=== PATIENT | male | born 1945 | race Caucasian/White ===

== ENCOUNTER 2017-09-11 21:24 | Emergency (ER) | payer OTHER ==
[~2017-09-11] VITALS: Ht 170.2 cm; Wt 69.0 kg
[~2017-09-11 21:24] MED LIST: ADV500 IH; ALBU8.5H8 IH; ESCI10TA PO; FLUT16H NASAL; MONT10TA21 PO; NAPR-58 PO; PANT40TA25 PO; PRED10 PO; ZOLP10TA7 PO
[2017-09-11 21:59] LABS: HEMATOCRIT 43.6 % (41-53); HEMOGLOBIN 14.7 g/dL (13.5-17.5); MEAN CORPUSCULAR HGB CONC 33.9 G/dL (31.0-37.0); MEAN CORPUSCULAR VOLUME 86 fL (80-100); PLATELET COUNT (AUTO) 247 K/uL (150-450); RED BLOOD CELL COUNT(AUTO) 5.09 MIL/uL (4.50-5.90); RED CELL DISTRIBUTION WIDTH 15.8 % (11.5-14.5)
[2017-09-11 22:21] LABS: ANION GAP 10 mmol/L (8-16); CALCIUM, TOTAL 8.8 mg/dL (8.8-10.5); CARBON DIOXIDE 26 mmol/L (22-29); CHLORIDE 101 mmol/L (98-107); CREATININE 0.95 mg/dL (0.60-1.30); GLOMERULAR FILTR. RATE CALC > 60 mL/min (>60); GLUCOSE,RANDOM 86 mg/dL (70-110); POTASSIUM 3.8 mmol/L (3.5-5.1); SODIUM SERUM 137 mmol/L (136-145); UREA NITROGEN, BLOOD 14 mg/dL (7-18)
[2017-09-11 22:24] LABS: ALANINE AMINOTRANSFERASE 34 U/L (12-78); ALBUMIN 3.6 g/dL (3.4-5.0); ALKALINE PHOSPHATASE 84 U/L (46-116); ASPARTATE AMINOTRANSFERASE 36 U/L (15-37)
[2017-09-11 22:25] LABS: INFLUENZA TYPE A POSITIVE FOR TYPE A (NEGATIVE); INFLUENZA TYPE B NEGATIVE FOR TYPE B (NEGATIVE)
[2017-09-11 22:41] LABS: BAND NEUTROPHILS % (MANUAL) 30 % (1-5); LYMPHOCYTES % (MANUAL) 2 % (22-44); MONOCYTES % (MANUAL) 3 % (2-9); SEGMENTED NEUTROPHILS % 65 % (40-70)
[2017-09-11] MEDS ORDERED: KETOROLAC TROMETHAMINE 30 MG/ML VIAL IVP ONE (22:45)
[2017-09-11] MEDS ORDERED: OSELTAMIVIR PHOSPHATE 75 MG CAPSULE PO ONE (22:45)
[2017-09-11] MEDS ORDERED: SODIUM CHLORIDE 0.9% 1,000 ML IV ONE (22:45)
[2017-09-11] MEDS ORDERED: ALBUTEROL SULFATE 2.5 MG/0.5 ML NEB SOLUTION NEB ONE (23:27)
[2017-09-12] MEDS ORDERED: 0.9% SODIUM CHLORIDE 5 ML NEB SOLUTION NEB ONE (00:08)
[2017-09-12 00:20] VITALS: BP 124/74
== END 2017-09-12 00:46 | disposition home or self-care (01) ==
LOC: EMS 21:26
DX: J11.1 Influenza due to unidentified influenza virus with other respiratory manifestations (principal); J02.9 Acute pharyngitis, unspecified; M79.1 Myalgia; J45.909 Unspecified asthma, uncomplicated; J44.9 Chronic obstructive pulmonary disease, unspecified; E11.9 Type 2 diabetes mellitus without complications
CPT/HCPCS: 36415; 71046; 80053; 83605; 85025; 87804; 93005; 94640; 96361; 96374; 99285; J1885; J7030

== ENCOUNTER 2018-10-31 14:21 | Emergency (ER) | payer OTHER ==
[~2018-10-31] VITALS: Ht 162.6 cm; Wt 72.7 kg
[~2018-10-31 14:21] MED LIST changes: -ESCI10TA PO; -NAPR-58 PO; -PANT40TA25 PO; -PRED10 PO; -ZOLP10TA7 PO
[2018-10-31 15:28] LABS: BASOPHILS % (AUTO) 1.1 % (0.0-2.0); EOSINOPHILS % (AUTO) 3.3 % (1.0-6.0); HEMATOCRIT 44.9 % (41-53); LYMPHOCYTES # (AUTO) 1.5 K/uL (1.0-4.8); LYMPHOCYTES % (AUTO) 20.3 % (22.0-44.0); MEAN CORPUSCULAR HEMOGLOBIN 27.6 pg (26.0-34.0); MEAN CORPUSCULAR HGB CONC 33.4 G/dL (31.0-37.0); MEAN CORPUSCULAR VOLUME 83 fL (80-100); MONOCYTES # (AUTO) 0.8 K/uL (0.1-1.0); NEUTROPHILS # (AUTO) 4.9 K/uL (1.8-7.7); NEUTROPHILS % (AUTO) 65.3 % (40.0-70.0); PLATELET COUNT (AUTO) 326 K/uL (150-450); RED BLOOD CELL COUNT(AUTO) 5.43 MIL/uL (4.50-5.90); RED CELL DISTRIBUTION WIDTH 15.1 % (11.5-14.5)
[2018-10-31 15:37] LABS: ANION GAP 8 mmol/L (8-16); CALCIUM, TOTAL 8.5 mg/dL (8.8-10.5); CARBON DIOXIDE 28 mmol/L (22-29); CHLORIDE 106 mmol/L (98-107); CREATININE 0.76 mg/dL (0.60-1.30); GLUCOSE,RANDOM 107 mg/dL (70-110); POTASSIUM 3.7 mmol/L (3.5-5.1); SODIUM SERUM 142 mmol/L (136-145); UREA NITROGEN, BLOOD 14 mg/dL (7-18)
[2018-10-31 15:38] LABS: GLOMERULAR FILTR. RATE CALC > 60 mL/min (>60)
[2018-10-31 15:44] LABS: ALANINE AMINOTRANSFERASE 45 U/L (12-78); ALBUMIN 2.5 g/dL (3.4-5.0); ALKALINE PHOSPHATASE 89 U/L (46-116); ASPARTATE AMINOTRANSFERASE 28 U/L (15-37); BILIRUBIN,TOTAL 0.5 mg/dL (0.1-1.0); TOTAL PROTEIN, SERUM 7.1 g/dL (6.4-8.2)
[2018-10-31] MEDS ORDERED: ALBUTEROL SULFATE 5 MG/ML 20 ML NEB SOLN [BULK] NEB ONE (16:30)
[2018-10-31] MEDS ORDERED: IPRATROPIUM BROMIDE 0.5 MG/2.5 ML NEB SOLUTION NEB ONE (16:30)
[2018-10-31] MEDS ORDERED: CefTRIAXone 1 GM/DEXTROSE 50 ML IV ONE (18:00)
[2018-10-31] MEDS ORDERED: MethylPREDNISolone SOD SUCC 125 MG/2 ML VIAL IVP ONE (18:00)
[2018-10-31] MEDS ORDERED: AZITHROMYCIN 500 MG/NS 250 ML IV ONE (18:00)
[2018-10-31] MEDS ORDERED: SODIUM CHLORIDE 0.9% 1,000 ML IV ONE (18:00)
[2018-10-31] MEDS ORDERED: ONDANSETRON HCL 4 MG/2 ML VIAL IVP PRN (19:00)
[2018-10-31] MEDS ORDERED: ACETAMINOPHEN 325 MG TABLET PO PRN (19:00)
[2018-10-31] MEDS ORDERED: 0.9% SODIUM CHLORIDE 10 ML SYRINGE IVP PRN (19:00)
[2018-10-31] MEDS ORDERED: ALBUTEROL SULFATE 2.5 MG/0.5 ML NEB SOLUTION NEB SCH (20:00)
[2018-10-31] MEDS ORDERED: IPRATROPIUM BROMIDE 0.5 MG/2.5 ML NEB SOLUTION NEB SCH (20:00)
[2018-10-31 22:20] VITALS: BP 106/76
== END 2018-10-31 23:11 | disposition short-term general hospital (02) ==
LOC: EMS 14:23
DX: J45.901 Unspecified asthma with (acute) exacerbation (principal); R09.02 Hypoxemia; J18.9 Pneumonia, unspecified organism; J44.9 Chronic obstructive pulmonary disease, unspecified
CPT/HCPCS: 36415; 70450; 71045; 80053; 83880; 84484; 85025; 87040; 93005; 94640; 96365; 96368; 96375; 99285; J0456; J0696; J2930; J7030

== ENCOUNTER 2019-04-26 06:01 | Day surgery (SDC) | payer OTHER ==
[~2019-04-26] VITALS: Ht 172.7 cm; Wt 65.9 kg
[~2019-04-26 06:01] MED LIST changes: +SODIUM CHLORIDE 0.9% 1,000 ML IV ONE
[2019-04-26] MEDS ORDERED: LIDOCAINE 4% 50 ML SOLUTION TP ONE (06:02)
[2019-04-26] MEDS ORDERED: BENZOCAINE 20% 50 MCG/SPRAY 57 GM TP ONE (06:02)
[2019-04-26] MEDS ORDERED: LIDOCAINE 2% 5 ML JELLY TP ONE ×2 (06:02)
[2019-04-26] MEDS ORDERED: ALBUTEROL SULFATE 2.5 MG/0.5 ML NEB SOLUTION NEB ONE (06:02)
[2019-04-26] MEDS ORDERED: SODIUM CHLORIDE 0.9% 1,000 ML IV ONE (06:30)
[2019-04-26] MEDS ORDERED: MEGE40 PO (06:54)
[2019-04-26] MEDS ORDERED: DULO30CA2 PO (06:54)
[2019-04-26] MEDS ORDERED: OMEP20 PO (06:54)
[2019-04-26] MEDS ORDERED: FentaNYL CITRATE-PF 100 MCG/2 ML VIAL ONE (07:40)
[2019-04-26] MEDS ORDERED: MIDAZOLAM HCL 2 MG/2 ML VIAL ONE (07:40)
[2019-04-26] MEDS ORDERED: MethylPREDNISolone SOD SUCC 125 MG/2 ML VIAL IVP ONE (08:30)
[2019-04-26] MEDS ORDERED: MethylPREDNISolone SOD SUCC 125 MG/2 ML VIAL ONE (08:48)
[2019-04-26] MEDS ORDERED: OXYGEN THERAPY IH SCH (20:00)
== END 2019-04-26 10:00 | disposition home or self-care (01) ==
LOC: SURGERY 06:01
PROVIDERS: ATTEND Internal Medicine Critical Care Medicine
DX: J38.4 Edema of larynx (principal); B37.0 Candidal stomatitis; J44.9 Chronic obstructive pulmonary disease, unspecified; J98.8 Other specified respiratory disorders; Z79.899 Other long term (current) drug therapy; Z98.890 Other specified postprocedural states
CPT/HCPCS: 31623; 31624; 71045; 87015; 87070; 87077; 87101; 87186; 87205; 87206; 87220; 88108; 88312; J2250; J2930; J3010; J7030

== ENCOUNTER 2019-06-08 21:26 | Inpatient (IN) | payer OTHER ==
[~2019-06-08] VITALS: Ht 162.6 cm; Wt 65.8 kg
[~2019-06-08 21:26] MED LIST changes: +DULO30CA2 PO; +MEGE40 PO; +OMEP20 PO; -SODIUM CHLORIDE 0.9% 1,000 ML IV ONE
[2019-06-08] MEDS ORDERED: PRED10TA3 PO (22:04)
[2019-06-08] MEDS ORDERED: GABA-531 PO (22:04)
[2019-06-08] MEDS ORDERED: ISON300T17 PO (22:04)
[2019-06-08] MEDS ORDERED: PYRA500 PO (22:04)
[2019-06-08] MEDS ORDERED: DIPH12.55 PO (22:04)
[2019-06-08] MEDS ORDERED: RIFA300C4 PO (22:04)
[2019-06-08] MEDS ORDERED: VIT1TABL76 PO (22:04)
[2019-06-08 23:16] LABS: EOSINOPHILS % (AUTO) 7.8 % (1.0-6.0); HEMATOCRIT 43.3 % (41-53); HEMOGLOBIN 14.3 g/dL (13.5-17.5); LYMPHOCYTES # (AUTO) 1.4 K/uL (1.0-4.8); LYMPHOCYTES % (AUTO) 13.6 % (22.0-44.0); MEAN CORPUSCULAR HGB CONC 33.1 G/dL (31.0-37.0); MEAN CORPUSCULAR VOLUME 88 fL (80-100); MONOCYTES # (AUTO) 0.9 K/uL (0.1-1.0); MONOCYTES % (AUTO) 9.1 % (2.0-9.0); NEUTROPHILS % (AUTO) 68.5 % (40.0-70.0); PLATELET COUNT (AUTO) 243 K/uL (150-450); RED BLOOD CELL COUNT(AUTO) 4.94 MIL/uL (4.50-5.90); RED CELL DISTRIBUTION WIDTH 15.5 % (11.5-14.5)
[2019-06-08 23:25] LABS: ANION GAP 8 mmol/L (8-16); CALCIUM, TOTAL 8.1 mg/dL (8.8-10.5); CARBON DIOXIDE 27 mmol/L (22-29); CHLORIDE 108 mmol/L (98-107); CREATININE 0.86 mg/dL (0.60-1.30); GLUCOSE,RANDOM 84 mg/dL (70-110); POTASSIUM 4.5 mmol/L (3.5-5.1); SODIUM SERUM 143 mmol/L (136-145); UREA NITROGEN, BLOOD 19 mg/dL (7-18)
[2019-06-08 23:26] LABS: GLOMERULAR FILTR. RATE CALC > 60 mL/min (>60)
[2019-06-08 23:33] LABS: LACTIC ACID 0.8 mmol/L (0.4-2.0)
[2019-06-08 23:40] LABS: ALANINE AMINOTRANSFERASE 22 U/L (12-78); ALBUMIN 2.7 g/dL (3.4-5.0); ALKALINE PHOSPHATASE 91 U/L (46-116); ASPARTATE AMINOTRANSFERASE 17 U/L (15-37); BILIRUBIN,TOTAL 1.1 mg/dL (0.1-1.0); TOTAL PROTEIN, SERUM 7.3 g/dL (6.4-8.2)
[2019-06-08] MEDS ORDERED: VANCOMYCIN HCL 1.25 GM in DEXTROSE 5%-WATER 250 ML IV ONE (23:45)
[2019-06-08] MEDS ORDERED: CEFEPIME HCL 1 GM in DEXTROSE 5%-WATER 50 ML IV ONE (23:45)
[2019-06-08] MEDS ORDERED: VANCOMYCIN HCL 1.5 GM in DEXTROSE 5%-WATER 250 ML IV ONE (23:45)
[2019-06-09] MEDS ORDERED: 0.9% SODIUM CHLORIDE 10 ML SYRINGE IVP PRN (00:30)
[2019-06-09] MEDS ORDERED: ONDANSETRON HCL 4 MG/2 ML VIAL IVP PRN ×2 (00:30→18:00)
[2019-06-09] MEDS ORDERED: ACETAMINOPHEN 325 MG TABLET PO PRN (00:30)
[2019-06-09 01:00] VITALS: BP 110/57
[2019-06-09 02:30] VITALS: BP 110/57
[2019-06-09 07:43] VITALS: BP 107/67
[2019-06-09 11:47] VITALS: BP 104/67
[2019-06-09 15:27] VITALS: BP 110/70
[2019-06-09] MEDS ORDERED: SODIUM CHLORIDE 0.9% 500 ML IV ONE (17:05)
[2019-06-09] MEDS: RIFAMPIN 300 MG CAPSULE PO SCH (17:35)
[2019-06-09] MEDS: ISONIAZID 300 MG TABLET PO SCH (17:35)
[2019-06-09] MEDS: PYRAZINAMIDE 500 MG TABLET PO SCH (17:35)
[2019-06-09] MEDS: CefTRIAXone 1 GM/DEXTROSE 50 ML IV SCH (17:35)
[2019-06-09] MEDS ORDERED: BISACODYL 10 MG RECTAL RECTAL SUPPOSITORY PR PRN (18:00)
[2019-06-09] MEDS: AZITHROMYCIN 250 MG in SODIUM CHLORIDE 0.9% 150 ML IV SCH (18:16)
[2019-06-09] MEDS ORDERED: ALBUTEROL SULFATE 2.5 MG/0.5 ML NEB SOLUTION NEB PRN (18:30)
[2019-06-09] MEDS: IPRATROPIUM BROMIDE 0.5 MG/2.5 ML NEB SOLUTION NEB SCH ×2 (19:20→23:06)
[2019-06-09] MEDS: ALBUTEROL SULFATE 2.5 MG/0.5 ML NEB SOLUTION NEB SCH ×2 (19:20→23:06)
[2019-06-09 19:51] VITALS: BP 98/60
[2019-06-10 00:07] VITALS: BP 109/66
[2019-06-10] MEDS: IPRATROPIUM BROMIDE 0.5 MG/2.5 ML NEB SOLUTION NEB SCH ×6 (02:31→23:21)
[2019-06-10] MEDS: ALBUTEROL SULFATE 2.5 MG/0.5 ML NEB SOLUTION NEB SCH ×6 (02:31→23:21)
[2019-06-10 04:25] VITALS: BP 105/58
[2019-06-10 05:38] LABS: BASOPHILS % (AUTO) 1.2 % (0.0-2.0); EOSINOPHILS % (AUTO) 7.5 % (1.0-6.0); HEMOGLOBIN 14.7 g/dL (13.5-17.5); LYMPHOCYTES # (AUTO) 1.5 K/uL (1.0-4.8); LYMPHOCYTES % (AUTO) 14.7 % (22.0-44.0); MEAN CORPUSCULAR HEMOGLOBIN 29.6 pg (26.0-34.0); MEAN CORPUSCULAR HGB CONC 34.1 G/dL (31.0-37.0); MEAN CORPUSCULAR VOLUME 87 fL (80-100); MONOCYTES # (AUTO) 0.8 K/uL (0.1-1.0); MONOCYTES % (AUTO) 8.2 % (2.0-9.0); NEUTROPHILS # (AUTO) 6.8 K/uL (1.8-7.7); NEUTROPHILS % (AUTO) 68.4 % (40.0-70.0); PLATELET COUNT (AUTO) 232 K/uL (150-450); RED BLOOD CELL COUNT(AUTO) 4.96 MIL/uL (4.50-5.90); RED CELL DISTRIBUTION WIDTH 14.9 % (11.5-14.5)
[2019-06-10 06:00] LABS: ALANINE AMINOTRANSFERASE 17 U/L (12-78); ALBUMIN 2.7 g/dL (3.4-5.0); ALKALINE PHOSPHATASE 86 U/L (46-116); ANION GAP 10 mmol/L (8-16); ASPARTATE AMINOTRANSFERASE 17 U/L (15-37); BILIRUBIN,TOTAL 1.4 mg/dL (0.1-1.0); CALCIUM, TOTAL 8.5 mg/dL (8.8-10.5); CARBON DIOXIDE 25 mmol/L (22-29); CHLORIDE 104 mmol/L (98-107); CREATININE 0.65 mg/dL (0.60-1.30); GLOMERULAR FILTR. RATE CALC > 60 mL/min (>60); GLUCOSE,RANDOM 85 mg/dL (70-110); POTASSIUM 3.9 mmol/L (3.5-5.1); SODIUM SERUM 139 mmol/L (136-145); TOTAL PROTEIN, SERUM 7.3 g/dL (6.4-8.2); UREA NITROGEN, BLOOD 11 mg/dL (7-18)
[2019-06-10 07:05] VITALS: BP 105/56
[2019-06-10] MEDS: PYRAZINAMIDE 500 MG TABLET PO SCH (09:05)
[2019-06-10] MEDS: ISONIAZID 300 MG TABLET PO SCH (09:05)
[2019-06-10] MEDS: RIFAMPIN 300 MG CAPSULE PO SCH (09:05)
[2019-06-10 11:47] VITALS: BP 132/72
[2019-06-10 16:11] VITALS: BP 99/60
[2019-06-10] MEDS: CefTRIAXone 1 GM/DEXTROSE 50 ML IV SCH (16:43)
[2019-06-10] MEDS: AZITHROMYCIN 250 MG in SODIUM CHLORIDE 0.9% 150 ML IV SCH (17:43)
[2019-06-10 20:10] VITALS: BP 100/65
[2019-06-11] VITALS (7 sets, daily range): BP systolic 95–117; BP diastolic 56–78
[2019-06-11] MEDS: ALBUTEROL SULFATE 2.5 MG/0.5 ML NEB SOLUTION NEB SCH ×6 (03:56→22:33)
[2019-06-11] MEDS: IPRATROPIUM BROMIDE 0.5 MG/2.5 ML NEB SOLUTION NEB SCH ×6 (03:56→22:33)
[2019-06-11 06:30] LABS: ALANINE AMINOTRANSFERASE 15 U/L (12-78); ALBUMIN 2.5 g/dL (3.4-5.0); ALKALINE PHOSPHATASE 85 U/L (46-116); ANION GAP 13 mmol/L (8-16); ASPARTATE AMINOTRANSFERASE 15 U/L (15-37); BILIRUBIN,TOTAL 0.6 mg/dL (0.1-1.0); CALCIUM, TOTAL 8.2 mg/dL (8.8-10.5); CARBON DIOXIDE 22 mmol/L (22-29); CHLORIDE 105 mmol/L (98-107); CREATININE 0.58 mg/dL (0.60-1.30); GLUCOSE,RANDOM 80 mg/dL (70-110); POTASSIUM 3.5 mmol/L (3.5-5.1); SODIUM SERUM 140 mmol/L (136-145); TOTAL PROTEIN, SERUM 7.3 g/dL (6.4-8.2); UREA NITROGEN, BLOOD 10 mg/dL (7-18)
[2019-06-11 06:46] LABS: GLOMERULAR FILTR. RATE CALC > 60 mL/min (>60)
[2019-06-11 07:16] LABS: HIV 1-2 SCREEN 4TH GEN W/RFLX Non Reactive (Non Reactive)
[2019-06-11] MEDS: ISONIAZID 300 MG TABLET PO SCH (08:25)
[2019-06-11] MEDS: RIFAMPIN 300 MG CAPSULE PO SCH (08:25)
[2019-06-11] MEDS: PYRIDOXINE HCL 50 MG TABLET PO SCH (08:25)
[2019-06-11] MEDS: PYRAZINAMIDE 500 MG TABLET PO SCH (08:25)
[2019-06-11] MEDS ORDERED: DIPH25 PO (10:54)
[2019-06-11] MEDS: AZITHROMYCIN 500 MG/NS 250 ML IV SCH (12:18)
[2019-06-11] MEDS: FAMOTIDINE 20 MG TABLET PO SCH ×2 (12:18→20:40)
[2019-06-11] MEDS: ACETAMINOPHEN 325 MG TABLET PO PRN ×2 (14:07→22:54)
[2019-06-11] MEDS: CefTRIAXone 1 GM/DEXTROSE 50 ML IV SCH (16:15)
[2019-06-12] MEDS: ALBUTEROL SULFATE 2.5 MG/0.5 ML NEB SOLUTION NEB SCH ×6 (02:38→23:23)
[2019-06-12] MEDS: IPRATROPIUM BROMIDE 0.5 MG/2.5 ML NEB SOLUTION NEB SCH ×6 (02:38→23:23)
[2019-06-12 05:33] VITALS: BP 105/67
[2019-06-12 07:19] LABS: BASOPHILS % (AUTO) 1.3 % (0.0-2.0); EOSINOPHILS % (AUTO) 9.2 % (1.0-6.0); HEMATOCRIT 39.8 % (41-53); HEMOGLOBIN 13.5 g/dL (13.5-17.5); LYMPHOCYTES % (AUTO) 13.2 % (22.0-44.0); MEAN CORPUSCULAR HEMOGLOBIN 29.1 pg (26.0-34.0); MEAN CORPUSCULAR HGB CONC 33.8 G/dL (31.0-37.0); MEAN CORPUSCULAR VOLUME 86 fL (80-100); MONOCYTES # (AUTO) 0.6 K/uL (0.1-1.0); MONOCYTES % (AUTO) 8.2 % (2.0-9.0); NEUTROPHILS # (AUTO) 5.3 K/uL (1.8-7.7); NEUTROPHILS % (AUTO) 68.1 % (40.0-70.0); PLATELET COUNT (AUTO) 210 K/uL (150-450); RED BLOOD CELL COUNT(AUTO) 4.62 MIL/uL (4.50-5.90); RED CELL DISTRIBUTION WIDTH 14.9 % (11.5-14.5)
[2019-06-12 07:40] LABS: ALANINE AMINOTRANSFERASE 13 U/L (12-78); ALBUMIN 2.3 g/dL (3.4-5.0); ALKALINE PHOSPHATASE 76 U/L (46-116); ANION GAP 11 mmol/L (8-16); ASPARTATE AMINOTRANSFERASE 17 U/L (15-37); BILIRUBIN,TOTAL 0.4 mg/dL (0.1-1.0); CARBON DIOXIDE 23 mmol/L (22-29); CHLORIDE 104 mmol/L (98-107); CREATININE 0.57 mg/dL (0.60-1.30); GLUCOSE,RANDOM 83 mg/dL (70-110); POTASSIUM 3.7 mmol/L (3.5-5.1); SODIUM SERUM 138 mmol/L (136-145); TOTAL PROTEIN, SERUM 6.7 g/dL (6.4-8.2); UREA NITROGEN, BLOOD 11 mg/dL (7-18)
[2019-06-12 07:45] LABS: GLOMERULAR FILTR. RATE CALC > 60 mL/min (>60)
[2019-06-12 08:17] VITALS: BP 100/60
[2019-06-12] MEDS: FAMOTIDINE 20 MG TABLET PO SCH ×2 (10:06→20:55)
[2019-06-12] MEDS: ISONIAZID 300 MG TABLET PO SCH (10:07)
[2019-06-12] MEDS: PYRAZINAMIDE 500 MG TABLET PO SCH (10:07)
[2019-06-12] MEDS: RIFAMPIN 300 MG CAPSULE PO SCH (10:07)
[2019-06-12] MEDS: PYRIDOXINE HCL 50 MG TABLET PO SCH (10:08)
[2019-06-12] MEDS: AZITHROMYCIN 500 MG/NS 250 ML IV SCH (11:55)
[2019-06-12] MEDS: OxyCODONE HCL/ACETAMINOPHEN 5-325 MG TABLET PO PRN (11:57)
[2019-06-12 12:22] VITALS: BP 98/60
[2019-06-12 15:24] VITALS: BP 101/67
[2019-06-12] MEDS: CefTRIAXone 1 GM/DEXTROSE 50 ML IV SCH (16:19)
[2019-06-12 17:37] LABS: QUANTIFERON+, Nil Value 0.02 IU/mL; QUANTIFERON+,Mitogen Value 3.31 IU/mL; QUANTIFERON+,TB1 Antigen Value 0.21 IU/mL; QUANTIFERON, TB GOLD PLUS Negative (Negative)
[2019-06-12 20:51] VITALS: BP 99/65
[2019-06-12] MEDS: ACETAMINOPHEN 325 MG TABLET PO PRN (20:56)
[2019-06-13 00:30] VITALS: BP 95/64
[2019-06-13] MEDS: IPRATROPIUM BROMIDE 0.5 MG/2.5 ML NEB SOLUTION NEB SCH ×6 (03:43→23:00)
[2019-06-13] MEDS: ALBUTEROL SULFATE 2.5 MG/0.5 ML NEB SOLUTION NEB SCH ×6 (03:43→23:00)
[2019-06-13 05:45] VITALS: BP 109/59
[2019-06-13 08:00] VITALS: BP 102/64
[2019-06-13] MEDS: PYRIDOXINE HCL 50 MG TABLET PO SCH (08:43)
[2019-06-13] MEDS: RIFAMPIN 300 MG CAPSULE PO SCH (08:43)
[2019-06-13] MEDS: ISONIAZID 300 MG TABLET PO SCH (08:43)
[2019-06-13] MEDS: FAMOTIDINE 20 MG TABLET PO SCH ×2 (08:44→21:32)
[2019-06-13] MEDS: PYRAZINAMIDE 500 MG TABLET PO SCH (08:44)
[2019-06-13] MEDS: OxyCODONE HCL/ACETAMINOPHEN 5-325 MG TABLET PO PRN ×2 (08:48→21:38)
[2019-06-13 09:33] LABS: HEMATOCRIT 42.4 % (41-53); HEMOGLOBIN 14.2 g/dL (13.5-17.5); MEAN CORPUSCULAR HEMOGLOBIN 28.9 pg (26.0-34.0); MEAN CORPUSCULAR HGB CONC 33.4 G/dL (31.0-37.0); MEAN CORPUSCULAR VOLUME 87 fL (80-100); PLATELET COUNT (AUTO) 228 K/uL (150-450); RED CELL DISTRIBUTION WIDTH 14.7 % (11.5-14.5)
[2019-06-13 09:43] LABS: ANION GAP 13 mmol/L (8-16); CALCIUM, TOTAL 8.3 mg/dL (8.8-10.5); CARBON DIOXIDE 21 mmol/L (22-29); CHLORIDE 103 mmol/L (98-107); CREATININE 0.54 mg/dL (0.60-1.30); GLOMERULAR FILTR. RATE CALC > 60 mL/min (>60); GLUCOSE,RANDOM 120 mg/dL (70-110); POTASSIUM 3.7 mmol/L (3.5-5.1); SODIUM SERUM 137 mmol/L (136-145); UREA NITROGEN, BLOOD 11 mg/dL (7-18)
[2019-06-13 10:08] LABS: BAND NEUTROPHILS % (MANUAL) 2 % (0-5); EOSINOPHILS % (MANUAL) 9 % (1-6); LYMPHOCYTES % (MANUAL) 14 % (22-44); MONOCYTES % (MANUAL) 7 % (2-9); SEGMENTED NEUTROPHILS % 68 % (40-70)
[2019-06-13 11:30] VITALS: BP 91/50
[2019-06-13 13:20] VITALS: BP 101/57
[2019-06-13] MEDS: CefTRIAXone 1 GM/DEXTROSE 50 ML IV SCH (17:14)
[2019-06-13 19:30] VITALS: BP 109/60
[2019-06-14] MEDS: ALBUTEROL SULFATE 2.5 MG/0.5 ML NEB SOLUTION NEB SCH ×6 (02:43→22:51)
[2019-06-14] MEDS: IPRATROPIUM BROMIDE 0.5 MG/2.5 ML NEB SOLUTION NEB SCH ×6 (02:43→22:51)
[2019-06-14 04:00] VITALS: BP 118/72
[2019-06-14 05:41] LABS: BASOPHILS % (AUTO) 0.6 % (0.0-2.0); EOSINOPHILS % (AUTO) 7.2 % (1.0-6.0); HEMATOCRIT 42.7 % (41-53); HEMOGLOBIN 14.2 g/dL (13.5-17.5); LYMPHOCYTES % (AUTO) 11.7 % (22.0-44.0); MEAN CORPUSCULAR HEMOGLOBIN 28.6 pg (26.0-34.0); MEAN CORPUSCULAR HGB CONC 33.3 G/dL (31.0-37.0); MEAN CORPUSCULAR VOLUME 86 fL (80-100); MONOCYTES # (AUTO) 0.5 K/uL (0.1-1.0); MONOCYTES % (AUTO) 5.9 % (2.0-9.0); NEUTROPHILS # (AUTO) 6.5 K/uL (1.8-7.7); NEUTROPHILS % (AUTO) 74.6 % (40.0-70.0); PLATELET COUNT (AUTO) 252 K/uL (150-450); RED BLOOD CELL COUNT(AUTO) 4.97 MIL/uL (4.50-5.90); RED CELL DISTRIBUTION WIDTH 14.8 % (11.5-14.5)
[2019-06-14 05:59] LABS: ALANINE AMINOTRANSFERASE 19 U/L (12-78); ALBUMIN 2.4 g/dL (3.4-5.0); ALKALINE PHOSPHATASE 83 U/L (46-116); ANION GAP 10 mmol/L (8-16); ASPARTATE AMINOTRANSFERASE 26 U/L (15-37); BILIRUBIN,TOTAL 0.3 mg/dL (0.1-1.0); CALCIUM, TOTAL 8.2 mg/dL (8.8-10.5); CARBON DIOXIDE 24 mmol/L (22-29); CHLORIDE 102 mmol/L (98-107); GLUCOSE,RANDOM 82 mg/dL (70-110); POTASSIUM 3.8 mmol/L (3.5-5.1); SODIUM SERUM 136 mmol/L (136-145); TOTAL PROTEIN, SERUM 7.1 g/dL (6.4-8.2); UREA NITROGEN, BLOOD 10 mg/dL (7-18)
[2019-06-14 06:02] LABS: GLOMERULAR FILTR. RATE CALC > 60 mL/min (>60)
[2019-06-14 07:47] VITALS: BP 119/63
[2019-06-14] MEDS: RIFAMPIN 300 MG CAPSULE PO SCH (08:08)
[2019-06-14] MEDS: PYRIDOXINE HCL 50 MG TABLET PO SCH (08:09)
[2019-06-14] MEDS: PYRAZINAMIDE 500 MG TABLET PO SCH (08:09)
[2019-06-14] MEDS: ISONIAZID 300 MG TABLET PO SCH (08:09)
[2019-06-14] MEDS: FAMOTIDINE 20 MG TABLET PO SCH ×2 (08:09→20:23)
[2019-06-14] MEDS ORDERED: GADOBUTROL 1 MMOL/ML 10 ML VIAL IVP ONE (08:30)
[2019-06-14 11:22] VITALS: BP 117/71
[2019-06-14 11:25] LABS: LEGIONELLA PNEUMO AG URINE Negative (Negative); ORGANISM ID Not indicated.; S PNEUMO SOURCE Urine; STREP PNEUMONIAE AG URINE Negative (Negative); STREP.PNEUMO BODY FLUID CULT. Not Indicated
[2019-06-14] MEDS: OxyCODONE HCL/ACETAMINOPHEN 5-325 MG TABLET PO PRN ×2 (11:25→20:23)
[2019-06-14 15:37] VITALS: BP 91/59
[2019-06-14] MEDS: CefTRIAXone 1 GM/DEXTROSE 50 ML IV SCH (16:59)
[2019-06-14 20:25] VITALS: BP 131/90
[2019-06-14 23:35] VITALS: BP 143/87
[2019-06-15] MEDS: IPRATROPIUM BROMIDE 0.5 MG/2.5 ML NEB SOLUTION NEB SCH ×6 (03:31→23:33)
[2019-06-15] MEDS: ALBUTEROL SULFATE 2.5 MG/0.5 ML NEB SOLUTION NEB SCH ×6 (03:31→23:33)
[2019-06-15 04:00] VITALS: BP 127/87
[2019-06-15 05:23] LABS: BASOPHILS % (AUTO) 0.5 % (0.0-2.0); EOSINOPHILS % (AUTO) 4.9 % (1.0-6.0); LYMPHOCYTES # (AUTO) 1.3 K/uL (1.0-4.8); LYMPHOCYTES % (AUTO) 11.9 % (22.0-44.0); MEAN CORPUSCULAR HGB CONC 34.8 G/dL (31.0-37.0); MEAN CORPUSCULAR VOLUME 86 fL (80-100); MONOCYTES # (AUTO) 0.7 K/uL (0.1-1.0); MONOCYTES % (AUTO) 6.9 % (2.0-9.0); NEUTROPHILS # (AUTO) 8.2 K/uL (1.8-7.7); NEUTROPHILS % (AUTO) 75.8 % (40.0-70.0); PLATELET COUNT (AUTO) 278 K/uL (150-450); RED BLOOD CELL COUNT(AUTO) 4.99 MIL/uL (4.50-5.90); RED CELL DISTRIBUTION WIDTH 14.6 % (11.5-14.5)
[2019-06-15 05:33] LABS: ANION GAP 10 mmol/L (8-16); CALCIUM, TOTAL 8.5 mg/dL (8.8-10.5); CARBON DIOXIDE 24 mmol/L (22-29); CHLORIDE 97 mmol/L (98-107); GLUCOSE,RANDOM 90 mg/dL (70-110); POTASSIUM 3.8 mmol/L (3.5-5.1); SODIUM SERUM 131 mmol/L (136-145); UREA NITROGEN, BLOOD 11 mg/dL (7-18)
[2019-06-15 05:34] LABS: GLOMERULAR FILTR. RATE CALC > 60 mL/min (>60)
[2019-06-15 07:00] VITALS: BP 94/69
[2019-06-15] MEDS: RIFAMPIN 300 MG CAPSULE PO SCH (09:07)
[2019-06-15] MEDS: FAMOTIDINE 20 MG TABLET PO SCH ×2 (09:07→20:02)
[2019-06-15] MEDS: ISONIAZID 300 MG TABLET PO SCH (09:07)
[2019-06-15] MEDS: PYRIDOXINE HCL 50 MG TABLET PO SCH (09:07)
[2019-06-15] MEDS: PYRAZINAMIDE 500 MG TABLET PO SCH (09:08)
[2019-06-15] MEDS: OxyCODONE HCL/ACETAMINOPHEN 5-325 MG TABLET PO PRN ×2 (10:51→20:02)
[2019-06-15 11:00] VITALS: BP 102/61
[2019-06-15 15:00] VITALS: BP 97/64
[2019-06-15] MEDS: CefTRIAXone 1 GM/DEXTROSE 50 ML IV SCH (17:25)
[2019-06-15 20:30] VITALS: BP 108/71
[2019-06-16] VITALS (7 sets, daily range): BP systolic 89–136; BP diastolic 59–75
[2019-06-16] MEDS: IPRATROPIUM BROMIDE 0.5 MG/2.5 ML NEB SOLUTION NEB SCH ×4 (03:31→15:11)
[2019-06-16] MEDS: ALBUTEROL SULFATE 2.5 MG/0.5 ML NEB SOLUTION NEB SCH ×4 (03:31→15:11)
[2019-06-16 05:44] LABS: BASOPHILS % (AUTO) 0.7 % (0.0-2.0); EOSINOPHILS % (AUTO) 5.9 % (1.0-6.0); HEMATOCRIT 41.2 % (41-53); LYMPHOCYTES # (AUTO) 1.3 K/uL (1.0-4.8); LYMPHOCYTES % (AUTO) 13.8 % (22.0-44.0); MEAN CORPUSCULAR HEMOGLOBIN 29.1 pg (26.0-34.0); MEAN CORPUSCULAR VOLUME 86 fL (80-100); MONOCYTES # (AUTO) 0.7 K/uL (0.1-1.0); MONOCYTES % (AUTO) 8.1 % (2.0-9.0); NEUTROPHILS # (AUTO) 6.6 K/uL (1.8-7.7); NEUTROPHILS % (AUTO) 71.5 % (40.0-70.0); PLATELET COUNT (AUTO) 300 K/uL (150-450); RED BLOOD CELL COUNT(AUTO) 4.81 MIL/uL (4.50-5.90); RED CELL DISTRIBUTION WIDTH 14.4 % (11.5-14.5)
[2019-06-16 05:53] LABS: ANION GAP 9 mmol/L (8-16); CALCIUM, TOTAL 8.3 mg/dL (8.8-10.5); CARBON DIOXIDE 25 mmol/L (22-29); CHLORIDE 97 mmol/L (98-107); CREATININE 0.55 mg/dL (0.60-1.30); GLUCOSE,RANDOM 86 mg/dL (70-110); POTASSIUM 3.7 mmol/L (3.5-5.1); SODIUM SERUM 131 mmol/L (136-145); UREA NITROGEN, BLOOD 10 mg/dL (7-18)
[2019-06-16 05:57] LABS: GLOMERULAR FILTR. RATE CALC > 60 mL/min (>60)
[2019-06-16] MEDS: PYRIDOXINE HCL 50 MG TABLET PO SCH (08:07)
[2019-06-16] MEDS: FAMOTIDINE 20 MG TABLET PO SCH ×2 (08:07→20:12)
[2019-06-16] MEDS: RIFAMPIN 300 MG CAPSULE PO SCH (08:07)
[2019-06-16] MEDS: ISONIAZID 300 MG TABLET PO SCH (08:07)
[2019-06-16] MEDS: PYRAZINAMIDE 500 MG TABLET PO SCH (08:07)
[2019-06-16] MEDS: CefTAZidime PENTAHYDRATE 2 GM in DEXTROSE 5%-WATER 50 ML IV SCH ×2 (13:56→20:12)
[2019-06-16] MEDS ORDERED: SODIUM CHLORIDE 0.9% 500 ML IV ONE (20:15)
[2019-06-17] MEDS: ALBUTEROL SULFATE 2.5 MG/0.5 ML NEB SOLUTION NEB SCH ×6 (04:34→23:41)
[2019-06-17] MEDS: IPRATROPIUM BROMIDE 0.5 MG/2.5 ML NEB SOLUTION NEB SCH ×6 (04:34→23:41)
[2019-06-17 05:30] VITALS: BP 115/68
[2019-06-17] MEDS: CefTAZidime PENTAHYDRATE 2 GM in DEXTROSE 5%-WATER 50 ML IV SCH ×3 (05:43→21:25)
[2019-06-17 07:10] VITALS: BP 103/58
[2019-06-17] MEDS: PYRIDOXINE HCL 50 MG TABLET PO SCH (08:21)
[2019-06-17] MEDS: FAMOTIDINE 20 MG TABLET PO SCH ×2 (08:21→21:16)
[2019-06-17] MEDS: RIFAMPIN 300 MG CAPSULE PO SCH (08:21)
[2019-06-17] MEDS: PYRAZINAMIDE 500 MG TABLET PO SCH (08:21)
[2019-06-17] MEDS: ISONIAZID 300 MG TABLET PO SCH (08:22)
[2019-06-17 11:56] VITALS: BP 114/64
[2019-06-17] MEDS ORDERED: CEFT2VIA IV (13:58)
[2019-06-17 15:12] VITALS: BP 119/60
[2019-06-17 20:31] VITALS: BP 108/63
[2019-06-17] MEDS ORDERED: SODIUM CHLORIDE 0.9% 250 ML IV ONE (23:24)
[2019-06-18 00:11] VITALS: BP 108/57
[2019-06-18] MEDS: IPRATROPIUM BROMIDE 0.5 MG/2.5 ML NEB SOLUTION NEB SCH ×5 (04:25→19:59)
[2019-06-18] MEDS: ALBUTEROL SULFATE 2.5 MG/0.5 ML NEB SOLUTION NEB SCH ×5 (04:25→19:59)
[2019-06-18] MEDS: CefTAZidime PENTAHYDRATE 2 GM in DEXTROSE 5%-WATER 50 ML IV SCH ×3 (04:31→18:44)
[2019-06-18 05:38] VITALS: BP 95/59
[2019-06-18 08:19] VITALS: BP 94/55
[2019-06-18] MEDS: ISONIAZID 300 MG TABLET PO SCH (08:51)
[2019-06-18] MEDS: FAMOTIDINE 20 MG TABLET PO SCH (08:51)
[2019-06-18] MEDS: PYRIDOXINE HCL 50 MG TABLET PO SCH (08:51)
[2019-06-18] MEDS: PYRAZINAMIDE 500 MG TABLET PO SCH (08:51)
[2019-06-18] MEDS: RIFAMPIN 300 MG CAPSULE PO SCH (08:51)
[2019-06-18 12:06] VITALS: BP 88/60
[2019-06-18 12:24] VITALS: BP 96/60
== END 2019-06-18 20:37 | disposition home health service (06) | DRG 193 ==
LOC: EMS 21:26 → 5N 06-09 02:00 → 4E 06-09 14:30
PROVIDERS: ADMIT Internal Medicine; ATTEND Internal Medicine
DX: J18.9 Pneumonia, unspecified organism (principal); E43 Unspecified severe protein-calorie malnutrition; I82.501 Chronic embolism and thrombosis of unspecified deep veins of right lower extremity; A15.0 Tuberculosis of lung; G35 Multiple sclerosis; Z95.828 Presence of other vascular implants and grafts; Z79.899 Other long term (current) drug therapy; Z86.11 Personal history of tuberculosis; Z68.24 Body mass index [BMI] 24.0-24.9, adult; Z83.3 Family history of diabetes mellitus; Z82.49 Family history of ischemic heart disease and other diseases of the circulatory system
CPT/HCPCS: 72158; 73721; 83605; 84145; 85007; 86480; 87015; 87040; 87070; 87081; 87205; 87206; 87389; 87449; 87556; 87899; 93005; 93970; 94640; A9585; G0378; J0456; J0692; J0696; J0713; J3370; J7040; J7050; J7060

== ENCOUNTER 2019-07-02 10:15 | Emergency (ER) | payer OTHER ==
[~2019-07-02] VITALS: Ht 160 cm; Wt 63.5 kg
[~2019-07-02 10:15] MED LIST changes: +CEFT2VIA IV; +DIPH25 PO; -FLUT16H NASAL; +GABA-531 PO; +ISON300T17 PO; -MEGE40 PO; +PYRA500 PO; +RIFA300C4 PO; +VIT1TABL76 PO
[2019-07-02 11:45] VITALS: BP 121/73
== END 2019-07-02 11:55 | disposition home or self-care (01) ==
LOC: EMS 10:17
DX: A15.0 Tuberculosis of lung (principal); H10.9 Unspecified conjunctivitis; J45.909 Unspecified asthma, uncomplicated

== ENCOUNTER 2019-10-10 10:34 | Inpatient (IN) | payer OTHER ==
[~2019-10-10] VITALS: Ht 160 cm; Wt 66.8 kg
[2019-10-10] MEDS ORDERED: SODIUM CHLORIDE 0.9% 1,000 ML IV ONE ×4 (11:00→16:15)
[2019-10-10] MEDS ORDERED: VANCOMYCIN HCL 1 GM/D5% WATER 200 ML IV ONE (11:00)
[2019-10-10] MEDS ORDERED: PIPERACILLIN/TAZO 3.375 GM/D5W 50 ML IV ONE (11:00)
[2019-10-10] MEDS ORDERED: ACETAMINOPHEN 1000 MG/ISO-OSM 100 ML IV ONE (11:00)
[2019-10-10] MEDS ORDERED: 0.9% SODIUM CHLORIDE 10 ML SYRINGE IVP PRN ×2 (11:00→14:15)
[2019-10-10 11:14] LABS: BASOPHILS % (AUTO) 0.3 % (0.0-2.0); EOSINOPHILS % (AUTO) 0 % (1.0-6.0); HEMATOCRIT 45.4 % (41-53); LYMPHOCYTES # (AUTO) 0.3 K/uL (1.0-4.8); MEAN CORPUSCULAR HEMOGLOBIN 28.7 pg (26.0-34.0); MEAN CORPUSCULAR HGB CONC 33.1 G/dL (31.0-37.0); MEAN CORPUSCULAR VOLUME 87 fL (80-100); MONOCYTES # (AUTO) 0.2 K/uL (0.1-1.0); MONOCYTES % (AUTO) 1.8 % (2.0-9.0); NEUTROPHILS # (AUTO) 12.6 K/uL (1.8-7.7); NEUTROPHILS % (AUTO) 95.9 % (40.0-70.0); PLATELET COUNT (AUTO) 251 K/uL (150-450); RED BLOOD CELL COUNT(AUTO) 5.24 MIL/uL (4.50-5.90); RED CELL DISTRIBUTION WIDTH 15.8 % (11.5-14.5)
[2019-10-10] MEDS ORDERED: ONDANSETRON HCL 4 MG/2 ML VIAL IVP ONE (11:15)
[2019-10-10 11:24] LABS: ANION GAP 10 mmol/L (8-16); CALCIUM, TOTAL 8.9 mg/dL (8.8-10.5); CARBON DIOXIDE 26 mmol/L (22-29); CHLORIDE 101 mmol/L (98-107); CREATININE 0.64 mg/dL (0.60-1.30); GLUCOSE,RANDOM 139 mg/dL (70-110); POTASSIUM 3.4 mmol/L (3.5-5.1); SODIUM SERUM 137 mmol/L (136-145); UREA NITROGEN, BLOOD 12 mg/dL (7-18)
[2019-10-10 11:25] LABS: GLOMERULAR FILTR. RATE CALC > 60 mL/min (>60)
[2019-10-10 11:30] LABS: ALANINE AMINOTRANSFERASE 87 U/L (12-78); ALBUMIN 3.1 g/dL (3.4-5.0); ALKALINE PHOSPHATASE 96 U/L (46-116); ASPARTATE AMINOTRANSFERASE 51 U/L (15-37); BILIRUBIN,TOTAL 0.5 mg/dL (0.1-1.0); TOTAL PROTEIN, SERUM 7.8 g/dL (6.4-8.2)
[2019-10-10 11:31] LABS: INR 1.2 (0.9-1.1); PROTHROMBIN TIME 11.8 SEC (9.4-11.6)
[2019-10-10 11:32] LABS: LACTIC ACID 1.6 mmol/L (0.4-2.0)
[2019-10-10 11:42] LABS: B-TYPE NATRIURETIC PEPTIDE 83 pg/mL (0-100)
[2019-10-10] MEDS ORDERED: IOVERSOL 350 MG/ML 100 ML VIAL ONE (11:50)
[2019-10-10] MEDS ORDERED: SODIUM CHLORIDE 0.9% 100 ML ONE (11:50)
[2019-10-10 12:07] LABS: INFLUENZA TYPE A NEGATIVE FOR TYPE A (NEGATIVE); INFLUENZA TYPE B NEGATIVE FOR TYPE B (NEGATIVE)
[2019-10-10 12:59] LABS: APPEARANCE,URINE CLEAR (CLEAR); BILIRUBIN,URINE NEGATIVE (NEGATIVE); GLUCOSE, URINE (UA) NEGATIVE (NEGATIVE); KETONES,URINE 15 mg/dL (NEGATIVE); LEUKOCYTE ESTERASE ,URINE NEGATIVE (NEGATIVE); NITRATE,URINE NEGATIVE (NEGATIVE); OCCULT BLOOD,URINE MODERATE (NEGATIVE); PH,URINE 5.5 (5.0-8.0); PROTEIN,URINE NEGATIVE (NEGATIVE); UROBILINOGEN,URINE 0.2 mg/dL (<=1.0)
[2019-10-10 13:20] LABS: BACTERIA,URINE None Seen /HPF (None Seen); RBC,URINE 0-2 /HPF (0-2); SQUAMOUS EPITHELIAL CELL,UR Few /LPF (None Seen); WBC,URINE None Seen /HPF (0-5)
[2019-10-10] MEDS ORDERED: ACETAMINOPHEN 325 MG TABLET PO PRN (14:15)
[2019-10-10] MEDS ORDERED: ONDANSETRON HCL 4 MG/2 ML VIAL IVP PRN ×2 (14:15→16:15)
[2019-10-10] MEDS ORDERED: PHENYLEPHRINE 200 MG/D5%-WATER 250 ML IV PRN ×2 (15:50→16:45)
[2019-10-10 16:00] VITALS: BP 102/73
[2019-10-10] MEDS ORDERED: HYDROCODONE/ACETAMINOPHEN 5-325 MG TABLET PO PRN (16:15)
[2019-10-10] MEDS ORDERED: IPRATROPIUM BROMIDE 0.5 MG/2.5 ML NEB SOLUTION NEB PRN ×2 (16:15)
[2019-10-10] MEDS ORDERED: MAGNESIUM HYDROXIDE SUSPENSION 30 ML UDCUP PO PRN (16:15)
[2019-10-10] MEDS ORDERED: ALBUTEROL SULFATE 2.5 MG/0.5 ML NEB SOLUTION NEB PRN ×2 (16:15)
[2019-10-10] MEDS ORDERED: MORPHINE SULFATE 2 MG/ML SYRINGE IVP PRN (16:15)
[2019-10-10] MEDS ORDERED: BISACODYL 10 MG RECTAL RECTAL SUPPOSITORY PR PRN (16:15)
[2019-10-10] MEDS ORDERED: ZOLPIDEM TARTRATE 5 MG TABLET PO PRN (16:15)
[2019-10-10] MEDS ORDERED: LEVOFLOXACIN 750 MG/D5% WATER 150 ML IV SCH (16:15)
[2019-10-10] MEDS: MethylPREDNISolone SOD SUCC 125 MG/2 ML VIAL IVP SCH (18:52)
[2019-10-10] MEDS: DOCUSATE SODIUM 100 MG CAPSULE PO SCH (20:51)
[2019-10-10] MEDS: GuaiFENesin SR 600 MG ER TABLET PO SCH (20:51)
[2019-10-10] MEDS: BENZONATATE 100 MG CAPSULE PO SCH (20:51)
[2019-10-10] MEDS ORDERED: PNEUMOCOCCAL VACCINE POLYVALENT 0.5 ML VIAL [PPSV23] IM ONE (21:45)
[2019-10-11] MEDS: HEPARIN SODIUM,PORCINE 5,000 UNITS/ML VIAL SQ SCH ×3 (01:44→16:51)
[2019-10-11] MEDS: MethylPREDNISolone SOD SUCC 125 MG/2 ML VIAL IVP SCH ×3 (01:44→21:21)
[2019-10-11] MEDS: ACETAMINOPHEN 325 MG TABLET PO PRN (01:54)
[2019-10-11 04:52] LABS: BASOPHILS % (AUTO) 0.3 % (0.0-2.0); EOSINOPHILS % (AUTO) 0 % (1.0-6.0); LYMPHOCYTES # (AUTO) 0.3 K/uL (1.0-4.8); MEAN CORPUSCULAR HEMOGLOBIN 28.8 pg (26.0-34.0); MEAN CORPUSCULAR HGB CONC 33.3 G/dL (31.0-37.0); MEAN CORPUSCULAR VOLUME 87 fL (80-100); MONOCYTES # (AUTO) 0.2 K/uL (0.1-1.0); MONOCYTES % (AUTO) 1.7 % (2.0-9.0); NEUTROPHILS # (AUTO) 9.2 K/uL (1.8-7.7); PLATELET COUNT (AUTO) 242 K/uL (150-450); RED BLOOD CELL COUNT(AUTO) 4.84 MIL/uL (4.50-5.90); RED CELL DISTRIBUTION WIDTH 15.7 % (11.5-14.5)
[2019-10-11 05:36] LABS: ALANINE AMINOTRANSFERASE 79 U/L (12-78); ALBUMIN 2.5 g/dL (3.4-5.0); ALKALINE PHOSPHATASE 77 U/L (46-116); ANION GAP 11 mmol/L (8-16); ASPARTATE AMINOTRANSFERASE 66 U/L (15-37); BILIRUBIN,TOTAL 0.4 mg/dL (0.1-1.0); CALCIUM, TOTAL 8.2 mg/dL (8.8-10.5); CARBON DIOXIDE 23 mmol/L (22-29); CHLORIDE 106 mmol/L (98-107); CREATININE 0.67 mg/dL (0.60-1.30); GLUCOSE,RANDOM 104 mg/dL (70-110); POTASSIUM 3.1 mmol/L (3.5-5.1); SODIUM SERUM 140 mmol/L (136-145); TOTAL PROTEIN, SERUM 6.8 g/dL (6.4-8.2); UREA NITROGEN, BLOOD 7 mg/dL (7-18)
[2019-10-11 05:47] LABS: GLOMERULAR FILTR. RATE CALC > 60 mL/min (>60)
[2019-10-11] MEDS: ISONIAZID 300 MG TABLET PO SCH (09:11)
[2019-10-11] MEDS: PANTOPRAZOLE SODIUM 40 MG DR TABLET PO SCH (09:11)
[2019-10-11] MEDS: MONTELUKAST SODIUM 10 MG TABLET PO SCH (09:11)
[2019-10-11] MEDS: BENZONATATE 100 MG CAPSULE PO SCH ×3 (09:11→21:20)
[2019-10-11] MEDS: GuaiFENesin SR 600 MG ER TABLET PO SCH ×2 (09:11→21:20)
[2019-10-11] MEDS: DOCUSATE SODIUM 100 MG CAPSULE PO SCH ×2 (09:12→21:20)
[2019-10-11] MEDS: RIFAMPIN 300 MG CAPSULE PO SCH (09:12)
[2019-10-11] MEDS: PYRAZINAMIDE 500 MG TABLET PO SCH (09:12)
[2019-10-11] MEDS ORDERED: POTASSIUM CHLORIDE 20 MEQ ER TABLET PO PRN (10:45)
[2019-10-11] MEDS: POTASSIUM CHL 10 MEQ/WATER 50 ML IV PRN ×3 (11:44→18:51)
[2019-10-11] MEDS ORDERED: SODIUM CHLORIDE 0.9% 250 ML IV ONE (16:48)
[2019-10-11] MEDS: AZITHROMYCIN 250 MG TABLET PO SCH (16:51)
[2019-10-11] MEDS: PIPERACILLIN/TAZO 3.375 GM/D5W 50 ML IV SCH ×2 (16:51→21:20)
[2019-10-11] MEDS: IPRATROPIUM BROMIDE 0.5 MG/2.5 ML NEB SOLUTION NEB SCH (20:43)
[2019-10-11] MEDS: ALBUTEROL SULFATE 2.5 MG/0.5 ML NEB SOLUTION NEB SCH (20:43)
[2019-10-11 23:29] VITALS: BP 91/48
[2019-10-12] MEDS: HEPARIN SODIUM,PORCINE 5,000 UNITS/ML VIAL SQ SCH ×3 (00:17→16:57)
[2019-10-12] MEDS: ACETAMINOPHEN 325 MG TABLET PO PRN (00:18)
[2019-10-12] MEDS: IPRATROPIUM BROMIDE 0.5 MG/2.5 ML NEB SOLUTION NEB SCH ×4 (02:54→20:56)
[2019-10-12] MEDS: ALBUTEROL SULFATE 2.5 MG/0.5 ML NEB SOLUTION NEB SCH ×4 (02:54→20:56)
[2019-10-12] MEDS: PIPERACILLIN/TAZO 3.375 GM/D5W 50 ML IV SCH ×4 (04:32→22:08)
[2019-10-12 05:10] VITALS: BP 86/42
[2019-10-12 06:51] LABS: HEMATOCRIT 37.3 % (41-53); HEMOGLOBIN 12.5 g/dL (13.5-17.5); MEAN CORPUSCULAR HGB CONC 33.5 G/dL (31.0-37.0); MEAN CORPUSCULAR VOLUME 87 fL (80-100); PLATELET COUNT (AUTO) 189 K/uL (150-450); RED BLOOD CELL COUNT(AUTO) 4.31 MIL/uL (4.50-5.90); RED CELL DISTRIBUTION WIDTH 15.9 % (11.5-14.5)
[2019-10-12 07:06] LABS: ANION GAP 8 mmol/L (8-16); CALCIUM, TOTAL 7.5 mg/dL (8.8-10.5); CARBON DIOXIDE 24 mmol/L (22-29); CHLORIDE 107 mmol/L (98-107); CREATININE 0.61 mg/dL (0.60-1.30); GLUCOSE,RANDOM 94 mg/dL (70-110); POTASSIUM 3.3 mmol/L (3.5-5.1); SODIUM SERUM 139 mmol/L (136-145); UREA NITROGEN, BLOOD 10 mg/dL (7-18)
[2019-10-12 07:10] LABS: GLOMERULAR FILTR. RATE CALC > 60 mL/min (>60)
[2019-10-12 07:29] LABS: BAND NEUTROPHILS % (MANUAL) 19 % (0-5); LYMPHOCYTES % (MANUAL) 4 % (22-44); MONOCYTES % (MANUAL) 4 % (2-9); SEGMENTED NEUTROPHILS % 73 % (40-70)
[2019-10-12 07:53] VITALS: BP 90/54
[2019-10-12] MEDS: MethylPREDNISolone SOD SUCC 125 MG/2 ML VIAL IVP SCH ×2 (08:35→21:38)
[2019-10-12] MEDS: ISONIAZID 300 MG TABLET PO SCH (08:36)
[2019-10-12] MEDS: PANTOPRAZOLE SODIUM 40 MG DR TABLET PO SCH (08:36)
[2019-10-12] MEDS: DOCUSATE SODIUM 100 MG CAPSULE PO SCH ×2 (08:36→21:00)
[2019-10-12] MEDS: GuaiFENesin SR 600 MG ER TABLET PO SCH ×2 (08:36→21:00)
[2019-10-12] MEDS: BENZONATATE 100 MG CAPSULE PO SCH ×3 (08:36→21:00)
[2019-10-12] MEDS: PYRAZINAMIDE 500 MG TABLET PO SCH (08:36)
[2019-10-12] MEDS: MONTELUKAST SODIUM 10 MG TABLET PO SCH (08:37)
[2019-10-12] MEDS: PYRIDOXINE HCL 50 MG TABLET PO SCH (08:37)
[2019-10-12] MEDS: RIFAMPIN 300 MG CAPSULE PO SCH (08:37)
[2019-10-12] MEDS: AZITHROMYCIN 250 MG TABLET PO SCH (08:37)
[2019-10-12 11:13] VITALS: BP 95/61
[2019-10-12 15:11] VITALS: BP 96/56
[2019-10-12 20:12] VITALS: BP 91/58
[2019-10-13] VITALS (7 sets, daily range): BP systolic 86–105; BP diastolic 43–59
[2019-10-13] MEDS: ALBUTEROL SULFATE 2.5 MG/0.5 ML NEB SOLUTION NEB SCH ×4 (02:18→19:29)
[2019-10-13] MEDS: IPRATROPIUM BROMIDE 0.5 MG/2.5 ML NEB SOLUTION NEB SCH ×4 (02:18→19:29)
[2019-10-13] MEDS: PIPERACILLIN/TAZO 3.375 GM/D5W 50 ML IV SCH ×4 (04:28→21:10)
[2019-10-13 06:30] LABS: BASOPHILS % (AUTO) 0.1 % (0.0-2.0); EOSINOPHILS % (AUTO) 0 % (1.0-6.0); HEMATOCRIT 37.1 % (41-53); HEMOGLOBIN 12.2 g/dL (13.5-17.5); LYMPHOCYTES # (AUTO) 0.4 K/uL (1.0-4.8); MEAN CORPUSCULAR HEMOGLOBIN 28.4 pg (26.0-34.0); MEAN CORPUSCULAR VOLUME 86 fL (80-100); MONOCYTES # (AUTO) 0.4 K/uL (0.1-1.0); MONOCYTES % (AUTO) 4.7 % (2.0-9.0); NEUTROPHILS # (AUTO) 6.9 K/uL (1.8-7.7); PLATELET COUNT (AUTO) 180 K/uL (150-450); RED BLOOD CELL COUNT(AUTO) 4.31 MIL/uL (4.50-5.90); RED CELL DISTRIBUTION WIDTH 15.4 % (11.5-14.5)
[2019-10-13 06:42] LABS: ANION GAP 8 mmol/L (8-16); CALCIUM, TOTAL 7.5 mg/dL (8.8-10.5); CARBON DIOXIDE 25 mmol/L (22-29); CHLORIDE 104 mmol/L (98-107); CREATININE 0.63 mg/dL (0.60-1.30); GLUCOSE,RANDOM 156 mg/dL (70-110); NEUTROPHILS % (AUTO) 90.2 % (40.0-70.0); POTASSIUM 3.7 mmol/L (3.5-5.1); SODIUM SERUM 137 mmol/L (136-145); UREA NITROGEN, BLOOD 9 mg/dL (7-18)
[2019-10-13 06:53] LABS: GLOMERULAR FILTR. RATE CALC > 60 mL/min (>60)
[2019-10-13] MEDS: HEPARIN SODIUM,PORCINE 5,000 UNITS/ML VIAL SQ SCH ×3 (08:49→16:12)
[2019-10-13] MEDS: ISONIAZID 300 MG TABLET PO SCH (08:51)
[2019-10-13] MEDS: RIFAMPIN 300 MG CAPSULE PO SCH (08:51)
[2019-10-13] MEDS: PYRAZINAMIDE 500 MG TABLET PO SCH (08:52)
[2019-10-13] MEDS: PANTOPRAZOLE SODIUM 40 MG DR TABLET PO SCH (08:53)
[2019-10-13] MEDS: MONTELUKAST SODIUM 10 MG TABLET PO SCH (08:53)
[2019-10-13] MEDS: GuaiFENesin SR 600 MG ER TABLET PO SCH ×2 (08:53→20:16)
[2019-10-13] MEDS: DOCUSATE SODIUM 100 MG CAPSULE PO SCH ×2 (08:54→20:10)
[2019-10-13] MEDS: BENZONATATE 100 MG CAPSULE PO SCH ×3 (08:54→20:11)
[2019-10-13] MEDS: AZITHROMYCIN 250 MG TABLET PO SCH (08:54)
[2019-10-13] MEDS: PYRIDOXINE HCL 50 MG TABLET PO SCH (08:55)
[2019-10-13] MEDS: MethylPREDNISolone SOD SUCC 125 MG/2 ML VIAL IVP SCH (08:59)
[2019-10-13] MEDS ORDERED: SODIUM CHLORIDE 0.9% 1,000 ML IV ONE (10:45)
[2019-10-13] MEDS ORDERED: MethylPREDNISolone SOD SUCC 40 MG/ML VIAL IVP SCH (21:00)
[2019-10-13] MEDS ORDERED: SODIUM CHLORIDE 0.9% 250 ML IV ONE (21:04)
[2019-10-14 00:35] VITALS: BP 92/52
[2019-10-14] MEDS: ALBUTEROL SULFATE 2.5 MG/0.5 ML NEB SOLUTION NEB SCH ×2 (01:25→08:58)
[2019-10-14] MEDS: IPRATROPIUM BROMIDE 0.5 MG/2.5 ML NEB SOLUTION NEB SCH ×2 (01:25→08:58)
[2019-10-14 03:56] VITALS: BP 100/54
[2019-10-14] MEDS: PIPERACILLIN/TAZO 3.375 GM/D5W 50 ML IV SCH ×2 (04:22→09:38)
[2019-10-14 07:45] VITALS: BP 96/52
[2019-10-14] MEDS ORDERED: PredniSONE 10 MG TABLET PO SCH (09:00)
[2019-10-14] MEDS: GuaiFENesin SR 600 MG ER TABLET PO SCH (09:00)
[2019-10-14] MEDS: PYRIDOXINE HCL 50 MG TABLET PO SCH (09:28)
[2019-10-14] MEDS: PYRAZINAMIDE 500 MG TABLET PO SCH (09:28)
[2019-10-14] MEDS: ISONIAZID 300 MG TABLET PO SCH (09:29)
[2019-10-14] MEDS: RIFAMPIN 300 MG CAPSULE PO SCH (09:29)
[2019-10-14] MEDS: PANTOPRAZOLE SODIUM 40 MG DR TABLET PO SCH (09:30)
[2019-10-14] MEDS: DOCUSATE SODIUM 100 MG CAPSULE PO SCH (09:32)
[2019-10-14] MEDS: BENZONATATE 100 MG CAPSULE PO SCH (09:32)
[2019-10-14] MEDS: MONTELUKAST SODIUM 10 MG TABLET PO SCH (09:37)
[2019-10-14] MEDS: AZITHROMYCIN 250 MG TABLET PO SCH (09:39)
[2019-10-14] MEDS: HEPARIN SODIUM,PORCINE 5,000 UNITS/ML VIAL SQ SCH ×2 (09:40)
[2019-10-14] MEDS ORDERED: LEVO-72 PO (10:57)
[2019-10-14] MEDS ORDERED: PRED5 PO (10:58)
[2019-10-14 11:47] VITALS: BP 91/55
[2019-10-14 13:06] LABS: ORGANISM ID Not indicated.; S PNEUMO SOURCE Urine; STREP PNEUMONIAE AG URINE Negative (Negative); STREP.PNEUMO BODY FLUID CULT. Not indicated.
[2019-10-15 10:41] LABS: LEGIONELLA PNEUMO AG URINE Negative (Negative)
== END 2019-10-14 14:25 | disposition home or self-care (01) | DRG 871 ==
LOC: EMS 10:38 → ICU 15:30 → 5N 10-11 23:20
PROVIDERS: ADMIT Internal Medicine; ATTEND Internal Medicine
DX: A41.9 Sepsis, unspecified organism (principal); G93.41 Metabolic encephalopathy; J96.01 Acute respiratory failure with hypoxia; J18.9 Pneumonia, unspecified organism; E43 Unspecified severe protein-calorie malnutrition; R65.21 Severe sepsis with septic shock; J47.0 Bronchiectasis with acute lower respiratory infection; J47.1 Bronchiectasis with (acute) exacerbation; G71.00 Muscular dystrophy, unspecified; H91.90 Unspecified hearing loss, unspecified ear; J34.2 Deviated nasal septum; R62.7 Adult failure to thrive; E87.6 Hypokalemia; Z86.11 Personal history of tuberculosis; Z86.718 Personal history of other venous thrombosis and embolism; Z95.828 Presence of other vascular implants and grafts; Z98.49 Cataract extraction status, unspecified eye; Z68.26 Body mass index [BMI] 26.0-26.9, adult
CPT/HCPCS: 70450; 71250; 74177; 83605; 84132; 84145; 87040; 87070; 87081; 87205; 87449; 87804; 87899; 92610; 93005; 93306; 93970; 94640; 97116; 97162; G0378; J0131; J1644; J1956; J2405; J2543; J2920; J2930; J3370; J3480; J7030; J7050

== ENCOUNTER 2020-02-16 06:31 | Day surgery (SDC) | payer OTHER ==
[~2020-02-16] VITALS: Ht 165.1 cm; Wt 63.6 kg
[~2020-02-16 06:31] MED LIST changes: -CEFT2VIA IV; -DIPH25 PO; -DULO30CA2 PO; +FLUT16H NASAL; +GABA-1181 PO; -GABA-531 PO; -ISON300T17 PO; -OMEP20 PO; -PYRA500 PO; -RIFA300C4 PO; +SODIUM CHLORIDE 0.9% 1,000 ML IV ONE; +SODIUM CHLORIDE 0.9% 1,000 ML ONE; -VIT1TABL76 PO
[2020-02-16] MEDS ORDERED: MIDAZOLAM HCL 2 MG/2 ML VIAL ONE (08:15)
[2020-02-16] MEDS ORDERED: FentaNYL CITRATE-PF 100 MCG/2 ML VIAL ONE (08:15)
[2020-02-16] MEDS ORDERED: MethylPREDNISolone SOD SUCC 125 MG/2 ML VIAL IVP ONE (09:15)
[2020-02-16] MEDS ORDERED: MethylPREDNISolone SOD SUCC 125 MG/2 ML VIAL ONE (09:35)
[2020-02-16] MEDS ORDERED: ALBUTEROL SULFATE 2.5 MG/0.5 ML NEB SOLUTION NEB ONE (17:33)
[2020-02-16] MEDS ORDERED: LIDOCAINE 2% 30 ML JELLY ONE (17:33)
[2020-02-16] MEDS ORDERED: LIDOCAINE 4% 50 ML SOLUTION ONE (17:33)
[2020-02-16] MEDS ORDERED: BENZOCAINE 20% 50 MCG/SPRAY 57 GM ONE (17:33)
[2020-02-16] MEDS ORDERED: OXYGEN THERAPY IH SCH (20:00)
== END 2020-02-16 11:05 | disposition home or self-care (01) ==
LOC: SURGERY 06:31
PROVIDERS: ATTEND Internal Medicine Critical Care Medicine
DX: B37.0 Candidal stomatitis (principal); J38.4 Edema of larynx; Z11.59 Encounter for screening for other viral diseases
CPT/HCPCS: 31623; 31624; 71045; 87015; 87070; 87101; 87205; 87206; 87220; 87635; 88108; 88312; J2250; J2930; J3010; J7030

== ENCOUNTER → 2020-07-28 | Day surgery (SDC) | payer OTHER ==
[2020-07-27 08:26] LABS: COVID AG,FIA SOURCE NASOPHARYNGEAL
[~2020-07-28] VITALS: Ht 165.1 cm; Wt 59.1 kg
[~2020-07-28] MED LIST changes: +ALBUTEROL SULFATE 2.5 MG/0.5 ML NEB SOLUTION NEB ONE; +BENZOCAINE 20% 50 MCG/SPRAY 57 GM TP ONE; +FentaNYL CITRATE-PF 100 MCG/2 ML VIAL ONE; +LIDOCAINE 2% 30 ML JELLY TP ONE; +LIDOCAINE 4% 50 ML SOLUTION TP ONE; +MIDAZOLAM HCL 2 MG/2 ML VIAL ONE; +MONT-35 PO; -MONT10TA21 PO; +MethylPREDNISolone SOD SUCC 125 MG/2 ML VIAL IVP ONE; +MethylPREDNISolone SOD SUCC 125 MG/2 ML VIAL ONE; +OXYGEN THERAPY IH SCH; -SODIUM CHLORIDE 0.9% 1,000 ML ONE
== END | disposition home or self-care (01) ==
LOC: SURGERY 06:28
PROVIDERS: ATTEND Internal Medicine Critical Care Medicine
DX: J38.4 Edema of larynx (principal); B37.0 Candidal stomatitis; Z20.828 Contact with and (suspected) exposure to other viral communicable diseases
CPT/HCPCS: 31623; 31624; 71045; 87015; 87101; 87206; 87220; 87426; 88184; 88185; 93005; C9803; J2250; J2930; J3010; 87070; 88108; 88312; J7613; Z7610

== ENCOUNTER 2020-10-10 14:17 | Emergency (ER) | payer OTHER ==
[~2020-10-10] VITALS: Ht 172.7 cm; Wt 65.9 kg
[~2020-10-10 14:17] MED LIST changes: -ALBUTEROL SULFATE 2.5 MG/0.5 ML NEB SOLUTION NEB ONE; -BENZOCAINE 20% 50 MCG/SPRAY 57 GM TP ONE; -FentaNYL CITRATE-PF 100 MCG/2 ML VIAL ONE; -LIDOCAINE 2% 30 ML JELLY TP ONE; -LIDOCAINE 4% 50 ML SOLUTION TP ONE; -MIDAZOLAM HCL 2 MG/2 ML VIAL ONE; -MethylPREDNISolone SOD SUCC 125 MG/2 ML VIAL IVP ONE; -MethylPREDNISolone SOD SUCC 125 MG/2 ML VIAL ONE; -OXYGEN THERAPY IH SCH; -SODIUM CHLORIDE 0.9% 1,000 ML IV ONE
[2020-10-10 16:20] VITALS: BP 89/59
[2020-10-10 16:53] LABS: COVID AG,FIA SOURCE NASOPHARYNGEAL
[2020-10-10] MEDS ORDERED: 0.9% SODIUM CHLORIDE 10 ML SYRINGE IVP PRN (17:00)
== END 2020-10-10 17:50 | disposition left against medical advice (07) ==
LOC: EMS 14:25
DX: K94.23 Gastrostomy malfunction (principal); J45.909 Unspecified asthma, uncomplicated; Z20.822 Contact with and (suspected) exposure to COVID-19
CPT/HCPCS: 87426; 99283

== ENCOUNTER 2021-02-28 06:46 | Day surgery (SDC) | payer OTHER ==
[2021-02-26 13:22] LABS: COVID AG,FIA SOURCE NASOPHARYNGEAL
[~2021-02-28] VITALS: Ht 167.6 cm; Wt 65.9 kg
[~2021-02-28 06:46] MED LIST changes: -ADV500 IH; +DOXY100C2 PO; -FLUT16H NASAL; +OMEP20CA12 PO; +PRED20 PO; +SODIUM CHLORIDE 0.9% 1,000 ML IV ONE
[2021-02-28] MEDS ORDERED: SODIUM CHLORIDE 0.9% 1,000 ML ONE (07:07)
[2021-02-28] MEDS ORDERED: MIDAZOLAM HCL 2 MG/2 ML VIAL ONE (07:39)
[2021-02-28] MEDS ORDERED: FentaNYL CITRATE PF 100 MCG/2 ML VIAL ONE (07:39)
[2021-02-28] MEDS ORDERED: MethylPREDNISolone SOD SUCC 125 MG/2 ML VIAL IVP ONE (09:00)
[2021-02-28] MEDS ORDERED: LIDOCAINE 4% 50 ML SOLUTION ONE (17:45)
[2021-02-28] MEDS ORDERED: LIDOCAINE 2% 30 ML JELLY ONE (17:45)
[2021-02-28] MEDS ORDERED: ALBUTEROL SULFATE 2.5 MG/0.5 ML NEB SOLUTION NEB ONE (17:45)
[2021-02-28] MEDS ORDERED: BENZOCAINE 20% 50 MCG/SPRAY 57 GM ONE (17:45)
[2021-02-28] MEDS ORDERED: OXYGEN THERAPY IH SCH (20:00)
== END 2021-02-28 10:50 | disposition home or self-care (01) ==
LOC: SURGERY 06:46
PROVIDERS: ATTEND Internal Medicine Critical Care Medicine
DX: J38.4 Edema of larynx (principal); B37.0 Candidal stomatitis; J39.8 Other specified diseases of upper respiratory tract; Z98.890 Other specified postprocedural states
CPT/HCPCS: 31623; 31624; 71045; 87015; 87070; 87077; 87101; 87186; 87206; 87220; 87426; 88108; 88184; 88185; 88312; C9803; J2250; J3010; J7030; J7613; Z7610

== ENCOUNTER 2021-03-25 23:18 | Inpatient (IN) | payer OTHER ==
[~2021-03-25] VITALS: Ht 172.7 cm; Wt 133.0 kg
[~2021-03-25 23:18] MED LIST changes: -DOXY100C2 PO; +DOXY100C5 PO; -SODIUM CHLORIDE 0.9% 1,000 ML IV ONE
[2021-03-25] MEDS ORDERED: FURO40 PO (23:50)
[2021-03-26] LABS: COVID AG,FIA SOURCE NASOPHARYNGEAL
[2021-03-26] MEDS ORDERED: 0.9% SODIUM CHLORIDE 10 ML SYRINGE IVP PRN
[2021-03-26] MEDS ORDERED: PIPERACILLIN/TAZO 3.375 GM/D5W 50 ML IV SCH
[2021-03-26] MEDS ORDERED: SODIUM CHLORIDE 0.9% 1,950 ML IV ONE
[2021-03-26 00:10] LABS: APPEARANCE,URINE CLEAR (CLEAR); BILIRUBIN,URINE NEGATIVE (NEGATIVE); GLUCOSE, URINE (UA) >=1000 mg/dL (NEGATIVE); KETONES,URINE 15 mg/dL (NEGATIVE); LEUKOCYTE ESTERASE ,URINE NEGATIVE (NEGATIVE); NITRATE,URINE NEGATIVE (NEGATIVE); OCCULT BLOOD,URINE NEGATIVE (NEGATIVE); PROTEIN,URINE NEGATIVE (NEGATIVE); UROBILINOGEN,URINE 0.2 mg/dL (<=1.0)
[2021-03-26] MEDS ORDERED: ACETAMINOPHEN 650 MG/ISO-OSM 65 ML IV ONE (00:15)
[2021-03-26 00:18] LABS: BASOPHILS % (AUTO) 0.1 % (0.0-2.0); EOSINOPHILS % (AUTO) 0 % (1.0-6.0); HEMOGLOBIN 17.7 g/dL (13.5-17.5); LYMPHOCYTES # (AUTO) 0.2 K/uL (1.0-4.8); LYMPHOCYTES % (AUTO) 2.3 % (22.0-44.0); MEAN CORPUSCULAR HGB CONC 30.9 G/dL (31.0-37.0); MEAN CORPUSCULAR VOLUME 94 fL (80-100); MONOCYTES # (AUTO) 0.1 K/uL (0.1-1.0); MONOCYTES % (AUTO) 1.7 % (2.0-9.0); NEUTROPHILS # (AUTO) 7.7 K/uL (1.8-7.7); PLATELET COUNT (AUTO) 204 K/uL (150-450); RED CELL DISTRIBUTION WIDTH 18.9 % (11.5-14.5)
[2021-03-26 00:20] LABS: INR 1.2 (0.9-1.1); PROTHROMBIN TIME 12.3 SEC (9.4-11.6)
[2021-03-26 00:21] LABS: HEMATOCRIT 57.4 % (41-53); NEUTROPHILS % (AUTO) 95.9 % (40.0-70.0)
[2021-03-26 00:22] LABS: AMPHET/METH SCREEN,URINE NEGATIVE (NEGATIVE); ANION GAP 13 mmol/L (8-16); BARBITURATE SCREEN, URINE NEGATIVE (NEGATIVE); BENZODIAZEPINES SCREEN,URINE NEGATIVE (NEGATIVE); CALCIUM, TOTAL 9.7 mg/dL (8.8-10.5); CANNABINOID SCREEN,URINE NEGATIVE (NEGATIVE); CARBON DIOXIDE 29 mmol/L (22-29); CHLORIDE 109 mmol/L (98-107); COCAINE SCREEN,URINE NEGATIVE (NEGATIVE); CREATININE 1.69 mg/dL (0.60-1.30); GLOMERULAR FILTR. RATE CALC 40 mL/min (>60); METHADONE SCREEN, URINE NEGATIVE (NEGATIVE); OPIATE SCREEN,URINE NEGATIVE (NEGATIVE); POTASSIUM 4.9 mmol/L (3.5-5.1); SODIUM SERUM 151 mmol/L (136-145); UREA NITROGEN, BLOOD 63 mg/dL (7-18)
[2021-03-26 00:23] LABS: PHENCYCLIDINE SCREEN,URINE NEGATIVE (NEGATIVE)
[2021-03-26 00:28] LABS: SALICYLATE 0.8 mg/dL (2.8-20.0); TROPONIN I < 0.02 ng/mL (0.00-0.05)
[2021-03-26 00:29] LABS: AMMONIA < 10 umol/L (11-32)
[2021-03-26 00:34] LABS: BACTERIA,URINE None Seen /HPF (None Seen); RBC,URINE 0-2 /HPF (0-2); WBC,URINE None Seen /HPF (0-5)
[2021-03-26 00:44] LABS: ALANINE AMINOTRANSFERASE 37 U/L (12-78); ALKALINE PHOSPHATASE 145 U/L (46-116); ASPARTATE AMINOTRANSFERASE 13 U/L (15-37); B-TYPE NATRIURETIC PEPTIDE 106 pg/mL (0-100); BILIRUBIN,TOTAL 1.6 mg/dL (0.1-1.0); CREATINE KINASE, TOTAL ONLY 250 U/L (39-308); LACTATE DEHYDROGENASE 117 U/L (85-227); LIPASE 56 U/L (73-393)
[2021-03-26 00:46] LABS: ACETAMINOPHEN < 2 mcg/mL (10-30)
[2021-03-26 00:59] LABS: LACTIC ACID 3.7 mmol/L (0.4-2.0)
[2021-03-26] MEDS ORDERED: INSULIN REGULAR, HUMAN 100 UNITS/ML IVP ONE (01:00)
[2021-03-26] MEDS ORDERED: VANCOMYCIN HCL 1.25 GM in DEXTROSE 5%-WATER 250 ML IV ONE (01:00)
[2021-03-26 01:09] LABS: ABG A-A DIFF O2 500.1 mmHg (10-20.0); ABG BASE EXCESS -0.3 mmol/L (-2.0-3.0); ABG CARBOXYHEMOGLOBIN 0.1 % (0.0-1.5); ABG HCO3 23.8 mmol/L (22.0-26.0); ABG METHEMOGLOBIN 0.4 % (0.0-1.5); ABG OXYGEN SATURATION 98.7 % (95.0-98.0); ABG OXYHEMOGLOBIN 98.2 % (94.0-100.0); ABG PCO2 48 mmHg (35-45); ABG PH 7.339 (7.35-7.450); ABG TOTAL HEMOGLOBIN 16.5 G/dL (12.0-18.0); PO2, ARTERIAL BG 162.4 mmHg (75.0-83.0); SITE, BLOOD GAS RT RADIAL; SOURCE, BLOOD GAS ARTERIAL
[2021-03-26 01:10] LABS: O2 DEVICE,BLOOD GAS NON REBREATHER (ROOM AIR)
[2021-03-26] MEDS ORDERED: LORazepam 2 MG/ML VIAL IVP ONE (01:45)
[2021-03-26 02:18] LABS: GLUCOMETER DEV NAME(LOC) ERT.5; GLUCOSE,POINT OF CARE 449 MG/DL (70-110)
[2021-03-26 02:41] LABS: ALBUMIN 2.3 g/dL (3.4-5.0); CALCIUM, TOTAL 8.1 mg/dL (8.8-10.5); CREATININE 1.47 mg/dL (0.60-1.30); POTASSIUM 3.3 mmol/L (3.5-5.1); TOTAL PROTEIN, SERUM 6.4 g/dL (6.4-8.2)
[2021-03-26] MEDS ORDERED: SODIUM CHLORIDE 0.9% 1,000 ML IV ONE (02:45)
[2021-03-26 03:18] LABS: LACTIC ACID 6.7 mmol/L (0.4-2.0)
[2021-03-26 03:27] VITALS: BP 91/61
[2021-03-26] MEDS ORDERED: SODIUM CHLORIDE 0.9% 250 ML IV ONE ×2 (05:59→12:34)
[2021-03-26] MEDS ORDERED: PIPERACILLIN SODIUM/TAZOBACTAM 2.25 GM in DEXTROSE 5%-WATER 50 ML IV ONE (06:00)
[2021-03-26 07:59] VITALS: BP 106/69
[2021-03-26 08:27] VITALS: BP 97/57
[2021-03-26] MEDS ORDERED: ETOMIDATE 2 MG/ML 10 ML VIAL ONE (09:40)
[2021-03-26] MEDS ORDERED: MIDAZOLAM HCL 5 MG/ML VIAL ONE (09:40)
[2021-03-26] MEDS ORDERED: SUCCINYLCHOLINE CHLORIDE 20 MG/ML 10 ML VIAL ONE (09:41)
[2021-03-26] MEDS ORDERED: PHENYLEPHRINE HCL IN 0.9% NACL 400 MCG/10 ML SYRINGE IVP ONE (09:45)
[2021-03-26] MEDS: RINGERS SOLUTION,LACTATED 1,000 ML IV SCH ×2 (10:20→17:54)
[2021-03-26] MEDS: PROPOFOL 1000 MG/ISO-OSM 100 ML IV PRN ×2 (10:21→14:18)
[2021-03-26] MEDS: VASOPRESSIN 40 UNITS in DEXTROSE 5%-WATER 98 ML IV PRN ×2 (10:40→22:35)
[2021-03-26] MEDS: PHENYLEPHRINE 200 MG/D5%-WATER 250 ML IV PRN ×2 (10:41→22:34)
[2021-03-26] MEDS ORDERED: BUDE10.2 IH (10:52)
[2021-03-26] MEDS ORDERED: FLUT16H NASAL (10:52)
[2021-03-26] MEDS ORDERED: TRAZ-252 PO (10:52)
[2021-03-26] MEDS ORDERED: IPRA3AMP24 NEB (10:52)
[2021-03-26 11:14] LABS: ABG BASE EXCESS -2.1 mmol/L (-2.0-3.0); ABG CARBOXYHEMOGLOBIN 0.4 % (0.0-1.5); ABG HCO3 21.9 mmol/L (22.0-26.0); ABG OXYGEN CONTENT 21.3 mL/dL (15.0-23.0); ABG OXYGEN SATURATION 89.6 % (95.0-98.0); ABG OXYHEMOGLOBIN 89.2 % (94.0-100.0); ABG PCO2 55 mmHg (35-45); ABG PH 7.271 (7.35-7.450); O2 DEVICE,BLOOD GAS VENTILATOR (ROOM AIR); PO2, ARTERIAL BG 63.2 mmHg (75.0-83.0); SITE, BLOOD GAS LFT BRACHIAL; SOURCE, BLOOD GAS ARTERIAL; TEMPERATURE, FAHRENHEIT, BG 100.9 FAHREN (96.0-98.6); VT, ABG 430 ml
[2021-03-26 11:15] LABS: PEEP,BG 8 cm H2O; SPONTANEOUS VT, BG 428 ml
[2021-03-26] MEDS: FentaNYL CIT 1000MCG/0.9% NACL 100 ML IV PRN (11:48)
[2021-03-26 12:00] VITALS: BP 79/58
[2021-03-26] MEDS: NOREPINEPHRINE BITARTRATE 16 MG in DEXTROSE 5%-WATER 234 ML IV PRN (12:14)
[2021-03-26] MEDS ORDERED: SODIUM CHLORIDE 0.9% 500 ML IV ONE (12:40)
[2021-03-26] MEDS ORDERED: HEPARIN SODIUM,PORCINE 1,000 UNITS/ML VIAL ONE (14:18)
[2021-03-26] MEDS: HYDROCORTISONE SOD SUCC 100 MG/2 ML VIAL IVP SCH ×2 (14:40→17:55)
[2021-03-26] MEDS: ALBUMIN HUMAN 25%-25GM/100ML 100 ML IV SCH ×2 (15:14→22:35)
[2021-03-26] MEDS: ACETAMINOPHEN 650 MG/20.3 ML SOLUTION UDCUP PEG PRN (15:15)
[2021-03-26] MEDS ORDERED: ZOLPIDEM TARTRATE 5 MG TABLET PO PRN (15:45)
[2021-03-26] MEDS ORDERED: ACETAMINOPHEN 325 MG TABLET PO PRN (15:45)
[2021-03-26] MEDS ORDERED: HYDROCODONE/ACETAMINOPHEN 5-325 MG TABLET PO PRN (15:45)
[2021-03-26] MEDS ORDERED: MAGNESIUM HYDROXIDE SUSPENSION 30 ML UDCUP PO PRN (15:45)
[2021-03-26] MEDS ORDERED: BISACODYL 10 MG RECTAL RECTAL SUPPOSITORY PR PRN (15:45)
[2021-03-26] MEDS ORDERED: ONDANSETRON HCL 4 MG/2 ML VIAL IVP PRN (15:45)
[2021-03-26 16:00] VITALS: BP 123/47
[2021-03-26 16:15] LABS: ABG A-A DIFF O2 570.7 mmHg (10-20.0); ABG BASE EXCESS -3.7 mmol/L (-2.0-3.0); ABG CARBOXYHEMOGLOBIN 0.4 % (0.0-1.5); ABG HCO3 20.6 mmol/L (22.0-26.0); ABG METHEMOGLOBIN 0.1 % (0.0-1.5); ABG OXYGEN CONTENT 21.8 mL/dL (15.0-23.0); ABG OXYHEMOGLOBIN 94.5 % (94.0-100.0); ABG PCO2 58 mmHg (35-45); ABG TOTAL HEMOGLOBIN 16.4 G/dL (12.0-18.0); PO2, ARTERIAL BG 81.5 mmHg (75.0-83.0); SOURCE, BLOOD GAS ARTERIAL; TEMPERATURE, FAHRENHEIT, BG 100.2 FAHREN (96.0-98.6)
[2021-03-26 16:16] LABS: SITE, BLOOD GAS ARTERIAL LINE
[2021-03-26 16:17] LABS: O2 DEVICE,BLOOD GAS VENTILATOR (ROOM AIR); PEEP,BG 8 cm H2O; SPONTANEOUS VT, BG 525 ml; VT, ABG 430 ml
[2021-03-26] MEDS: HEPARIN SODIUM,PORCINE 5,000 UNITS/ML VIAL SQ SCH (16:46)
[2021-03-26] MEDS: PIPERACILLIN/TAZO 3.375 GM/D5W 50 ML IV SCH ×2 (16:46→21:36)
[2021-03-26] MEDS ORDERED: MAGNESIUM HYDROXIDE SUSPENSION 30 ML UDCUP GT PRN (19:15)
[2021-03-26 20:00] VITALS: BP 119/51
[2021-03-26 20:39] LABS: GLUCOMETER DEV NAME(LOC) 5S.2B; GLUCOSE,POINT OF CARE 386 MG/DL (70-110)
[2021-03-26] MEDS ORDERED: DOCUSATE SODIUM 100 MG CAPSULE PO SCH (21:00)
[2021-03-27] VITALS: BP 125/54
[2021-03-27] MEDS: HYDROCORTISONE SOD SUCC 100 MG/2 ML VIAL IVP SCH ×4 (00:27→19:32)
[2021-03-27] MEDS: HEPARIN SODIUM,PORCINE 5,000 UNITS/ML VIAL SQ SCH ×3 (00:27→17:01)
[2021-03-27] MEDS: NOREPINEPHRINE BITARTRATE 16 MG in DEXTROSE 5%-WATER 234 ML IV PRN ×2 (00:28→17:06)
[2021-03-27] MEDS: FentaNYL CIT 1000MCG/0.9% NACL 100 ML IV PRN ×2 (00:28→21:51)
[2021-03-27] MEDS: RINGERS SOLUTION,LACTATED 1,000 ML IV SCH ×3 (02:36→19:32)
[2021-03-27 04:00] VITALS: BP 118/59
[2021-03-27] MEDS: PIPERACILLIN/TAZO 3.375 GM/D5W 50 ML IV SCH ×4 (04:06→21:50)
[2021-03-27 05:40] LABS: CALCIUM, TOTAL 7.5 mg/dL (8.8-10.5); CREATININE 1.42 mg/dL (0.60-1.30); POTASSIUM 3.4 mmol/L (3.5-5.1)
[2021-03-27 05:42] LABS: HEMATOCRIT 41.2 % (41-53); MEAN CORPUSCULAR HEMOGLOBIN 28.6 pg (26.0-34.0); MEAN CORPUSCULAR HGB CONC 31.4 G/dL (31.0-37.0); MEAN CORPUSCULAR VOLUME 91 fL (80-100); RED BLOOD CELL COUNT(AUTO) 4.52 MIL/uL (4.50-5.90); RED CELL DISTRIBUTION WIDTH 17.7 % (11.5-14.5)
[2021-03-27] MEDS: PROPOFOL 1000 MG/ISO-OSM 100 ML IV PRN ×2 (05:53→17:00)
[2021-03-27] MEDS: ALBUMIN HUMAN 25%-25GM/100ML 100 ML IV SCH ×3 (06:25→22:22)
[2021-03-27 06:35] LABS: GLUCOSE,POINT OF CARE 375 MG/DL (70-110)
[2021-03-27 07:28] LABS: HEMOGLOBIN 12.9 g/dL (13.5-17.5)
[2021-03-27 07:35] LABS: PLATELET COUNT (AUTO) 98 K/uL (150-450)
[2021-03-27 07:37] LABS: PLATELET MORPHOLOGY COMMENT LARGE PLTS PRESENT
[2021-03-27 08:00] VITALS: BP 112/55
[2021-03-27 08:18] LABS: SEGMENTED NEUTROPHILS % 39 % (40-70)
[2021-03-27 08:19] LABS: BAND NEUTROPHILS % (MANUAL) 26 % (0-5); LYMPHOCYTES % (MANUAL) 20 % (22-44); METAMYELOCYTES % 3 % (0-0); MONOCYTES % (MANUAL) 10 % (2-9); MYELOCYTES % 2 % (0-0)
[2021-03-27 08:22] LABS: ABG BASE EXCESS -2.4 mmol/L (-2.0-3.0); ABG CARBOXYHEMOGLOBIN 0.3 % (0.0-1.5); ABG HCO3 22.5 mmol/L (22.0-26.0); ABG METHEMOGLOBIN 0.3 % (0.0-1.5); ABG OXYGEN CONTENT 15.2 mL/dL (15.0-23.0); ABG OXYHEMOGLOBIN 97.4 % (94.0-100.0); ABG PCO2 45 mmHg (35-45); ABG PH 7.332 (7.35-7.450); O2 DEVICE,BLOOD GAS VENTILATOR (ROOM AIR); PEEP,BG 8 cm H2O; PO2, ARTERIAL BG 104.8 mmHg (75.0-83.0); SITE, BLOOD GAS ARTERIAL LINE; SOURCE, BLOOD GAS ARTERIAL; TEMPERATURE, FAHRENHEIT, BG 99.8 FAHREN (96.0-98.6); VT, ABG 430 ml
[2021-03-27] MEDS: PANTOPRAZOLE SODIUM 40 MG/VIAL IVP SCH (08:39)
[2021-03-27 11:57] LABS: ALBUMIN 2.4 g/dL (3.4-5.0); TOTAL PROTEIN, SERUM 5.4 g/dL (6.4-8.2)
[2021-03-27 12:00] VITALS: BP 112/55
[2021-03-27] MEDS: ACETAMINOPHEN 650 MG/20.3 ML SOLUTION UDCUP PEG PRN ×2 (13:27→19:31)
[2021-03-27 16:00] VITALS: BP 112/55
[2021-03-27] MEDS: VASOPRESSIN 40 UNITS in DEXTROSE 5%-WATER 98 ML IV PRN (17:04)
[2021-03-27 20:01] VITALS: BP 120/41
[2021-03-27 20:17] LABS: GLUCOSE,POINT OF CARE 189 MG/DL (70-110)
[2021-03-28] VITALS: BP 115/58
[2021-03-28] MEDS: HYDROCORTISONE SOD SUCC 100 MG/2 ML VIAL IVP SCH ×4 (00:14→18:54)
[2021-03-28] MEDS: HEPARIN SODIUM,PORCINE 5,000 UNITS/ML VIAL SQ SCH ×3 (00:14→16:16)
[2021-03-28] MEDS: PIPERACILLIN/TAZO 3.375 GM/D5W 50 ML IV SCH ×4 (03:49→22:02)
[2021-03-28 04:00] VITALS: BP 114/60
[2021-03-28] MEDS: RINGERS SOLUTION,LACTATED 1,000 ML IV SCH ×3 (04:01→22:03)
[2021-03-28] MEDS: PROPOFOL 1000 MG/ISO-OSM 100 ML IV PRN (04:02)
[2021-03-28 05:11] LABS: HEMATOCRIT 35.6 % (41-53); HEMOGLOBIN 11.5 g/dL (13.5-17.5); MEAN CORPUSCULAR HEMOGLOBIN 28.5 pg (26.0-34.0); MEAN CORPUSCULAR HGB CONC 32.3 G/dL (31.0-37.0); MEAN CORPUSCULAR VOLUME 88 fL (80-100); PLATELET COUNT (AUTO) 66 K/uL (150-450); RED BLOOD CELL COUNT(AUTO) 4.03 MIL/uL (4.50-5.90); RED CELL DISTRIBUTION WIDTH 17.2 % (11.5-14.5)
[2021-03-28 05:24] LABS: ALANINE AMINOTRANSFERASE 25 U/L (12-78); ALBUMIN 2.9 g/dL (3.4-5.0); ALKALINE PHOSPHATASE 83 U/L (46-116); ANION GAP 11 mmol/L (8-16); ASPARTATE AMINOTRANSFERASE 21 U/L (15-37); BILIRUBIN,TOTAL 1.6 mg/dL (0.1-1.0); CALCIUM, TOTAL 7.7 mg/dL (8.8-10.5); CARBON DIOXIDE 26 mmol/L (22-29); CHLORIDE 112 mmol/L (98-107); CREATININE 1.16 mg/dL (0.60-1.30); GLUCOSE,RANDOM 236 mg/dL (70-110); POTASSIUM 3.4 mmol/L (3.5-5.1); SODIUM SERUM 149 mmol/L (136-145); TOTAL PROTEIN, SERUM 5.5 g/dL (6.4-8.2); UREA NITROGEN, BLOOD 46 mg/dL (7-18)
[2021-03-28 05:28] LABS: GLOMERULAR FILTR. RATE CALC > 60 mL/min (>60)
[2021-03-28 05:57] LABS: BAND NEUTROPHILS % (MANUAL) 15 % (0-5); LYMPHOCYTES % (MANUAL) 4 % (22-44); METAMYELOCYTES % 10 % (0-0); MONOCYTES % (MANUAL) 5 % (2-9)
[2021-03-28 06:08] LABS: SEGMENTED NEUTROPHILS % 66 % (40-70)
[2021-03-28] MEDS: ALBUMIN HUMAN 25%-25GM/100ML 100 ML IV SCH ×3 (06:56→22:04)
[2021-03-28 08:00] VITALS: BP 126/68
[2021-03-28] MEDS: PANTOPRAZOLE SODIUM 40 MG/VIAL IVP SCH (08:36)
[2021-03-28] MEDS: VASOPRESSIN 40 UNITS in DEXTROSE 5%-WATER 98 ML IV PRN (11:47)
[2021-03-28 12:00] VITALS: BP 102/59
[2021-03-28] MEDS ORDERED: SODIUM CHLORIDE 0.9% 250 ML IV ONE ×2 (14:19→21:49)
[2021-03-28 16:00] VITALS: BP 117/64
[2021-03-28 20:00] VITALS: BP 99/55
[2021-03-28] MEDS: NOREPINEPHRINE BITARTRATE 16 MG in DEXTROSE 5%-WATER 234 ML IV PRN (22:06)
[2021-03-29] VITALS: BP 131/71
[2021-03-29] MEDS ORDERED: SODIUM CHLORIDE 0.9% 500 ML IV ONE
[2021-03-29] MEDS: PROPOFOL 1000 MG/ISO-OSM 100 ML IV PRN ×2 (00:03→16:20)
[2021-03-29] MEDS: HYDROCORTISONE SOD SUCC 100 MG/2 ML VIAL IVP SCH ×5 (00:04→23:11)
[2021-03-29] MEDS: FentaNYL CIT 1000MCG/0.9% NACL 100 ML IV PRN (03:06)
[2021-03-29] MEDS: PIPERACILLIN/TAZO 3.375 GM/D5W 50 ML IV SCH ×4 (03:10→21:17)
[2021-03-29 04:00] VITALS: BP 101/60
[2021-03-29] MEDS: VASOPRESSIN 40 UNITS in DEXTROSE 5%-WATER 98 ML IV PRN (05:41)
[2021-03-29] MEDS: ALBUMIN HUMAN 25%-25GM/100ML 100 ML IV SCH ×3 (06:14→23:11)
[2021-03-29 06:20] LABS: INR 1.2 (0.9-1.1); PROTHROMBIN TIME 12.5 SEC (9.4-11.6)
[2021-03-29 06:45] LABS: ALANINE AMINOTRANSFERASE 31 U/L (12-78); ALBUMIN 3.1 g/dL (3.4-5.0); ALKALINE PHOSPHATASE 154 U/L (46-116); ANION GAP 19 mmol/L (8-16); ASPARTATE AMINOTRANSFERASE 26 U/L (15-37); BILIRUBIN,TOTAL 2.2 mg/dL (0.1-1.0); CALCIUM, TOTAL 7.5 mg/dL (8.8-10.5); CARBON DIOXIDE 19 mmol/L (22-29); CHLORIDE 108 mmol/L (98-107); CREATININE 0.98 mg/dL (0.60-1.30); GLUCOSE,RANDOM 353 mg/dL (70-110); POTASSIUM 3.2 mmol/L (3.5-5.1); SODIUM SERUM 146 mmol/L (136-145); TOTAL PROTEIN, SERUM 5.2 g/dL (6.4-8.2); UREA NITROGEN, BLOOD 48 mg/dL (7-18)
[2021-03-29 06:51] LABS: GLOMERULAR FILTR. RATE CALC > 60 mL/min (>60)
[2021-03-29 08:00] VITALS: BP 111/63
[2021-03-29] MEDS: HEPARIN SODIUM,PORCINE 5,000 UNITS/ML VIAL SQ SCH ×3 (08:00→16:00)
[2021-03-29 08:06] LABS: HEMATOCRIT 34.3 % (41-53); HEMOGLOBIN 10.9 g/dL (13.5-17.5); MEAN CORPUSCULAR HEMOGLOBIN 28.5 pg (26.0-34.0); MEAN CORPUSCULAR HGB CONC 31.8 G/dL (31.0-37.0); MEAN CORPUSCULAR VOLUME 90 fL (80-100); PLATELET COUNT (AUTO) 51 K/uL (150-450); RED BLOOD CELL COUNT(AUTO) 3.83 MIL/uL (4.50-5.90); RED CELL DISTRIBUTION WIDTH 17.8 % (11.5-14.5)
[2021-03-29 08:11] LABS: BAND NEUTROPHILS % (MANUAL) 18 % (0-5); LYMPHOCYTES % (MANUAL) 1 % (22-44); MONOCYTES % (MANUAL) 1 % (2-9); MYELOCYTES % 1 % (0-0); SEGMENTED NEUTROPHILS % 79 % (40-70)
[2021-03-29] MEDS: PANTOPRAZOLE SODIUM 40 MG/VIAL IVP SCH (08:56)
[2021-03-29] MEDS: RINGERS SOLUTION,LACTATED 1,000 ML IV SCH (08:57)
[2021-03-29] MEDS: HEPARIN SODIUM,PORCINE 1,000 UNITS/ML VIAL IVP PRN ×2 (08:58→08:59)
[2021-03-29] MEDS ORDERED: POTASSIUM CHLORIDE 20 MEQ ER TABLET PO PRN (11:15)
[2021-03-29] MEDS: POTASSIUM CHL 10 MEQ/WATER 50 ML IV PRN ×3 (11:24→13:33)
[2021-03-29 12:00] VITALS: BP 101/57
[2021-03-29 16:00] VITALS: BP 112/62
[2021-03-29] MEDS ORDERED: DEXTROSE 50%-WATER 25 GM/50 ML SYRINGE IVP PRN (17:00)
[2021-03-29] MEDS: INSULIN REGULAR, HUMAN 100 UNITS/ML SQ PRN (18:21)
[2021-03-29 20:00] VITALS: BP 113/62
[2021-03-30] VITALS: BP 108/58
[2021-03-30 00:34] LABS: GLUCOSE,POINT OF CARE 325 MG/DL (70-110)
[2021-03-30] MEDS: INSULIN REGULAR, HUMAN 100 UNITS/ML SQ PRN ×4 (00:34→17:37)
[2021-03-30] MEDS: NOREPINEPHRINE BITARTRATE 16 MG in DEXTROSE 5%-WATER 234 ML IV PRN (02:09)
[2021-03-30] MEDS: FentaNYL CIT 1000MCG/0.9% NACL 100 ML IV PRN (03:15)
[2021-03-30] MEDS: PIPERACILLIN/TAZO 3.375 GM/D5W 50 ML IV SCH ×4 (03:15→22:11)
[2021-03-30 04:00] VITALS: BP 134/58
[2021-03-30 05:28] LABS: HEMATOCRIT 31.7 % (41-53); HEMOGLOBIN 10.5 g/dL (13.5-17.5); MEAN CORPUSCULAR HEMOGLOBIN 28.9 pg (26.0-34.0); MEAN CORPUSCULAR HGB CONC 33.2 G/dL (31.0-37.0); MEAN CORPUSCULAR VOLUME 87 fL (80-100); PLATELET COUNT (AUTO) 36 K/uL (150-450); RED BLOOD CELL COUNT(AUTO) 3.64 MIL/uL (4.50-5.90); RED CELL DISTRIBUTION WIDTH 16.7 % (11.5-14.5)
[2021-03-30] MEDS: HYDROCORTISONE SOD SUCC 100 MG/2 ML VIAL IVP SCH ×3 (05:28→17:15)
[2021-03-30] MEDS: DEXMEDETOMIDINE HCL 400 MCG in SODIUM CHLORIDE 0.9% 96 ML IV PRN (05:30)
[2021-03-30 05:43] LABS: ALANINE AMINOTRANSFERASE 35 U/L (12-78); ALBUMIN 3.6 g/dL (3.4-5.0); ALKALINE PHOSPHATASE 173 U/L (46-116); ANION GAP 14 mmol/L (8-16); ASPARTATE AMINOTRANSFERASE 19 U/L (15-37); BILIRUBIN,TOTAL 1.9 mg/dL (0.1-1.0); CARBON DIOXIDE 26 mmol/L (22-29); CHLORIDE 112 mmol/L (98-107); CREATININE 1.02 mg/dL (0.60-1.30); GLUCOSE,RANDOM 338 mg/dL (70-110); SODIUM SERUM 152 mmol/L (136-145); TOTAL PROTEIN, SERUM 5.6 g/dL (6.4-8.2); UREA NITROGEN, BLOOD 46 mg/dL (7-18)
[2021-03-30 05:58] LABS: GLOMERULAR FILTR. RATE CALC > 60 mL/min (>60); POTASSIUM 2.9 mmol/L (3.5-5.1)
[2021-03-30 06:04] LABS: BAND NEUTROPHILS % (MANUAL) 4 % (0-5); LYMPHOCYTES % (MANUAL) 3 % (22-44); METAMYELOCYTES % 1 % (0-0); MONOCYTES % (MANUAL) 1 % (2-9); SEGMENTED NEUTROPHILS % 91 % (40-70)
[2021-03-30] MEDS: POTASSIUM CHL 10 MEQ/WATER 50 ML IV PRN ×4 (06:13→11:09)
[2021-03-30] MEDS: ALBUMIN HUMAN 25%-25GM/100ML 100 ML IV SCH ×3 (06:13→23:01)
[2021-03-30 08:00] VITALS: BP 108/66
[2021-03-30] MEDS: HEPARIN SODIUM,PORCINE 5,000 UNITS/ML VIAL SQ SCH ×5 (08:00→23:35)
[2021-03-30 08:02] LABS: PHOSPHORUS 1.5 mg/dL (2.5-4.9)
[2021-03-30] MEDS: PANTOPRAZOLE SODIUM 40 MG/VIAL IVP SCH (09:10)
[2021-03-30 12:00] VITALS: BP 93/58
[2021-03-30 16:00] VITALS: BP 111/69
[2021-03-30] MEDS: METOCLOPRAMIDE HCL 5 MG/ML 2 ML VIAL IVP SCH (17:15)
[2021-03-30 17:31] LABS: GLUCOSE,POINT OF CARE 315 MG/DL (70-110)
[2021-03-30 20:05] LABS: GLUCOSE,POINT OF CARE 319 MG/DL (70-110)
[2021-03-30 20:54] LABS: GLUCOSE,POINT OF CARE 358 MG/DL (70-110)
[2021-03-30 20:54] LABS: GLUCOSE,POINT OF CARE 333 MG/DL (70-110)
[2021-03-31] VITALS: BP 101/59
[2021-03-31] MEDS: METOCLOPRAMIDE HCL 5 MG/ML 2 ML VIAL IVP SCH ×4 (00:05→17:21)
[2021-03-31] MEDS: HYDROCORTISONE SOD SUCC 100 MG/2 ML VIAL IVP SCH ×4 (00:06→17:21)
[2021-03-31] MEDS: INSULIN REGULAR, HUMAN 100 UNITS/ML SQ PRN ×3 (00:18→13:58)
[2021-03-31] MEDS: FentaNYL CIT 1000MCG/0.9% NACL 100 ML IV PRN ×2 (01:14→22:53)
[2021-03-31] MEDS: DEXMEDETOMIDINE HCL 400 MCG in SODIUM CHLORIDE 0.9% 96 ML IV PRN (02:44)
[2021-03-31] MEDS: PIPERACILLIN/TAZO 3.375 GM/D5W 50 ML IV SCH ×4 (03:52→22:03)
[2021-03-31 04:00] VITALS: BP 92/55
[2021-03-31 04:21] LABS: GLUCOSE,POINT OF CARE 316 MG/DL (70-110)
[2021-03-31] MEDS: PROPOFOL 1000 MG/ISO-OSM 100 ML IV PRN (05:23)
[2021-03-31 05:53] LABS: HEMATOCRIT 32.4 % (41-53); HEMOGLOBIN 10.8 g/dL (13.5-17.5); MEAN CORPUSCULAR HEMOGLOBIN 28.7 pg (26.0-34.0); MEAN CORPUSCULAR HGB CONC 33.2 G/dL (31.0-37.0); MEAN CORPUSCULAR VOLUME 86 fL (80-100); RED BLOOD CELL COUNT(AUTO) 3.75 MIL/uL (4.50-5.90); RED CELL DISTRIBUTION WIDTH 16.8 % (11.5-14.5)
[2021-03-31 06:13] LABS: ALANINE AMINOTRANSFERASE 80 U/L (12-78); ALBUMIN 3.8 g/dL (3.4-5.0); ALKALINE PHOSPHATASE 228 U/L (46-116); ANION GAP 15 mmol/L (8-16); ASPARTATE AMINOTRANSFERASE 76 U/L (15-37); BILIRUBIN,TOTAL 2.3 mg/dL (0.1-1.0); CARBON DIOXIDE 25 mmol/L (22-29); CHLORIDE 112 mmol/L (98-107); CREATININE 0.96 mg/dL (0.60-1.30); GLUCOSE,RANDOM 336 mg/dL (70-110); POTASSIUM 3.4 mmol/L (3.5-5.1); SODIUM SERUM 152 mmol/L (136-145); TOTAL PROTEIN, SERUM 5.7 g/dL (6.4-8.2); UREA NITROGEN, BLOOD 53 mg/dL (7-18)
[2021-03-31 06:17] LABS: GLOMERULAR FILTR. RATE CALC > 60 mL/min (>60)
[2021-03-31 06:55] LABS: GLUCOSE,POINT OF CARE 360 MG/DL (70-110)
[2021-03-31 08:00] VITALS: BP 129/67
[2021-03-31] MEDS: HEPARIN SODIUM,PORCINE 5,000 UNITS/ML VIAL SQ SCH ×2 (08:00→15:28)
[2021-03-31] MEDS: POTASSIUM CHL 10 MEQ/WATER 50 ML IV PRN ×7 (08:25→20:44)
[2021-03-31] MEDS: ALBUMIN HUMAN 25%-25GM/100ML 100 ML IV SCH ×3 (08:26→22:53)
[2021-03-31] MEDS: PANTOPRAZOLE SODIUM 40 MG/VIAL IVP SCH (08:26)
[2021-03-31 09:38] LABS: PLATELET COUNT (AUTO) 33 K/uL (150-450); PLATELET MORPHOLOGY COMMENT LARGE PLTS PRESENT
[2021-03-31 09:43] LABS: BAND NEUTROPHILS % (MANUAL) 14 % (0-5); LYMPHOCYTES % (MANUAL) 4 % (22-44); MONOCYTES % (MANUAL) 3 % (2-9); SEGMENTED NEUTROPHILS % 79 % (40-70)
[2021-03-31 12:00] VITALS: BP 150/69
[2021-03-31 16:00] VITALS: BP 99/57
[2021-03-31] MEDS ORDERED: DEXTROSE 50%-WATER 25 GM/50 ML SYRINGE IVP PRN (17:00)
[2021-03-31] MEDS: INSULIN LISPRO 100 UNITS/ML SQ PRN (17:21)
[2021-03-31] MEDS ORDERED: POTASSIUM PHOS,M-BASIC-D-BASIC 30 MMOL in DEXTROSE 5%-WATER 250 ML IV ONE (19:30)
[2021-03-31] MEDS ORDERED: SODIUM CHLORIDE 0.9% 250 ML IV ONE (19:54)
[2021-03-31 20:00] VITALS: BP 113/60
[2021-03-31 22:10] LABS: GLUCOSE,POINT OF CARE 328 MG/DL (70-110)
[2021-03-31 22:10] LABS: GLUCOSE,POINT OF CARE 331 MG/DL (70-110)
[2021-04-01] VITALS: BP 99/57
[2021-04-01] MEDS: METOCLOPRAMIDE HCL 5 MG/ML 2 ML VIAL IVP SCH ×4 (00:13→17:48)
[2021-04-01] MEDS: HYDROCORTISONE SOD SUCC 100 MG/2 ML VIAL IVP SCH ×5 (00:13→20:29)
[2021-04-01] MEDS: INSULIN LISPRO 100 UNITS/ML SQ PRN ×4 (00:14→19:01)
[2021-04-01] MEDS: PROPOFOL 1000 MG/ISO-OSM 100 ML IV PRN ×2 (00:26→20:31)
[2021-04-01 04:00] VITALS: BP 148/72
[2021-04-01] MEDS: PIPERACILLIN/TAZO 3.375 GM/D5W 50 ML IV SCH ×4 (04:12→21:47)
[2021-04-01 04:47] LABS: HEMATOCRIT 33.6 % (41-53); HEMOGLOBIN 11.1 g/dL (13.5-17.5); MEAN CORPUSCULAR HEMOGLOBIN 28.6 pg (26.0-34.0); MEAN CORPUSCULAR VOLUME 87 fL (80-100); PLATELET COUNT (AUTO) 48 K/uL (150-450); RED BLOOD CELL COUNT(AUTO) 3.87 MIL/uL (4.50-5.90); RED CELL DISTRIBUTION WIDTH 17.1 % (11.5-14.5)
[2021-04-01 05:04] LABS: ALANINE AMINOTRANSFERASE 77 U/L (12-78); ALBUMIN 4.2 g/dL (3.4-5.0); ALKALINE PHOSPHATASE 368 U/L (46-116); ANION GAP 6 mmol/L (8-16); ASPARTATE AMINOTRANSFERASE 52 U/L (15-37); BILIRUBIN,TOTAL 3.2 mg/dL (0.1-1.0); CARBON DIOXIDE 26 mmol/L (22-29); CHLORIDE 112 mmol/L (98-107); CREATININE 0.83 mg/dL (0.60-1.30); GLUCOSE,RANDOM 368 mg/dL (70-110); PHOSPHORUS 2.9 mg/dL (2.5-4.9); POTASSIUM 3.7 mmol/L (3.5-5.1); SODIUM SERUM 144 mmol/L (136-145); TOTAL PROTEIN, SERUM 6.3 g/dL (6.4-8.2); UREA NITROGEN, BLOOD 52 mg/dL (7-18)
[2021-04-01 05:05] LABS: GLOMERULAR FILTR. RATE CALC > 60 mL/min (>60)
[2021-04-01 05:34] LABS: PLATELET MORPHOLOGY COMMENT LARGE PLTS PRESENT
[2021-04-01 05:40] LABS: BAND NEUTROPHILS % (MANUAL) 6 % (0-5); LYMPHOCYTES % (MANUAL) 6 % (22-44); METAMYELOCYTES % 11 % (0-0); MONOCYTES % (MANUAL) 2 % (2-9); SEGMENTED NEUTROPHILS % 75 % (40-70)
[2021-04-01] MEDS: ALBUMIN HUMAN 25%-25GM/100ML 100 ML IV SCH ×3 (06:05→22:18)
[2021-04-01] MEDS: HEPARIN SODIUM,PORCINE 5,000 UNITS/ML VIAL SQ SCH ×3 (08:00→15:17)
[2021-04-01] MEDS: PANTOPRAZOLE SODIUM 40 MG/VIAL IVP SCH (09:15)
[2021-04-01 14:03] LABS: GLUCOSE,POINT OF CARE 389 MG/DL (70-110)
[2021-04-01 14:04] LABS: GLUCOSE,POINT OF CARE 339 MG/DL (70-110)
[2021-04-01 20:07] VITALS: BP 121/63
[2021-04-01] MEDS: FentaNYL CIT 1000MCG/0.9% NACL 100 ML IV PRN (21:28)
[2021-04-02 00:04] VITALS: BP 145/74
[2021-04-02] MEDS: HEPARIN SODIUM,PORCINE 5,000 UNITS/ML VIAL SQ SCH ×4 (00:25→23:47)
[2021-04-02] MEDS: METOCLOPRAMIDE HCL 5 MG/ML 2 ML VIAL IVP SCH ×5 (00:25→23:48)
[2021-04-02] MEDS: INSULIN LISPRO 100 UNITS/ML SQ PRN ×5 (00:26→23:50)
[2021-04-02 04:02] VITALS: BP 142/62
[2021-04-02] MEDS: PIPERACILLIN/TAZO 3.375 GM/D5W 50 ML IV SCH ×4 (05:05→21:55)
[2021-04-02 05:07] LABS: GLUCOSE,POINT OF CARE 304 MG/DL (70-110)
[2021-04-02 05:07] LABS: GLUCOSE,POINT OF CARE 291 MG/DL (70-110)
[2021-04-02 05:07] LABS: GLUCOSE,POINT OF CARE 356 MG/DL (70-110)
[2021-04-02] MEDS: PROPOFOL 1000 MG/ISO-OSM 100 ML IV PRN ×2 (05:13→18:15)
[2021-04-02] MEDS: ALBUMIN HUMAN 25%-25GM/100ML 100 ML IV SCH ×4 (06:32→22:27)
[2021-04-02 06:53] LABS: HEMATOCRIT 33.4 % (41-53); HEMOGLOBIN 11.1 g/dL (13.5-17.5); MEAN CORPUSCULAR HEMOGLOBIN 28.6 pg (26.0-34.0); MEAN CORPUSCULAR HGB CONC 33.3 G/dL (31.0-37.0); MEAN CORPUSCULAR VOLUME 86 fL (80-100); PLATELET COUNT (AUTO) 69 K/uL (150-450); RED BLOOD CELL COUNT(AUTO) 3.89 MIL/uL (4.50-5.90); RED CELL DISTRIBUTION WIDTH 16.5 % (11.5-14.5)
[2021-04-02 07:21] LABS: BAND NEUTROPHILS % (MANUAL) 6 % (0-5); LYMPHOCYTES % (MANUAL) 5 % (22-44); METAMYELOCYTES % 9 % (0-0); MONOCYTES % (MANUAL) 5 % (2-9); SEGMENTED NEUTROPHILS % 75 % (40-70)
[2021-04-02 07:26] LABS: ALANINE AMINOTRANSFERASE 62 U/L (12-78); ALBUMIN 4.1 g/dL (3.4-5.0); ALKALINE PHOSPHATASE 339 U/L (46-116); ANION GAP 13 mmol/L (8-16); ASPARTATE AMINOTRANSFERASE 24 U/L (15-37); BILIRUBIN,TOTAL 2.5 mg/dL (0.1-1.0); CALCIUM, TOTAL 8.2 mg/dL (8.8-10.5); CARBON DIOXIDE 27 mmol/L (22-29); CHLORIDE 114 mmol/L (98-107); CREATININE 0.54 mg/dL (0.60-1.30); GLUCOSE,RANDOM 279 mg/dL (70-110); SODIUM SERUM 154 mmol/L (136-145); TOTAL PROTEIN, SERUM 5.9 g/dL (6.4-8.2); UREA NITROGEN, BLOOD 43 mg/dL (7-18)
[2021-04-02 07:30] LABS: GLOMERULAR FILTR. RATE CALC > 60 mL/min (>60); POTASSIUM 2.8 mmol/L (3.5-5.1)
[2021-04-02] MEDS: POTASSIUM CHL 10 MEQ/WATER 50 ML IV PRN ×9 (07:35→22:27)
[2021-04-02 08:02] VITALS: BP 152/68
[2021-04-02] MEDS: HYDROCORTISONE SOD SUCC 100 MG/2 ML VIAL IVP SCH ×2 (08:09→20:40)
[2021-04-02] MEDS: PANTOPRAZOLE SODIUM 40 MG/VIAL IVP SCH (08:09)
[2021-04-02 08:12] LABS: GLUCOSE,POINT OF CARE 266 MG/DL (70-110)
[2021-04-02] MEDS: ETHYL ALCOHOL 62% ANTISEPTIC NASAL INHALANT 0.6 ML AMPUL NASAL SCH ×2 (09:16→21:55)
[2021-04-02 12:00] VITALS: BP 168/82
[2021-04-02 16:00] VITALS: BP 166/83
[2021-04-02] MEDS: AmLODIPine BESYLATE 10 MG TABLET NG SCH (16:00)
[2021-04-02] MEDS: FentaNYL CIT 1000MCG/0.9% NACL 100 ML IV PRN (16:08)
[2021-04-02] MEDS: HydrALAZINE HCL 20 MG/ML VIAL IVP PRN (16:54)
[2021-04-02 19:02] LABS: ANION GAP 13 mmol/L (8-16); CALCIUM, TOTAL 8.2 mg/dL (8.8-10.5); CARBON DIOXIDE 26 mmol/L (22-29); CHLORIDE 114 mmol/L (98-107); CREATININE 0.55 mg/dL (0.60-1.30); GLUCOSE,RANDOM 284 mg/dL (70-110); POTASSIUM 3.2 mmol/L (3.5-5.1); SODIUM SERUM 153 mmol/L (136-145); UREA NITROGEN, BLOOD 35 mg/dL (7-18)
[2021-04-02 19:07] LABS: GLOMERULAR FILTR. RATE CALC > 60 mL/min (>60)
[2021-04-02 19:23] LABS: GLUCOSE,POINT OF CARE 275 MG/DL (70-110)
[2021-04-02 20:06] VITALS: BP 137/63
[2021-04-02 20:19] LABS: GLUCOSE,POINT OF CARE 288 MG/DL (70-110)
[2021-04-02] MEDS: HYPROMELLOSE 0.5% 15 ML OPHTHALMIC SOLUTION OU SCH (20:40)
[2021-04-02] MEDS ORDERED: SODIUM CHLORIDE 0.9% 250 ML IV ONE (23:44)
[2021-04-03 00:07] VITALS: BP 134/51
[2021-04-03] MEDS: POTASSIUM CHL 10 MEQ/WATER 50 ML IV PRN ×4 (00:13→09:49)
[2021-04-03 04:00] VITALS: BP 130/58
[2021-04-03 04:52] LABS: GLUCOSE,POINT OF CARE 231 MG/DL (70-110)
[2021-04-03] MEDS: PIPERACILLIN/TAZO 3.375 GM/D5W 50 ML IV SCH ×4 (05:07→21:40)
[2021-04-03] MEDS: METOCLOPRAMIDE HCL 5 MG/ML 2 ML VIAL IVP SCH ×3 (05:08→18:10)
[2021-04-03 05:24] LABS: HEMATOCRIT 33.5 % (41-53); HEMOGLOBIN 10.9 g/dL (13.5-17.5); MEAN CORPUSCULAR HEMOGLOBIN 28.3 pg (26.0-34.0); MEAN CORPUSCULAR HGB CONC 32.7 G/dL (31.0-37.0); MEAN CORPUSCULAR VOLUME 87 fL (80-100); PLATELET COUNT (AUTO) 106 K/uL (150-450); RED BLOOD CELL COUNT(AUTO) 3.87 MIL/uL (4.50-5.90); RED CELL DISTRIBUTION WIDTH 17.1 % (11.5-14.5)
[2021-04-03 05:37] LABS: ALANINE AMINOTRANSFERASE 47 U/L (12-78); ALBUMIN 3.6 g/dL (3.4-5.0); ALKALINE PHOSPHATASE 283 U/L (46-116); ANION GAP 11 mmol/L (8-16); ASPARTATE AMINOTRANSFERASE 19 U/L (15-37); BILIRUBIN,TOTAL 2.4 mg/dL (0.1-1.0); CALCIUM, TOTAL 8.1 mg/dL (8.8-10.5); CARBON DIOXIDE 27 mmol/L (22-29); CHLORIDE 115 mmol/L (98-107); CREATININE 0.44 mg/dL (0.60-1.30); GLUCOSE,RANDOM 244 mg/dL (70-110); POTASSIUM 3.3 mmol/L (3.5-5.1); SODIUM SERUM 153 mmol/L (136-145); TOTAL PROTEIN, SERUM 5.6 g/dL (6.4-8.2); UREA NITROGEN, BLOOD 29 mg/dL (7-18)
[2021-04-03 05:49] LABS: GLOMERULAR FILTR. RATE CALC > 60 mL/min (>60)
[2021-04-03] MEDS: ALBUMIN HUMAN 25%-25GM/100ML 100 ML IV SCH ×3 (06:59→23:16)
[2021-04-03] MEDS: INSULIN LISPRO 100 UNITS/ML SQ PRN ×3 (07:00→18:11)
[2021-04-03 07:34] LABS: BAND NEUTROPHILS % (MANUAL) 12 % (0-5); LYMPHOCYTES % (MANUAL) 4 % (22-44); METAMYELOCYTES % 4 % (0-0); MONOCYTES % (MANUAL) 4 % (2-9); MYELOCYTES % 1 % (0-0); SEGMENTED NEUTROPHILS % 75 % (40-70)
[2021-04-03] MEDS: HYDROCORTISONE SOD SUCC 100 MG/2 ML VIAL IVP SCH (07:41)
[2021-04-03] MEDS: PANTOPRAZOLE SODIUM 40 MG/VIAL IVP SCH (07:42)
[2021-04-03] MEDS: HEPARIN SODIUM,PORCINE 5,000 UNITS/ML VIAL SQ SCH ×2 (07:43→17:52)
[2021-04-03] MEDS: AmLODIPine BESYLATE 10 MG TABLET NG SCH (07:44)
[2021-04-03] MEDS: PROPOFOL 1000 MG/ISO-OSM 100 ML IV PRN ×2 (07:45→20:31)
[2021-04-03] MEDS: ETHYL ALCOHOL 62% ANTISEPTIC NASAL INHALANT 0.6 ML AMPUL NASAL SCH ×2 (07:52→21:11)
[2021-04-03] MEDS: HYPROMELLOSE 0.5% 15 ML OPHTHALMIC SOLUTION OU SCH ×2 (07:52→21:11)
[2021-04-03 08:00] VITALS: BP 134/68
[2021-04-03 08:13] LABS: GLUCOSE,POINT OF CARE 253 MG/DL (70-110)
[2021-04-03] MEDS: FentaNYL CIT 1000MCG/0.9% NACL 100 ML IV PRN (08:29)
[2021-04-03 12:00] VITALS: BP 151/70
[2021-04-03 13:05] LABS: ANION GAP 14 mmol/L (8-16); CALCIUM, TOTAL 8.5 mg/dL (8.8-10.5); CARBON DIOXIDE 26 mmol/L (22-29); CHLORIDE 114 mmol/L (98-107); CREATININE 0.35 mg/dL (0.60-1.30); GLOMERULAR FILTR. RATE CALC > 60 mL/min (>60); GLUCOSE,RANDOM 276 mg/dL (70-110); POTASSIUM 3.7 mmol/L (3.5-5.1); SODIUM SERUM 154 mmol/L (136-145); UREA NITROGEN, BLOOD 30 mg/dL (7-18)
[2021-04-03 13:12] LABS: ABG A-A DIFF O2 129.1 mmHg (10-20.0); ABG BASE EXCESS 2.6 mmol/L (-2.0-3.0); ABG CARBOXYHEMOGLOBIN 0.3 % (0.0-1.5); ABG HCO3 26.8 mmol/L (22.0-26.0); ABG METHEMOGLOBIN 0.3 % (0.0-1.5); ABG OXYGEN CONTENT 16.5 mL/dL (15.0-23.0); ABG OXYGEN SATURATION 95.9 % (95.0-98.0); ABG OXYHEMOGLOBIN 95.3 % (94.0-100.0); ABG PCO2 37 mmHg (35-45); ABG TOTAL HEMOGLOBIN 12.3 G/dL (12.0-18.0); CPAP, BG 0 cm H2O; O2 DEVICE,BLOOD GAS VENTILATOR (ROOM AIR); PO2, ARTERIAL BG 77.6 mmHg (75.0-83.0); PRESSURE SUPPORT, BG 8 cm H2O; SITE, BLOOD GAS ARTERIAL LINE; SOURCE, BLOOD GAS ARTERIAL; SPONTANEOUS VT, BG 400 ml; TEMPERATURE, FAHRENHEIT, BG 98.6 FAHREN (96.0-98.6); VENT MODE, BG CPAP (ROOM AIR)
[2021-04-03 14:22] LABS: GLUCOSE,POINT OF CARE 296 MG/DL (70-110)
[2021-04-03 16:00] VITALS: BP 132/61
[2021-04-03 19:44] LABS: GLUCOSE,POINT OF CARE 226 MG/DL (70-110)
[2021-04-03 20:00] VITALS: BP 136/59
[2021-04-04] VITALS: BP 139/62
[2021-04-04] MEDS: HEPARIN SODIUM,PORCINE 5,000 UNITS/ML VIAL SQ SCH ×3 (00:35→16:04)
[2021-04-04] MEDS: METOCLOPRAMIDE HCL 5 MG/ML 2 ML VIAL IVP SCH ×4 (00:36→17:13)
[2021-04-04] MEDS: INSULIN LISPRO 100 UNITS/ML SQ PRN ×4 (00:38→17:37)
[2021-04-04 01:44] LABS: GLUCOSE,POINT OF CARE 221 MG/DL (70-110)
[2021-04-04 04:00] VITALS: BP 139/63
[2021-04-04] MEDS: PIPERACILLIN/TAZO 3.375 GM/D5W 50 ML IV SCH ×4 (04:01→22:27)
[2021-04-04] MEDS ORDERED: SODIUM CHLORIDE 0.9% 250 ML IV ONE (04:05)
[2021-04-04] MEDS ORDERED: SODIUM CHLORIDE 0.9% 500 ML IV ONE (04:54)
[2021-04-04] MEDS: PROPOFOL 1000 MG/ISO-OSM 100 ML IV PRN (06:22)
[2021-04-04 07:18] LABS: GLUCOSE,POINT OF CARE 244 MG/DL (70-110)
[2021-04-04] MEDS: ALBUMIN HUMAN 25%-25GM/100ML 100 ML IV SCH ×3 (07:24→23:00)
[2021-04-04 08:00] VITALS: BP 140/64
[2021-04-04] MEDS: PANTOPRAZOLE SODIUM 40 MG/VIAL IVP SCH (08:06)
[2021-04-04] MEDS: AmLODIPine BESYLATE 10 MG TABLET NG SCH (08:06)
[2021-04-04] MEDS: HYDROCORTISONE SOD SUCC 100 MG/2 ML VIAL IVP SCH (08:06)
[2021-04-04] MEDS: HYPROMELLOSE 0.5% 15 ML OPHTHALMIC SOLUTION OU SCH ×2 (08:08→20:59)
[2021-04-04] MEDS: ETHYL ALCOHOL 62% ANTISEPTIC NASAL INHALANT 0.6 ML AMPUL NASAL SCH ×2 (08:08→20:59)
[2021-04-04 10:29] LABS: POTASSIUM 2.7 mmol/L (3.5-5.1); SODIUM SERUM 153 mmol/L (136-145)
[2021-04-04 10:30] LABS: ANION GAP 11 mmol/L (8-16); CALCIUM, TOTAL 8.1 mg/dL (8.8-10.5); CARBON DIOXIDE 27 mmol/L (22-29); CHLORIDE 115 mmol/L (98-107); CREATININE 0.47 mg/dL (0.60-1.30); GLOMERULAR FILTR. RATE CALC > 60 mL/min (>60); GLUCOSE,RANDOM 251 mg/dL (70-110); HEMOGLOBIN 9.6 g/dL (13.5-17.5); MEAN CORPUSCULAR HEMOGLOBIN 28.5 pg (26.0-34.0); MEAN CORPUSCULAR HGB CONC 33.1 G/dL (31.0-37.0); MEAN CORPUSCULAR VOLUME 86 fL (80-100); PLATELET COUNT (AUTO) 100 K/uL (150-450); RED BLOOD CELL COUNT(AUTO) 3.37 MIL/uL (4.50-5.90); RED CELL DISTRIBUTION WIDTH 16.7 % (11.5-14.5); UREA NITROGEN, BLOOD 28 mg/dL (7-18)
[2021-04-04 10:36] LABS: BAND NEUTROPHILS % (MANUAL) 14 % (0-5); LYMPHOCYTES % (MANUAL) 3 % (22-44); METAMYELOCYTES % 2 % (0-0); MONOCYTES % (MANUAL) 3 % (2-9); MYELOCYTES % 1 % (0-0); SEGMENTED NEUTROPHILS % 77 % (40-70)
[2021-04-04] MEDS: POTASSIUM CHL 10 MEQ/WATER 50 ML IV PRN ×6 (11:31→22:27)
[2021-04-04] MEDS: FentaNYL CIT 1000MCG/0.9% NACL 100 ML IV PRN (11:31)
[2021-04-04 12:00] VITALS: BP 115/54
[2021-04-04] MEDS: ACETAMINOPHEN 650 MG/20.3 ML SOLUTION UDCUP PEG PRN (12:37)
[2021-04-04] MEDS: DEXMEDETOMIDINE HCL 400 MCG in SODIUM CHLORIDE 0.9% 96 ML IV PRN (14:13)
[2021-04-04 16:00] VITALS: BP 118/54
[2021-04-04 17:18] LABS: GLUCOSE,POINT OF CARE 258 MG/DL (70-110)
[2021-04-04 19:06] LABS: ABG HCO3 29.4 mmol/L (22.0-26.0); ABG PCO2 34 mmHg (35-45); ABG PH 7.533 (7.35-7.450); PO2, ARTERIAL BG 77.7 mmHg (75.0-83.0); SITE, BLOOD GAS ARTERIAL LINE; SOURCE, BLOOD GAS ARTERIAL; TEMPERATURE, FAHRENHEIT, BG 99.6 FAHREN (96.0-98.6)
[2021-04-04 19:07] LABS: ABG BASE EXCESS 5.5 mmol/L (-2.0-3.0); ABG CARBOXYHEMOGLOBIN 0.3 % (0.0-1.5); ABG METHEMOGLOBIN 0.3 % (0.0-1.5); ABG OXYHEMOGLOBIN 96.1 % (94.0-100.0); ABG TOTAL HEMOGLOBIN 9.9 G/dL (12.0-18.0)
[2021-04-04 19:08] LABS: ABG OXYGEN CONTENT 13.5 mL/dL (15.0-23.0); ABG OXYGEN SATURATION 96.7 % (95.0-98.0); O2 DEVICE,BLOOD GAS VENTILATOR (ROOM AIR)
[2021-04-04 19:09] LABS: CPAP, BG 5 cm H2O; PRESSURE SUPPORT, BG 8 cm H2O; SPONTANEOUS VT, BG 454 ml; VENT MODE, BG Press. Support Vent. (ROOM AIR)
[2021-04-04 20:00] VITALS: BP 101/46
[2021-04-04 23:09] LABS: GLUCOSE,POINT OF CARE 254 MG/DL (70-110)
[2021-04-05] VITALS: BP 125/59
[2021-04-05] MEDS ORDERED: SODIUM CHLORIDE 0.9% 500 ML IV ONE (00:05)
[2021-04-05] MEDS: HEPARIN SODIUM,PORCINE 5,000 UNITS/ML VIAL SQ SCH ×4 (00:08→23:06)
[2021-04-05] MEDS: METOCLOPRAMIDE HCL 5 MG/ML 2 ML VIAL IVP SCH ×5 (00:08→23:07)
[2021-04-05] MEDS: INSULIN LISPRO 100 UNITS/ML SQ PRN ×5 (00:10→23:18)
[2021-04-05] MEDS: POTASSIUM CHL 10 MEQ/WATER 50 ML IV PRN ×4 (00:29→13:16)
[2021-04-05] MEDS: PROPOFOL 1000 MG/ISO-OSM 100 ML IV PRN ×2 (00:32→09:43)
[2021-04-05] MEDS: PIPERACILLIN/TAZO 3.375 GM/D5W 50 ML IV SCH ×4 (03:58→21:03)
[2021-04-05 04:00] VITALS: BP 137/66
[2021-04-05 06:18] LABS: HEMATOCRIT 30.1 % (41-53); HEMOGLOBIN 9.8 g/dL (13.5-17.5); MEAN CORPUSCULAR HEMOGLOBIN 28.3 pg (26.0-34.0); MEAN CORPUSCULAR HGB CONC 32.7 G/dL (31.0-37.0); MEAN CORPUSCULAR VOLUME 87 fL (80-100); PLATELET COUNT (AUTO) 109 K/uL (150-450); RED BLOOD CELL COUNT(AUTO) 3.47 MIL/uL (4.50-5.90); RED CELL DISTRIBUTION WIDTH 17.6 % (11.5-14.5)
[2021-04-05] MEDS: FentaNYL CIT 1000MCG/0.9% NACL 100 ML IV PRN (06:40)
[2021-04-05] MEDS: ALBUMIN HUMAN 25%-25GM/100ML 100 ML IV SCH ×3 (06:40→23:06)
[2021-04-05 06:45] LABS: GLUCOSE,POINT OF CARE 256 MG/DL (70-110)
[2021-04-05 07:02] LABS: ANION GAP 11 mmol/L (8-16); CALCIUM, TOTAL 8.5 mg/dL (8.8-10.5); CARBON DIOXIDE 28 mmol/L (22-29); CHLORIDE 114 mmol/L (98-107); CREATININE 0.36 mg/dL (0.60-1.30); GLOMERULAR FILTR. RATE CALC > 60 mL/min (>60); GLUCOSE,RANDOM 238 mg/dL (70-110); POTASSIUM 3.1 mmol/L (3.5-5.1); SODIUM SERUM 153 mmol/L (136-145); UREA NITROGEN, BLOOD 33 mg/dL (7-18)
[2021-04-05 08:00] VITALS: BP 133/64
[2021-04-05] MEDS: AmLODIPine BESYLATE 10 MG TABLET NG SCH (09:00)
[2021-04-05] MEDS: HYDROCORTISONE SOD SUCC 100 MG/2 ML VIAL IVP SCH (09:40)
[2021-04-05] MEDS: PANTOPRAZOLE SODIUM 40 MG/VIAL IVP SCH (09:40)
[2021-04-05] MEDS: ETHYL ALCOHOL 62% ANTISEPTIC NASAL INHALANT 0.6 ML AMPUL NASAL SCH ×2 (09:41→21:03)
[2021-04-05] MEDS: HYPROMELLOSE 0.5% 15 ML OPHTHALMIC SOLUTION OU SCH ×2 (09:42→21:03)
[2021-04-05 12:00] VITALS: BP 142/68
[2021-04-05 13:26] LABS: GLUCOSE,POINT OF CARE 226 MG/DL (70-110)
[2021-04-05 13:26] LABS: GLUCOSE,POINT OF CARE 264 MG/DL (70-110)
[2021-04-05 14:09] LABS: SITE, BLOOD GAS ARTERIAL LINE; SOURCE, BLOOD GAS ARTERIAL
[2021-04-05 14:10] LABS: ABG BASE EXCESS 4.6 mmol/L (-2.0-3.0); ABG CARBOXYHEMOGLOBIN 0.3 % (0.0-1.5); ABG HCO3 28.4 mmol/L (22.0-26.0); ABG METHEMOGLOBIN 0.3 % (0.0-1.5); ABG OXYGEN CONTENT 14.6 mL/dL (15.0-23.0); ABG OXYHEMOGLOBIN 95.3 % (94.0-100.0); ABG PCO2 36 mmHg (35-45); ABG TOTAL HEMOGLOBIN 10.8 G/dL (12.0-18.0); TEMPERATURE, FAHRENHEIT, BG 98.2 FAHREN (96.0-98.6)
[2021-04-05 14:11] LABS: ABG A-A DIFF O2 165.6 mmHg (10-20.0); CPAP, BG 5 cm H2O; O2 DEVICE,BLOOD GAS VENTILATOR (ROOM AIR); PRESSURE SUPPORT, BG 8 cm H2O; SPONTANEOUS VT, BG 475 ml; VENT MODE, BG CPAP (ROOM AIR)
[2021-04-05 14:24] LABS: BAND NEUTROPHILS % (MANUAL) 13 % (0-5); LYMPHOCYTES % (MANUAL) 4 % (22-44); MONOCYTES % (MANUAL) 4 % (2-9); SEGMENTED NEUTROPHILS % 79 % (40-70)
[2021-04-05 16:00] VITALS: BP 96/47
[2021-04-05 19:43] LABS: GLUCOSE,POINT OF CARE 204 MG/DL (70-110)
[2021-04-05 20:00] VITALS: BP 131/59
[2021-04-06] VITALS: BP 142/67
[2021-04-06 02:46] LABS: GLUCOSE,POINT OF CARE 238 MG/DL (70-110)
[2021-04-06 04:00] VITALS: BP 115/54
[2021-04-06] MEDS: PIPERACILLIN/TAZO 3.375 GM/D5W 50 ML IV SCH ×4 (04:07→22:48)
[2021-04-06] MEDS: PROPOFOL 1000 MG/ISO-OSM 100 ML IV PRN ×2 (04:09→19:54)
[2021-04-06] MEDS: METOCLOPRAMIDE HCL 5 MG/ML 2 ML VIAL IVP SCH ×3 (05:46→17:28)
[2021-04-06] MEDS: INSULIN LISPRO 100 UNITS/ML SQ PRN ×3 (05:47→18:49)
[2021-04-06 05:51] LABS: ANION GAP 8 mmol/L (8-16); CALCIUM, TOTAL 8.1 mg/dL (8.8-10.5); CARBON DIOXIDE 27 mmol/L (22-29); CHLORIDE 115 mmol/L (98-107); GLUCOSE,RANDOM 255 mg/dL (70-110); SODIUM SERUM 150 mmol/L (136-145); UREA NITROGEN, BLOOD 36 mg/dL (7-18)
[2021-04-06 05:55] LABS: GLOMERULAR FILTR. RATE CALC > 60 mL/min (>60)
[2021-04-06] MEDS: ALBUMIN HUMAN 25%-25GM/100ML 100 ML IV SCH ×3 (06:00→22:48)
[2021-04-06] MEDS: POTASSIUM CHL 10 MEQ/WATER 50 ML IV PRN ×3 (06:01→10:08)
[2021-04-06] MEDS: FentaNYL CIT 1000MCG/0.9% NACL 100 ML IV PRN (06:11)
[2021-04-06 08:32] LABS: GLUCOSE,POINT OF CARE 234 MG/DL (70-110)
[2021-04-06] MEDS: IPRATROPIUM BROMIDE 0.5 MG/2.5 ML NEB SOLUTION NEB PRN ×4 (11:13→22:30)
[2021-04-06] MEDS: ACETYLCYSTEINE 10% 100 MG/ML 4 ML NEB SOLUTION NEB SCH ×4 (11:13→22:30)
[2021-04-06] MEDS: ALBUTEROL SULFATE 2.5 MG/0.5 ML NEB SOLUTION NEB PRN ×4 (11:13→22:30)
[2021-04-06 12:00] VITALS: BP 154/68
[2021-04-06] MEDS: PANTOPRAZOLE SODIUM 40 MG/VIAL IVP SCH (12:13)
[2021-04-06] MEDS: HYDROCORTISONE SOD SUCC 100 MG/2 ML VIAL IVP SCH (12:13)
[2021-04-06] MEDS: ETHYL ALCOHOL 62% ANTISEPTIC NASAL INHALANT 0.6 ML AMPUL NASAL SCH ×2 (12:13→21:12)
[2021-04-06] MEDS: AmLODIPine BESYLATE 10 MG TABLET NG SCH (12:14)
[2021-04-06] MEDS: HEPARIN SODIUM,PORCINE 5,000 UNITS/ML VIAL SQ SCH ×2 (12:14→15:11)
[2021-04-06] MEDS: HYPROMELLOSE 0.5% 15 ML OPHTHALMIC SOLUTION OU SCH ×2 (12:15→21:13)
[2021-04-06 13:51] LABS: GLUCOSE,POINT OF CARE 307 MG/DL (70-110)
[2021-04-06] MEDS ORDERED: 0.9% SODIUM CHLORIDE 5 ML NEB SOLUTION NEB ONE (14:50)
[2021-04-06 16:00] VITALS: BP 131/60
[2021-04-06 18:51] LABS: GLUCOSE,POINT OF CARE 289 MG/DL (70-110)
[2021-04-06] MEDS ORDERED: SODIUM CHLORIDE 0.9% 500 ML IV ONE (19:40)
[2021-04-06 20:00] VITALS: BP 127/59
[2021-04-07] VITALS: BP 110/50
[2021-04-07] MEDS: METOCLOPRAMIDE HCL 5 MG/ML 2 ML VIAL IVP SCH ×4 (00:08→17:06)
[2021-04-07] MEDS: HEPARIN SODIUM,PORCINE 5,000 UNITS/ML VIAL SQ SCH ×3 (00:08→14:56)
[2021-04-07] MEDS: FentaNYL CIT 1000MCG/0.9% NACL 100 ML IV PRN ×2 (01:00→14:58)
[2021-04-07] MEDS: INSULIN LISPRO 100 UNITS/ML SQ PRN ×3 (01:41→13:48)
[2021-04-07] MEDS: PROPOFOL 1000 MG/ISO-OSM 100 ML IV PRN (02:10)
[2021-04-07 04:00] VITALS: BP 132/57
[2021-04-07] MEDS: ACETYLCYSTEINE 10% 100 MG/ML 4 ML NEB SOLUTION NEB SCH ×6 (04:21→22:23)
[2021-04-07] MEDS: ALBUTEROL SULFATE 2.5 MG/0.5 ML NEB SOLUTION NEB PRN ×6 (04:21→22:23)
[2021-04-07] MEDS: IPRATROPIUM BROMIDE 0.5 MG/2.5 ML NEB SOLUTION NEB PRN ×6 (04:21→22:23)
[2021-04-07] MEDS ORDERED: SODIUM CHLORIDE 0.9% 250 ML IV ONE ×2 (04:54→23:43)
[2021-04-07] MEDS: PIPERACILLIN/TAZO 3.375 GM/D5W 50 ML IV SCH ×4 (04:56→22:38)
[2021-04-07 05:51] LABS: HEMATOCRIT 27.9 % (41-53); HEMOGLOBIN 9.1 g/dL (13.5-17.5); MEAN CORPUSCULAR HEMOGLOBIN 28.4 pg (26.0-34.0); MEAN CORPUSCULAR HGB CONC 32.7 G/dL (31.0-37.0); MEAN CORPUSCULAR VOLUME 87 fL (80-100); PLATELET COUNT (AUTO) 146 K/uL (150-450); RED BLOOD CELL COUNT(AUTO) 3.21 MIL/uL (4.50-5.90); RED CELL DISTRIBUTION WIDTH 17.4 % (11.5-14.5)
[2021-04-07 06:04] LABS: ANION GAP 6 mmol/L (8-16); CALCIUM, TOTAL 8.1 mg/dL (8.8-10.5); CARBON DIOXIDE 29 mmol/L (22-29); CHLORIDE 115 mmol/L (98-107); GLUCOSE,RANDOM 211 mg/dL (70-110); SODIUM SERUM 150 mmol/L (136-145); UREA NITROGEN, BLOOD 35 mg/dL (7-18)
[2021-04-07 06:09] LABS: GLOMERULAR FILTR. RATE CALC > 60 mL/min (>60); POTASSIUM 2.9 mmol/L (3.5-5.1)
[2021-04-07 07:28] LABS: BAND NEUTROPHILS % (MANUAL) 9 % (0-5); LYMPHOCYTES % (MANUAL) 6 % (22-44); MONOCYTES % (MANUAL) 1 % (2-9); SEGMENTED NEUTROPHILS % 84 % (40-70)
[2021-04-07] MEDS: ALBUMIN HUMAN 25%-25GM/100ML 100 ML IV SCH ×3 (07:41→22:40)
[2021-04-07 08:00] VITALS: BP 123/55
[2021-04-07] MEDS: POTASSIUM CHL 10 MEQ/WATER 50 ML IV PRN ×3 (08:39→10:48)
[2021-04-07] MEDS: HYDROCORTISONE SOD SUCC 100 MG/2 ML VIAL IVP SCH (10:15)
[2021-04-07] MEDS: ETHYL ALCOHOL 62% ANTISEPTIC NASAL INHALANT 0.6 ML AMPUL NASAL SCH ×2 (10:15→21:03)
[2021-04-07] MEDS: AmLODIPine BESYLATE 10 MG TABLET NG SCH (10:15)
[2021-04-07] MEDS: PANTOPRAZOLE SODIUM 40 MG/VIAL IVP SCH (10:15)
[2021-04-07] MEDS: HYPROMELLOSE 0.5% 15 ML OPHTHALMIC SOLUTION OU SCH ×2 (10:28→21:04)
[2021-04-07 11:00] LABS: APPEARANCE,URINE TURBID (CLEAR); BILIRUBIN,URINE NEGATIVE (NEGATIVE); GLUCOSE, URINE (UA) NEGATIVE (NEGATIVE); KETONES,URINE NEGATIVE (NEGATIVE); LEUKOCYTE ESTERASE ,URINE MODERATE (NEGATIVE); NITRATE,URINE NEGATIVE (NEGATIVE); OCCULT BLOOD,URINE MODERATE (NEGATIVE); PROTEIN,URINE POS 1+ (NEGATIVE)
[2021-04-07 11:11] LABS: BACTERIA,URINE Few /HPF (None Seen); SQUAMOUS EPITHELIAL CELL,UR Few /LPF (None Seen); YEAST,URINE Many /HPF (None Seen)
[2021-04-07 11:13] LABS: GLUCOSE,POINT OF CARE 214 MG/DL (70-110)
[2021-04-07 11:13] LABS: GLUCOSE,POINT OF CARE 246 MG/DL (70-110)
[2021-04-07 12:00] VITALS: BP 116/56
[2021-04-07 13:13] LABS: GLUCOSE,POINT OF CARE 249 MG/DL (70-110)
[2021-04-07] MEDS ORDERED: FUROSEMIDE 40 MG/4 ML VIAL IVP ONE (14:45)
[2021-04-07 16:00] VITALS: BP 107/68
[2021-04-07 20:00] VITALS: BP 107/49
[2021-04-07 20:16] LABS: GLUCOSE,POINT OF CARE 293 MG/DL (70-110)
[2021-04-07] MEDS: INSULIN GLARGINE,HUM.REC.ANLOG 100 UNITS/ML SQ SCH (21:09)
[2021-04-07 21:17] LABS: GLUCOSE,POINT OF CARE 216 MG/DL (70-110)
[2021-04-08] VITALS: BP 91/42
[2021-04-08] MEDS: INSULIN LISPRO 100 UNITS/ML SQ PRN ×4 (00:02→18:30)
[2021-04-08 00:47] LABS: GLUCOSE,POINT OF CARE 214 MG/DL (70-110)
[2021-04-08] MEDS ORDERED: SODIUM CHLORIDE 0.9% 500 ML IV ONE ×2 (01:00→23:37)
[2021-04-08] MEDS: PROPOFOL 1000 MG/ISO-OSM 100 ML IV PRN ×4 (01:00→21:17)
[2021-04-08] MEDS: ALBUTEROL SULFATE 2.5 MG/0.5 ML NEB SOLUTION NEB PRN ×6 (02:48→22:32)
[2021-04-08] MEDS: ACETYLCYSTEINE 10% 100 MG/ML 4 ML NEB SOLUTION NEB SCH ×6 (02:48→22:32)
[2021-04-08] MEDS: IPRATROPIUM BROMIDE 0.5 MG/2.5 ML NEB SOLUTION NEB PRN ×6 (02:48→22:32)
[2021-04-08] MEDS: PIPERACILLIN/TAZO 3.375 GM/D5W 50 ML IV SCH ×2 (03:59→08:25)
[2021-04-08 04:00] VITALS: BP 107/44
[2021-04-08 05:36] LABS: HEMATOCRIT 28.2 % (41-53); HEMOGLOBIN 9.3 g/dL (13.5-17.5); MEAN CORPUSCULAR HEMOGLOBIN 28.5 pg (26.0-34.0); MEAN CORPUSCULAR VOLUME 86 fL (80-100); PLATELET COUNT (AUTO) 135 K/uL (150-450); RED BLOOD CELL COUNT(AUTO) 3.27 MIL/uL (4.50-5.90); RED CELL DISTRIBUTION WIDTH 17.5 % (11.5-14.5)
[2021-04-08 05:46] LABS: ANION GAP 12 mmol/L (8-16); CALCIUM, TOTAL 7.9 mg/dL (8.8-10.5); CARBON DIOXIDE 27 mmol/L (22-29); CHLORIDE 113 mmol/L (98-107); CREATININE 0.47 mg/dL (0.60-1.30); GLUCOSE,RANDOM 178 mg/dL (70-110); SODIUM SERUM 152 mmol/L (136-145); UREA NITROGEN, BLOOD 36 mg/dL (7-18)
[2021-04-08 05:47] LABS: GLOMERULAR FILTR. RATE CALC > 60 mL/min (>60)
[2021-04-08 05:49] LABS: POTASSIUM 2.5 mmol/L (3.5-5.1)
[2021-04-08] MEDS: METOCLOPRAMIDE HCL 5 MG/ML 2 ML VIAL IVP SCH ×4 (06:09→17:29)
[2021-04-08] MEDS: POTASSIUM CHL 10 MEQ/WATER 50 ML IV PRN ×5 (06:09→15:17)
[2021-04-08] MEDS: ALBUMIN HUMAN 25%-25GM/100ML 100 ML IV SCH ×3 (07:00→22:49)
[2021-04-08] MEDS: FentaNYL CIT 1000MCG/0.9% NACL 100 ML IV PRN ×2 (07:05→18:39)
[2021-04-08 07:24] LABS: BAND NEUTROPHILS % (MANUAL) 20 % (0-5); EOSINOPHILS % (MANUAL) 1 % (1-6); LYMPHOCYTES % (MANUAL) 2 % (22-44); MONOCYTES % (MANUAL) 3 % (2-9); SEGMENTED NEUTROPHILS % 74 % (40-70)
[2021-04-08 08:00] VITALS: BP 125/86
[2021-04-08] MEDS: HEPARIN SODIUM,PORCINE 5,000 UNITS/ML VIAL SQ SCH ×3 (08:17→17:27)
[2021-04-08] MEDS: PANTOPRAZOLE SODIUM 40 MG/VIAL IVP SCH (08:21)
[2021-04-08] MEDS: HYDROCORTISONE SOD SUCC 100 MG/2 ML VIAL IVP SCH (08:24)
[2021-04-08] MEDS: ETHYL ALCOHOL 62% ANTISEPTIC NASAL INHALANT 0.6 ML AMPUL NASAL SCH ×2 (08:24→20:33)
[2021-04-08] MEDS: AmLODIPine BESYLATE 10 MG TABLET NG SCH (08:24)
[2021-04-08] MEDS: HYPROMELLOSE 0.5% 15 ML OPHTHALMIC SOLUTION OU SCH ×2 (08:25→20:34)
[2021-04-08 12:00] VITALS: BP 125/57
[2021-04-08] MEDS: CefTRIAXone 1 GM/DEXTROSE 50 ML IV SCH (13:19)
[2021-04-08 14:19] LABS: GLUCOSE,POINT OF CARE 197 MG/DL (70-110)
[2021-04-08 14:19] LABS: GLUCOSE,POINT OF CARE 186 MG/DL (70-110)
[2021-04-08 15:01] LABS: ANION GAP 9 mmol/L (8-16); CALCIUM, TOTAL 6.9 mg/dL (8.8-10.5); CARBON DIOXIDE 26 mmol/L (22-29); CHLORIDE 116 mmol/L (98-107); CREATININE 0.35 mg/dL (0.60-1.30); GLOMERULAR FILTR. RATE CALC > 60 mL/min (>60); GLUCOSE,RANDOM 185 mg/dL (70-110); SODIUM SERUM 151 mmol/L (136-145); UREA NITROGEN, BLOOD 30 mg/dL (7-18)
[2021-04-08 15:02] LABS: POTASSIUM 2.4 mmol/L (3.5-5.1)
[2021-04-08] MEDS ORDERED: FUROSEMIDE 40 MG/4 ML VIAL IVP SCH (15:30)
[2021-04-08 16:00] VITALS: BP 116/52
[2021-04-08] MEDS: POTASSIUM CHL 10 MEQ/WATER 50 ML IV SCH ×3 (16:18→17:28)
[2021-04-08 18:59] LABS: ANION GAP 11 mmol/L (8-16); CALCIUM, TOTAL 8.3 mg/dL (8.8-10.5); CARBON DIOXIDE 28 mmol/L (22-29); CHLORIDE 111 mmol/L (98-107); CREATININE 0.37 mg/dL (0.60-1.30); GLOMERULAR FILTR. RATE CALC > 60 mL/min (>60); GLUCOSE,RANDOM 234 mg/dL (70-110); POTASSIUM 3.5 mmol/L (3.5-5.1); SODIUM SERUM 150 mmol/L (136-145); UREA NITROGEN, BLOOD 34 mg/dL (7-18)
[2021-04-08 19:20] LABS: GLUCOSE,POINT OF CARE 219 MG/DL (70-110)
[2021-04-08 20:00] VITALS: BP 123/50
[2021-04-08] MEDS: SODIUM,POTASSIUM PHOSPHATES POWDER PACKET PO SCH (20:32)
[2021-04-08] MEDS: INSULIN GLARGINE,HUM.REC.ANLOG 100 UNITS/ML SQ SCH (20:35)
[2021-04-08 21:47] LABS: GLUCOSE,POINT OF CARE 175 MG/DL (70-110)
[2021-04-08] MEDS ORDERED: SODIUM CHLORIDE 0.9% 250 ML IV ONE (23:37)
[2021-04-09] VITALS: BP 130/59
[2021-04-09] MEDS: METOCLOPRAMIDE HCL 5 MG/ML 2 ML VIAL IVP SCH ×4 (00:03→17:45)
[2021-04-09] MEDS: HEPARIN SODIUM,PORCINE 5,000 UNITS/ML VIAL SQ SCH ×3 (00:03→16:20)
[2021-04-09] MEDS: INSULIN LISPRO 100 UNITS/ML SQ PRN ×4 (00:04→17:56)
[2021-04-09] MEDS: PROPOFOL 1000 MG/ISO-OSM 100 ML IV PRN ×3 (03:13→18:35)
[2021-04-09 04:00] VITALS: BP 140/66
[2021-04-09] MEDS: ACETYLCYSTEINE 10% 100 MG/ML 4 ML NEB SOLUTION NEB SCH ×6 (04:05→22:53)
[2021-04-09] MEDS: IPRATROPIUM BROMIDE 0.5 MG/2.5 ML NEB SOLUTION NEB PRN ×6 (04:05→22:53)
[2021-04-09] MEDS: ALBUTEROL SULFATE 2.5 MG/0.5 ML NEB SOLUTION NEB PRN ×6 (04:05→22:53)
[2021-04-09 05:35] LABS: ANION GAP 9 mmol/L (8-16); CALCIUM, TOTAL 8.2 mg/dL (8.8-10.5); CARBON DIOXIDE 29 mmol/L (22-29); CHLORIDE 112 mmol/L (98-107); CREATININE 0.34 mg/dL (0.60-1.30); GLUCOSE,RANDOM 141 mg/dL (70-110); PHOSPHORUS 1.9 mg/dL (2.5-4.9); POTASSIUM 3.1 mmol/L (3.5-5.1); SODIUM SERUM 150 mmol/L (136-145); UREA NITROGEN, BLOOD 31 mg/dL (7-18)
[2021-04-09 06:16] LABS: GLUCOSE,POINT OF CARE 147 MG/DL (70-110)
[2021-04-09 06:16] LABS: GLUCOSE,POINT OF CARE 131 MG/DL (70-110)
[2021-04-09 06:19] LABS: GLOMERULAR FILTR. RATE CALC > 60 mL/min (>60)
[2021-04-09] MEDS: ALBUMIN HUMAN 25%-25GM/100ML 100 ML IV SCH ×3 (06:44→23:08)
[2021-04-09] MEDS ORDERED: 0.9% SODIUM CHLORIDE 5 ML NEB SOLUTION NEB ONE ×3 (07:46→20:18)
[2021-04-09 08:00] VITALS: BP 107/81
[2021-04-09] MEDS ORDERED: POTASSIUM CHLORIDE 20 MEQ ER TABLET PO ONE (08:45)
[2021-04-09] MEDS: ETHYL ALCOHOL 62% ANTISEPTIC NASAL INHALANT 0.6 ML AMPUL NASAL SCH ×2 (08:50→20:33)
[2021-04-09] MEDS: SODIUM,POTASSIUM PHOSPHATES POWDER PACKET PO SCH ×3 (08:50→20:36)
[2021-04-09] MEDS: HYPROMELLOSE 0.5% 15 ML OPHTHALMIC SOLUTION OU SCH ×2 (08:51→20:33)
[2021-04-09] MEDS: PANTOPRAZOLE SODIUM 40 MG/VIAL IVP SCH (08:51)
[2021-04-09] MEDS: HYDROCORTISONE SOD SUCC 100 MG/2 ML VIAL IVP SCH (08:51)
[2021-04-09] MEDS: POTASSIUM CHL 10 MEQ/WATER 50 ML IV SCH ×2 (08:55→10:41)
[2021-04-09 12:00] VITALS: BP 145/67
[2021-04-09] MEDS: DEXMEDETOMIDINE HCL 400 MCG in SODIUM CHLORIDE 0.9% 96 ML IV PRN (12:29)
[2021-04-09] MEDS: CefTRIAXone 1 GM/DEXTROSE 50 ML IV SCH (13:10)
[2021-04-09 16:00] VITALS: BP 110/51
[2021-04-09] MEDS ORDERED: FUROSEMIDE 20 MG/2 ML VIAL IVP ONE (17:15)
[2021-04-09] MEDS ORDERED: POTASSIUM CHL 10 MEQ/WATER 50 ML IV ONE (17:15)
[2021-04-09 17:58] LABS: GLUCOSE,POINT OF CARE 201 MG/DL (70-110)
[2021-04-09 18:15] LABS: GLUCOSE,POINT OF CARE 218 MG/DL (70-110)
[2021-04-09] MEDS: FentaNYL CIT 1000MCG/0.9% NACL 100 ML IV PRN (18:34)
[2021-04-09 20:00] VITALS: BP 122/56
[2021-04-09] MEDS: INSULIN GLARGINE,HUM.REC.ANLOG 100 UNITS/ML SQ SCH (21:02)
[2021-04-10] VITALS: BP 150/68
[2021-04-10] MEDS: PROPOFOL 1000 MG/ISO-OSM 100 ML IV PRN ×4 (01:23→17:40)
[2021-04-10] MEDS ORDERED: SODIUM CHLORIDE 0.9% 500 ML IV ONE (02:03)
[2021-04-10] MEDS ORDERED: SODIUM CHLORIDE 0.9% 250 ML IV ONE (02:03)
[2021-04-10] MEDS: ALBUTEROL SULFATE 2.5 MG/0.5 ML NEB SOLUTION NEB PRN ×6 (03:53→23:34)
[2021-04-10] MEDS: ACETYLCYSTEINE 10% 100 MG/ML 4 ML NEB SOLUTION NEB SCH ×6 (03:53→23:34)
[2021-04-10] MEDS: IPRATROPIUM BROMIDE 0.5 MG/2.5 ML NEB SOLUTION NEB PRN ×6 (03:53→23:34)
[2021-04-10 04:00] VITALS: BP 147/66
[2021-04-10 04:58] LABS: GLUCOSE,POINT OF CARE 94 MG/DL (70-110)
[2021-04-10 04:58] LABS: GLUCOSE,POINT OF CARE 149 MG/DL (70-110)
[2021-04-10] MEDS: METOCLOPRAMIDE HCL 5 MG/ML 2 ML VIAL IVP SCH ×5 (06:19→23:56)
[2021-04-10 06:46] LABS: GLUCOSE,POINT OF CARE 101 MG/DL (70-110)
[2021-04-10 06:59] LABS: HEMOGLOBIN 8.9 g/dL (13.5-17.5); MEAN CORPUSCULAR HEMOGLOBIN 28.3 pg (26.0-34.0); MEAN CORPUSCULAR HGB CONC 33.1 G/dL (31.0-37.0); MEAN CORPUSCULAR VOLUME 85 fL (80-100); PLATELET COUNT (AUTO) 163 K/uL (150-450); RED BLOOD CELL COUNT(AUTO) 3.16 MIL/uL (4.50-5.90); RED CELL DISTRIBUTION WIDTH 17.6 % (11.5-14.5)
[2021-04-10 07:02] LABS: ANION GAP 11 mmol/L (8-16); CALCIUM, TOTAL 8.6 mg/dL (8.8-10.5); CARBON DIOXIDE 29 mmol/L (22-29); CHLORIDE 109 mmol/L (98-107); CREATININE 0.22 mg/dL (0.60-1.30); GLUCOSE,RANDOM 96 mg/dL (70-110); SODIUM SERUM 149 mmol/L (136-145); UREA NITROGEN, BLOOD 29 mg/dL (7-18)
[2021-04-10 07:05] LABS: GLOMERULAR FILTR. RATE CALC > 60 mL/min (>60)
[2021-04-10] MEDS: ALBUMIN HUMAN 25%-25GM/100ML 100 ML IV SCH ×3 (07:13→23:56)
[2021-04-10 07:18] LABS: BAND NEUTROPHILS % (MANUAL) 19 % (0-5); EOSINOPHILS % (MANUAL) 1 % (1-6); LYMPHOCYTES % (MANUAL) 7 % (22-44); MONOCYTES % (MANUAL) 4 % (2-9); SEGMENTED NEUTROPHILS % 69 % (40-70)
[2021-04-10 08:00] VITALS: BP 130/60
[2021-04-10] MEDS: HYPROMELLOSE 0.5% 15 ML OPHTHALMIC SOLUTION OU SCH ×2 (09:26→22:26)
[2021-04-10] MEDS: HYDROCORTISONE SOD SUCC 100 MG/2 ML VIAL IVP SCH (09:26)
[2021-04-10] MEDS: PANTOPRAZOLE SODIUM 40 MG/VIAL IVP SCH (09:27)
[2021-04-10] MEDS: HEPARIN SODIUM,PORCINE 5,000 UNITS/ML VIAL SQ SCH ×4 (09:29→23:57)
[2021-04-10] MEDS ORDERED: 0.9% SODIUM CHLORIDE 5 ML NEB SOLUTION NEB ONE (09:29)
[2021-04-10] MEDS: SODIUM,POTASSIUM PHOSPHATES POWDER PACKET PO SCH (09:34)
[2021-04-10] MEDS: ETHYL ALCOHOL 62% ANTISEPTIC NASAL INHALANT 0.6 ML AMPUL NASAL SCH ×2 (09:41→20:19)
[2021-04-10] MEDS ORDERED: ROCURONIUM BROMIDE 10 MG/ML 5 ML VIAL IVP ONE (10:45)
[2021-04-10 12:00] VITALS: BP 130/60
[2021-04-10] MEDS: CefTRIAXone 1 GM/DEXTROSE 50 ML IV SCH (12:50)
[2021-04-10 16:00] VITALS: BP 156/71
[2021-04-10 17:11] LABS: GLUCOSE,POINT OF CARE 73 MG/DL (70-110)
[2021-04-10 17:11] LABS: GLUCOSE,POINT OF CARE 186 MG/DL (70-110)
[2021-04-10] MEDS: POTASSIUM CHL 10 MEQ/WATER 50 ML IV PRN ×4 (17:21→19:26)
[2021-04-10] MEDS: INSULIN LISPRO 100 UNITS/ML SQ PRN (19:31)
[2021-04-10 20:00] VITALS: BP 155/72
[2021-04-10 20:09] LABS: GLUCOSE,POINT OF CARE 151 MG/DL (70-110)
[2021-04-10] MEDS: INSULIN GLARGINE,HUM.REC.ANLOG 100 UNITS/ML SQ SCH (22:28)
[2021-04-10] MEDS: HydrALAZINE HCL 20 MG/ML VIAL IVP PRN (22:47)
[2021-04-10 23:20] LABS: BASOPHILS % (AUTO) 0.5 % (0.0-2.0); EOSINOPHILS % (AUTO) 0.2 % (1.0-6.0); HEMATOCRIT 28.6 % (41-53); HEMOGLOBIN 9.5 g/dL (13.5-17.5); LYMPHOCYTES # (AUTO) 0.6 K/uL (1.0-4.8); LYMPHOCYTES % (AUTO) 7.7 % (22.0-44.0); MEAN CORPUSCULAR HEMOGLOBIN 28.1 pg (26.0-34.0); MEAN CORPUSCULAR HGB CONC 33.3 G/dL (31.0-37.0); MEAN CORPUSCULAR VOLUME 84 fL (80-100); MONOCYTES # (AUTO) 0.2 K/uL (0.1-1.0); NEUTROPHILS # (AUTO) 6.9 K/uL (1.8-7.7); NEUTROPHILS % (AUTO) 88.6 % (40.0-70.0); PLATELET COUNT (AUTO) 198 K/uL (150-450); RED BLOOD CELL COUNT(AUTO) 3.39 MIL/uL (4.50-5.90)
[2021-04-10 23:57] LABS: GLUCOSE,POINT OF CARE 113 MG/DL (70-110)
[2021-04-11] VITALS: BP 167/72
[2021-04-11] MEDS: FentaNYL CIT 1000MCG/0.9% NACL 100 ML IV PRN ×3 (00:54→10:37)
[2021-04-11] MEDS: INSULIN LISPRO 100 UNITS/ML SQ PRN ×3 (02:03→18:34)
[2021-04-11] MEDS ORDERED: SODIUM CHLORIDE 0.9% 500 ML IV ONE (02:10)
[2021-04-11] MEDS ORDERED: SODIUM CHLORIDE 0.9% 250 ML IV ONE (02:10)
[2021-04-11 03:20] LABS: GLUCOSE,POINT OF CARE 126 MG/DL (70-110)
[2021-04-11] MEDS: ACETYLCYSTEINE 10% 100 MG/ML 4 ML NEB SOLUTION NEB SCH ×6 (03:43→23:11)
[2021-04-11] MEDS: ALBUTEROL SULFATE 2.5 MG/0.5 ML NEB SOLUTION NEB PRN ×6 (03:43→23:11)
[2021-04-11] MEDS: IPRATROPIUM BROMIDE 0.5 MG/2.5 ML NEB SOLUTION NEB PRN ×5 (03:43→23:11)
[2021-04-11 04:00] VITALS: BP 145/65
[2021-04-11] MEDS: PROPOFOL 1000 MG/ISO-OSM 100 ML IV PRN ×3 (04:44→18:33)
[2021-04-11 05:13] LABS: BASOPHILS % (AUTO) 0.4 % (0.0-2.0); EOSINOPHILS % (AUTO) 0.4 % (1.0-6.0); HEMATOCRIT 27.6 % (41-53); HEMOGLOBIN 9.1 g/dL (13.5-17.5); LYMPHOCYTES # (AUTO) 0.7 K/uL (1.0-4.8); LYMPHOCYTES % (AUTO) 7.6 % (22.0-44.0); MEAN CORPUSCULAR HGB CONC 33.1 G/dL (31.0-37.0); MEAN CORPUSCULAR VOLUME 85 fL (80-100); MONOCYTES # (AUTO) 0.2 K/uL (0.1-1.0); MONOCYTES % (AUTO) 2.7 % (2.0-9.0); NEUTROPHILS # (AUTO) 7.6 K/uL (1.8-7.7); PLATELET COUNT (AUTO) 197 K/uL (150-450); RED BLOOD CELL COUNT(AUTO) 3.26 MIL/uL (4.50-5.90); RED CELL DISTRIBUTION WIDTH 17.6 % (11.5-14.5)
[2021-04-11] MEDS: METOCLOPRAMIDE HCL 5 MG/ML 2 ML VIAL IVP SCH ×3 (05:17→18:31)
[2021-04-11] MEDS: HydrALAZINE HCL 20 MG/ML VIAL IVP PRN (05:17)
[2021-04-11 05:24] LABS: ANION GAP 9 mmol/L (8-16); CALCIUM, TOTAL 8.7 mg/dL (8.8-10.5); CARBON DIOXIDE 30 mmol/L (22-29); CHLORIDE 112 mmol/L (98-107); CREATININE 0.33 mg/dL (0.60-1.30); GLUCOSE,RANDOM 124 mg/dL (70-110); PHOSPHORUS 2.4 mg/dL (2.5-4.9); SODIUM SERUM 151 mmol/L (136-145); UREA NITROGEN, BLOOD 26 mg/dL (7-18)
[2021-04-11 05:29] LABS: GLOMERULAR FILTR. RATE CALC > 60 mL/min (>60); POTASSIUM 2.8 mmol/L (3.5-5.1)
[2021-04-11 05:54] LABS: NEUTROPHILS % (AUTO) 88.9 % (40.0-70.0)
[2021-04-11] MEDS: POTASSIUM CHL 10 MEQ/WATER 50 ML IV PRN ×4 (05:59→08:35)
[2021-04-11] MEDS: ALBUMIN HUMAN 25%-25GM/100ML 100 ML IV SCH ×2 (06:00→15:00)
[2021-04-11] MEDS: ACETAMINOPHEN 650 MG/20.3 ML SOLUTION UDCUP PEG PRN ×2 (06:00)
[2021-04-11] MEDS: HEPARIN SODIUM,PORCINE 5,000 UNITS/ML VIAL SQ SCH ×2 (07:50→16:00)
[2021-04-11 08:00] VITALS: BP 124/62
[2021-04-11] MEDS ORDERED: POTASSIUM CHL 10 MEQ/WATER 50 ML IV SCH (08:30)
[2021-04-11] MEDS ORDERED: POTASSIUM CHLORIDE 20 MEQ ER TABLET PO ONE (08:30)
[2021-04-11] MEDS: SODIUM,POTASSIUM PHOSPHATES POWDER PACKET PO SCH (08:35)
[2021-04-11] MEDS: ETHYL ALCOHOL 62% ANTISEPTIC NASAL INHALANT 0.6 ML AMPUL NASAL SCH ×2 (08:36→20:10)
[2021-04-11] MEDS: HYDROCORTISONE SOD SUCC 100 MG/2 ML VIAL IVP SCH (08:36)
[2021-04-11] MEDS: HYPROMELLOSE 0.5% 15 ML OPHTHALMIC SOLUTION OU SCH ×2 (09:00→20:10)
[2021-04-11] MEDS: PANTOPRAZOLE SODIUM 40 MG/VIAL IVP SCH (09:01)
[2021-04-11] MEDS ORDERED: RINGERS SOLUTION,LACTATED 1,000 ML IV ONE (11:23)
[2021-04-11 12:00] VITALS: BP 117/57
[2021-04-11] MEDS: CefTRIAXone 1 GM/DEXTROSE 50 ML IV SCH (12:33)
[2021-04-11 16:00] VITALS: BP 124/62
[2021-04-11 18:10] LABS: ANION GAP 11 mmol/L (8-16); CALCIUM, TOTAL 8.1 mg/dL (8.8-10.5); CARBON DIOXIDE 27 mmol/L (22-29); CHLORIDE 110 mmol/L (98-107); CREATININE 0.23 mg/dL (0.60-1.30); GLUCOSE,RANDOM 236 mg/dL (70-110); POTASSIUM 3.6 mmol/L (3.5-5.1); SODIUM SERUM 148 mmol/L (136-145); UREA NITROGEN, BLOOD 33 mg/dL (7-18)
[2021-04-11 18:12] LABS: GLOMERULAR FILTR. RATE CALC > 60 mL/min (>60)
[2021-04-11] MEDS: DOXYCYCLINE HYCLATE 100 MG in DEXTROSE 5%-WATER 100 ML IV SCH (18:39)
[2021-04-11 20:00] VITALS: BP 138/56
[2021-04-11] MEDS: INSULIN GLARGINE,HUM.REC.ANLOG 100 UNITS/ML SQ SCH (21:32)
[2021-04-11 23:29] LABS: GLUCOSE,POINT OF CARE 176 MG/DL (70-110)
[2021-04-11 23:29] LABS: GLUCOSE,POINT OF CARE 219 MG/DL (70-110)
[2021-04-11 23:29] LABS: GLUCOSE,POINT OF CARE 221 MG/DL (70-110)
[2021-04-12] VITALS: BP 138/56
[2021-04-12] MEDS: ALBUMIN HUMAN 25%-25GM/100ML 100 ML IV SCH ×4 (00:30→21:52)
[2021-04-12] MEDS: METOCLOPRAMIDE HCL 5 MG/ML 2 ML VIAL IVP SCH ×4 (00:31→18:55)
[2021-04-12] MEDS: PROPOFOL 1000 MG/ISO-OSM 100 ML IV PRN (03:16)
[2021-04-12] MEDS: IPRATROPIUM BROMIDE 0.5 MG/2.5 ML NEB SOLUTION NEB PRN ×6 (03:47→22:57)
[2021-04-12] MEDS: ALBUTEROL SULFATE 2.5 MG/0.5 ML NEB SOLUTION NEB PRN ×6 (03:47→22:57)
[2021-04-12] MEDS: ACETYLCYSTEINE 10% 100 MG/ML 4 ML NEB SOLUTION NEB SCH ×6 (03:47→22:57)
[2021-04-12 04:00] VITALS: BP 152/61
[2021-04-12 05:10] LABS: ALANINE AMINOTRANSFERASE 40 U/L (12-78); ALKALINE PHOSPHATASE 208 U/L (46-116); ANION GAP 5 mmol/L (8-16); ASPARTATE AMINOTRANSFERASE 29 U/L (15-37); CALCIUM, TOTAL 8.2 mg/dL (8.8-10.5); CARBON DIOXIDE 30 mmol/L (22-29); CHLORIDE 110 mmol/L (98-107); CREATININE 0.32 mg/dL (0.60-1.30); GLUCOSE,RANDOM 131 mg/dL (70-110); SODIUM SERUM 145 mmol/L (136-145); TOTAL PROTEIN, SERUM 6.4 g/dL (6.4-8.2); UREA NITROGEN, BLOOD 30 mg/dL (7-18)
[2021-04-12 05:22] LABS: GLOMERULAR FILTR. RATE CALC > 60 mL/min (>60); POTASSIUM 2.9 mmol/L (3.5-5.1)
[2021-04-12] MEDS: POTASSIUM CHL 10 MEQ/WATER 50 ML IV PRN ×4 (05:51→10:00)
[2021-04-12] MEDS: DOXYCYCLINE HYCLATE 100 MG in DEXTROSE 5%-WATER 100 ML IV SCH (05:52)
[2021-04-12 06:12] LABS: GLUCOSE,POINT OF CARE 146 MG/DL (70-110)
[2021-04-12] MEDS: INSULIN LISPRO 100 UNITS/ML SQ PRN ×3 (06:13→17:43)
[2021-04-12 08:00] VITALS: BP 152/65
[2021-04-12] MEDS: HEPARIN SODIUM,PORCINE 5,000 UNITS/ML VIAL SQ SCH ×4 (08:00→16:00)
[2021-04-12] MEDS: SODIUM,POTASSIUM PHOSPHATES POWDER PACKET PO SCH (08:27)
[2021-04-12] MEDS: HYDROCORTISONE SOD SUCC 100 MG/2 ML VIAL IVP SCH (08:27)
[2021-04-12] MEDS: PANTOPRAZOLE SODIUM 40 MG/VIAL IVP SCH (08:28)
[2021-04-12] MEDS ORDERED: POTASSIUM CHL 10 MEQ/WATER 50 ML IV SCH (08:30)
[2021-04-12] MEDS: HYPROMELLOSE 0.5% 15 ML OPHTHALMIC SOLUTION OU SCH ×2 (08:32→21:16)
[2021-04-12] MEDS: ETHYL ALCOHOL 62% ANTISEPTIC NASAL INHALANT 0.6 ML AMPUL NASAL SCH ×2 (08:32→21:07)
[2021-04-12 12:00] VITALS: BP 167/62
[2021-04-12] MEDS: CefTRIAXone 1 GM/DEXTROSE 50 ML IV SCH (13:16)
[2021-04-12] MEDS: DEXMEDETOMIDINE HCL 400 MCG in SODIUM CHLORIDE 0.9% 96 ML IV PRN ×2 (13:16→23:05)
[2021-04-12 13:35] LABS: GLUCOSE,POINT OF CARE 123 MG/DL (70-110)
[2021-04-12 13:42] LABS: ANION GAP 9 mmol/L (8-16); CALCIUM, TOTAL 8.4 mg/dL (8.8-10.5); CARBON DIOXIDE 29 mmol/L (22-29); CHLORIDE 111 mmol/L (98-107); CREATININE 0.29 mg/dL (0.60-1.30); GLUCOSE,RANDOM 164 mg/dL (70-110); POTASSIUM 4.8 mmol/L (3.5-5.1); SODIUM SERUM 149 mmol/L (136-145); UREA NITROGEN, BLOOD 30 mg/dL (7-18)
[2021-04-12 13:43] LABS: GLOMERULAR FILTR. RATE CALC > 60 mL/min (>60)
[2021-04-12 16:00] VITALS: BP 146/55
[2021-04-12] MEDS: MORPHINE SULFATE 2 MG/ML SYRINGE IVP PRN (17:43)
[2021-04-12] MEDS ORDERED: FUROSEMIDE 40 MG/4 ML VIAL IVP ONE (19:15)
[2021-04-12 19:45] LABS: GLUCOSE,POINT OF CARE 174 MG/DL (70-110)
[2021-04-12 19:45] LABS: GLUCOSE,POINT OF CARE 152 MG/DL (70-110)
[2021-04-12 20:00] VITALS: BP 158/64
[2021-04-12] MEDS: INSULIN GLARGINE,HUM.REC.ANLOG 100 UNITS/ML SQ SCH (21:13)
[2021-04-12 22:03] LABS: GLUCOSE,POINT OF CARE 103 MG/DL (70-110)
[2021-04-12] MEDS: ACETAMINOPHEN 650 MG/20.3 ML SOLUTION UDCUP PEG PRN (22:35)
[2021-04-13] VITALS: BP 147/57
[2021-04-13] MEDS: HEPARIN SODIUM,PORCINE 5,000 UNITS/ML VIAL SQ SCH ×3 (00:36→16:00)
[2021-04-13] MEDS: METOCLOPRAMIDE HCL 5 MG/ML 2 ML VIAL IVP SCH ×4 (00:36→17:34)
[2021-04-13] MEDS: INSULIN LISPRO 100 UNITS/ML SQ PRN ×4 (01:21→18:18)
[2021-04-13 02:41] LABS: GLUCOSE,POINT OF CARE 149 MG/DL (70-110)
[2021-04-13] MEDS: MORPHINE SULFATE 2 MG/ML SYRINGE IVP PRN ×3 (03:39→14:38)
[2021-04-13] MEDS: IPRATROPIUM BROMIDE 0.5 MG/2.5 ML NEB SOLUTION NEB PRN ×4 (03:56→23:27)
[2021-04-13] MEDS: ACETYLCYSTEINE 10% 100 MG/ML 4 ML NEB SOLUTION NEB SCH ×6 (03:56→23:27)
[2021-04-13] MEDS: ALBUTEROL SULFATE 2.5 MG/0.5 ML NEB SOLUTION NEB PRN ×4 (03:56→23:27)
[2021-04-13 04:00] VITALS: BP 157/65
[2021-04-13 05:58] LABS: BASOPHILS % (AUTO) 0.4 % (0.0-2.0); EOSINOPHILS % (AUTO) 0.6 % (1.0-6.0); HEMATOCRIT 23.7 % (41-53); HEMOGLOBIN 7.8 g/dL (13.5-17.5); LYMPHOCYTES # (AUTO) 0.6 K/uL (1.0-4.8); LYMPHOCYTES % (AUTO) 8.8 % (22.0-44.0); MEAN CORPUSCULAR VOLUME 85 fL (80-100); MONOCYTES # (AUTO) 0.5 K/uL (0.1-1.0); MONOCYTES % (AUTO) 6.7 % (2.0-9.0); NEUTROPHILS # (AUTO) 5.7 K/uL (1.8-7.7); NEUTROPHILS % (AUTO) 83.5 % (40.0-70.0); PLATELET COUNT (AUTO) 160 K/uL (150-450); RED BLOOD CELL COUNT(AUTO) 2.79 MIL/uL (4.50-5.90); RED CELL DISTRIBUTION WIDTH 18.1 % (11.5-14.5)
[2021-04-13 06:09] LABS: ANION GAP 18 mmol/L (8-16); CALCIUM, TOTAL 8.4 mg/dL (8.8-10.5); CARBON DIOXIDE 27 mmol/L (22-29); CHLORIDE 109 mmol/L (98-107); CREATININE 0.34 mg/dL (0.60-1.30); GLUCOSE,RANDOM 173 mg/dL (70-110); PHOSPHORUS 2.2 mg/dL (2.5-4.9); POTASSIUM 3.2 mmol/L (3.5-5.1); SODIUM SERUM 154 mmol/L (136-145); UREA NITROGEN, BLOOD 31 mg/dL (7-18)
[2021-04-13 06:18] LABS: GLOMERULAR FILTR. RATE CALC > 60 mL/min (>60)
[2021-04-13] MEDS: ACETAMINOPHEN 650 MG/20.3 ML SOLUTION UDCUP PEG PRN ×3 (07:49→21:13)
[2021-04-13 08:00] VITALS: BP 127/57
[2021-04-13 08:48] LABS: GLUCOSE,POINT OF CARE 159 MG/DL (70-110)
[2021-04-13] MEDS: ALBUMIN HUMAN 25%-25GM/100ML 100 ML IV SCH ×3 (08:53→23:18)
[2021-04-13] MEDS: DEXTROSE 5%-WATER 1,000 ML IV SCH (08:55)
[2021-04-13] MEDS: PANTOPRAZOLE SODIUM 40 MG/VIAL IVP SCH (08:55)
[2021-04-13] MEDS: HYDROCORTISONE SOD SUCC 100 MG/2 ML VIAL IVP SCH (08:55)
[2021-04-13] MEDS: HYPROMELLOSE 0.5% 15 ML OPHTHALMIC SOLUTION OU SCH ×2 (08:55→21:10)
[2021-04-13] MEDS: ETHYL ALCOHOL 62% ANTISEPTIC NASAL INHALANT 0.6 ML AMPUL NASAL SCH ×2 (08:56→21:09)
[2021-04-13] MEDS: SODIUM,POTASSIUM PHOSPHATES POWDER PACKET PO SCH (08:56)
[2021-04-13] MEDS: POTASSIUM CHL 10 MEQ/WATER 50 ML IV PRN ×3 (09:38→11:00)
[2021-04-13] MEDS ORDERED: ALBUMIN HUMAN 5%-12.5GM/250ML 250 ML IV ONE (10:00)
[2021-04-13] MEDS: FentaNYL CIT 1000MCG/0.9% NACL 100 ML IV PRN (10:07)
[2021-04-13 10:41] LABS: ABG A-A DIFF O2 176.8 mmHg (10-20.0); ABG BASE EXCESS 2.9 mmol/L (-2.0-3.0); ABG CARBOXYHEMOGLOBIN 1.3 % (0.0-1.5); ABG HCO3 26.9 mmol/L (22.0-26.0); ABG METHEMOGLOBIN 0.3 % (0.0-1.5); ABG OXYGEN SATURATION 97.5 % (95.0-98.0); ABG OXYHEMOGLOBIN 95.9 % (94.0-100.0); ABG PCO2 39 mmHg (35-45); ABG PH 7.451 (7.35-7.450); PO2, ARTERIAL BG 98.5 mmHg (75.0-83.0); SOURCE, BLOOD GAS ARTERIAL; TEMPERATURE, FAHRENHEIT, BG 99.8 FAHREN (96.0-98.6)
[2021-04-13 10:42] LABS: O2 DEVICE,BLOOD GAS VENTILATOR (ROOM AIR); PEEP,BG 5 cm H2O; SITE, BLOOD GAS ARTERIAL LINE; VT, ABG 430 ml
[2021-04-13] MEDS: FentaNYL 25 MCG/HOUR PATCH TD SCH (11:15)
[2021-04-13 12:00] VITALS: BP 125/57
[2021-04-13] MEDS: CefTRIAXone 1 GM/DEXTROSE 50 ML IV SCH (13:16)
[2021-04-13 13:52] LABS: ANION GAP 16 mmol/L (8-16); CALCIUM, TOTAL 8.5 mg/dL (8.8-10.5); CARBON DIOXIDE 27 mmol/L (22-29); CHLORIDE 110 mmol/L (98-107); CREATININE 0.35 mg/dL (0.60-1.30); GLOMERULAR FILTR. RATE CALC > 60 mL/min (>60); GLUCOSE,RANDOM 197 mg/dL (70-110); POTASSIUM 3.6 mmol/L (3.5-5.1); SODIUM SERUM 153 mmol/L (136-145); UREA NITROGEN, BLOOD 33 mg/dL (7-18)
[2021-04-13] MEDS ORDERED: VANCOMYCIN HCL 1.25 GM in DEXTROSE 5%-WATER 250 ML IV ONE (14:00)
[2021-04-13] MEDS: DEXMEDETOMIDINE HCL 400 MCG in SODIUM CHLORIDE 0.9% 96 ML IV PRN (14:39)
[2021-04-13] MEDS: HydrALAZINE HCL 20 MG/ML VIAL IVP PRN ×2 (15:45→21:48)
[2021-04-13 16:00] VITALS: BP 177/68
[2021-04-13] MEDS: PROPOFOL 1000 MG/ISO-OSM 100 ML IV PRN ×2 (16:14→21:20)
[2021-04-13 16:59] LABS: HEMATOCRIT 21.6 % (41-53)
[2021-04-13] MEDS: MEROPENEM 1 GM in SODIUM CHLORIDE 0.9% 100 ML IV SCH (17:33)
[2021-04-13 17:34] LABS: GLUCOSE,POINT OF CARE 175 MG/DL (70-110)
[2021-04-13 18:16] LABS: APPEARANCE,URINE TURBID (CLEAR); BILIRUBIN,URINE NEGATIVE (NEGATIVE); GLUCOSE, URINE (UA) 250 mg/dL (NEGATIVE); KETONES,URINE NEGATIVE (NEGATIVE); LEUKOCYTE ESTERASE ,URINE MODERATE (NEGATIVE); NITRATE,URINE NEGATIVE (NEGATIVE); OCCULT BLOOD,URINE SMALL (NEGATIVE); PROTEIN,URINE POS 1+ (NEGATIVE)
[2021-04-13 18:35] LABS: YEAST,URINE Many /HPF (None Seen)
[2021-04-13 18:36] LABS: BACTERIA,URINE Few /HPF (None Seen)
[2021-04-13 20:00] VITALS: BP 115/48
[2021-04-13 20:06] LABS: S PNEUMO SOURCE Urine; STREP PNEUMONIAE AG URINE Negative (Negative)
[2021-04-13 20:52] LABS: GLUCOSE,POINT OF CARE 222 MG/DL (70-110)
[2021-04-13 21:06] LABS: LEGIONELLA PNEUMO AG URINE Negative (Negative)
[2021-04-13] MEDS: METOPROLOL TARTRATE 25 MG TABLET PO SCH (21:10)
[2021-04-13] MEDS: INSULIN GLARGINE,HUM.REC.ANLOG 100 UNITS/ML SQ SCH (21:12)
[2021-04-14] VITALS: BP 126/58
[2021-04-14] MEDS: MEROPENEM 1 GM in SODIUM CHLORIDE 0.9% 100 ML IV SCH ×3 (00:13→17:00)
[2021-04-14] MEDS: HEPARIN SODIUM,PORCINE 5,000 UNITS/ML VIAL SQ SCH ×3 (00:13→16:00)
[2021-04-14] MEDS: METOCLOPRAMIDE HCL 5 MG/ML 2 ML VIAL IVP SCH ×4 (00:13→19:10)
[2021-04-14] MEDS: INSULIN LISPRO 100 UNITS/ML SQ PRN ×4 (00:15→18:28)
[2021-04-14] MEDS: PROPOFOL 1000 MG/ISO-OSM 100 ML IV PRN ×5 (02:00→23:01)
[2021-04-14] MEDS: MORPHINE SULFATE 2 MG/ML SYRINGE IVP PRN (02:01)
[2021-04-14] MEDS ORDERED: SODIUM CHLORIDE 0.9% 500 ML IV ONE ×3 (02:48→23:00)
[2021-04-14] MEDS ORDERED: SODIUM CHLORIDE 0.9% 250 ML IV ONE (02:48)
[2021-04-14] MEDS: ALBUTEROL SULFATE 2.5 MG/0.5 ML NEB SOLUTION NEB PRN ×5 (03:47→19:56)
[2021-04-14] MEDS: IPRATROPIUM BROMIDE 0.5 MG/2.5 ML NEB SOLUTION NEB PRN ×5 (03:47→19:56)
[2021-04-14] MEDS: ACETYLCYSTEINE 10% 100 MG/ML 4 ML NEB SOLUTION NEB SCH ×6 (03:47→23:00)
[2021-04-14 04:00] VITALS: BP 150/53
[2021-04-14] MEDS: DEXTROSE 5%-WATER 1,000 ML IV SCH ×2 (04:12→23:28)
[2021-04-14 05:14] LABS: BASOPHILS % (AUTO) 0.5 % (0.0-2.0); EOSINOPHILS % (AUTO) 1.4 % (1.0-6.0); HEMATOCRIT 23.3 % (41-53); HEMOGLOBIN 7.5 g/dL (13.5-17.5); LYMPHOCYTES # (AUTO) 0.5 K/uL (1.0-4.8); LYMPHOCYTES % (AUTO) 6.5 % (22.0-44.0); MEAN CORPUSCULAR HEMOGLOBIN 27.6 pg (26.0-34.0); MEAN CORPUSCULAR HGB CONC 32.2 G/dL (31.0-37.0); MEAN CORPUSCULAR VOLUME 86 fL (80-100); MONOCYTES # (AUTO) 0.6 K/uL (0.1-1.0); MONOCYTES % (AUTO) 7.2 % (2.0-9.0); NEUTROPHILS # (AUTO) 6.9 K/uL (1.8-7.7); NEUTROPHILS % (AUTO) 84.4 % (40.0-70.0); PLATELET COUNT (AUTO) 175 K/uL (150-450); RED BLOOD CELL COUNT(AUTO) 2.72 MIL/uL (4.50-5.90); RED CELL DISTRIBUTION WIDTH 18.7 % (11.5-14.5)
[2021-04-14 05:29] LABS: ALANINE AMINOTRANSFERASE 41 U/L (12-78); ALBUMIN 4.2 g/dL (3.4-5.0); ALKALINE PHOSPHATASE 219 U/L (46-116); ANION GAP 11 mmol/L (8-16); ASPARTATE AMINOTRANSFERASE 31 U/L (15-37); BILIRUBIN,TOTAL 1.8 mg/dL (0.1-1.0); C-REACTIVE PROTEIN QUANT 21.17 mg/dL (0.00-0.30); CALCIUM, TOTAL 8.1 mg/dL (8.8-10.5); CARBON DIOXIDE 29 mmol/L (22-29); CHLORIDE 106 mmol/L (98-107); CREATININE 0.44 mg/dL (0.60-1.30); GLUCOSE,RANDOM 173 mg/dL (70-110); SODIUM SERUM 146 mmol/L (136-145); TOTAL PROTEIN, SERUM 6.5 g/dL (6.4-8.2); UREA NITROGEN, BLOOD 40 mg/dL (7-18)
[2021-04-14 05:34] LABS: GLOMERULAR FILTR. RATE CALC > 60 mL/min (>60)
[2021-04-14] MEDS: ALBUMIN HUMAN 25%-25GM/100ML 100 ML IV SCH ×3 (07:16→23:29)
[2021-04-14 07:24] LABS: GLUCOSE,POINT OF CARE 143 MG/DL (70-110)
[2021-04-14 07:24] LABS: GLUCOSE,POINT OF CARE 160 MG/DL (70-110)
[2021-04-14 07:46] LABS: GLUCOSE,POINT OF CARE 168 MG/DL (70-110)
[2021-04-14 08:00] VITALS: BP 124/50
[2021-04-14] MEDS: HYDROCORTISONE SOD SUCC 100 MG/2 ML VIAL IVP SCH (08:52)
[2021-04-14] MEDS: ETHYL ALCOHOL 62% ANTISEPTIC NASAL INHALANT 0.6 ML AMPUL NASAL SCH ×2 (08:52→20:30)
[2021-04-14] MEDS: PANTOPRAZOLE SODIUM 40 MG/VIAL IVP SCH (08:52)
[2021-04-14] MEDS: SODIUM,POTASSIUM PHOSPHATES POWDER PACKET PO SCH (08:52)
[2021-04-14] MEDS: HYPROMELLOSE 0.5% 15 ML OPHTHALMIC SOLUTION OU SCH ×2 (08:55→20:31)
[2021-04-14] MEDS: METOPROLOL TARTRATE 25 MG TABLET PO SCH ×2 (08:55→20:31)
[2021-04-14] MEDS ORDERED: CASPOFUNGIN ACETATE 70 MG in SODIUM CHLORIDE 0.9% 250 ML IV ONE (10:30)
[2021-04-14] MEDS: FentaNYL CIT 1000MCG/0.9% NACL 100 ML IV PRN (10:53)
[2021-04-14] MEDS ORDERED: NACL ISOOSM IV ONE (11:00)
[2021-04-14] MEDS ORDERED: FLUCONAZOLE IV ONE (11:00)
[2021-04-14] MEDS: POTASSIUM CHL 10 MEQ/WATER 50 ML IV PRN ×3 (11:43→12:59)
[2021-04-14 12:00] VITALS: BP 118/58
[2021-04-14 12:13] LABS: GLUCOSE,POINT OF CARE 209 MG/DL (70-110)
[2021-04-14] MEDS ORDERED: POTASSIUM CHLORIDE 20 MEQ ER TABLET PO ONE (15:15)
[2021-04-14 16:00] VITALS: BP 117/56
[2021-04-14 18:45] LABS: GLUCOSE,POINT OF CARE 192 MG/DL (70-110)
[2021-04-14 20:00] VITALS: BP 115/53
[2021-04-14] MEDS: INSULIN GLARGINE,HUM.REC.ANLOG 100 UNITS/ML SQ SCH (20:32)
[2021-04-14] MEDS ORDERED: NOREPINEPHRINE 4 MG/D5%-WATER 0 ML IV ONE (21:42)
[2021-04-14] MEDS ORDERED: VASOPRESSIN 40 UNITS in DEXTROSE 5%-WATER 98 ML IV PRN (22:00)
[2021-04-14] MEDS ORDERED: PHENYLEPHRINE 200 MG/D5%-WATER 250 ML IV PRN (22:00)
[2021-04-14] MEDS: PHENYLEPHRINE 200 MG/D5%-WATER 250 ML IV PRN (22:40)
[2021-04-14 22:41] LABS: HEMATOCRIT 21.2 % (41-53); MEAN CORPUSCULAR HEMOGLOBIN 27.7 pg (26.0-34.0); MEAN CORPUSCULAR HGB CONC 32.1 G/dL (31.0-37.0); MEAN CORPUSCULAR VOLUME 86 fL (80-100); PLATELET COUNT (AUTO) 159 K/uL (150-450); RED BLOOD CELL COUNT(AUTO) 2.46 MIL/uL (4.50-5.90); RED CELL DISTRIBUTION WIDTH 18.8 % (11.5-14.5)
[2021-04-14 22:46] LABS: HEMOGLOBIN 6.8 g/dL (13.5-17.5)
[2021-04-14 23:03] LABS: BAND NEUTROPHILS % (MANUAL) 20 % (0-5); LYMPHOCYTES % (MANUAL) 7 % (22-44); MONOCYTES % (MANUAL) 4 % (2-9); SEGMENTED NEUTROPHILS % 69 % (40-70)
[2021-04-14 23:05] LABS: PLATELET MORPHOLOGY COMMENT LARGE PLTS PRESENT; WBC MORPHOLOGY TOXIC GRANULATION
[2021-04-15] VITALS (13 sets, daily range): BP systolic 100–132; BP diastolic 43–63
[2021-04-15] MEDS ORDERED: SODIUM CHLORIDE 0.9% 250 ML IV ONE ×2 (00:28→20:38)
[2021-04-15] MEDS: MEROPENEM 1 GM in SODIUM CHLORIDE 0.9% 100 ML IV SCH ×3 (00:32→16:17)
[2021-04-15] MEDS: HEPARIN SODIUM,PORCINE 5,000 UNITS/ML VIAL SQ SCH ×3 (00:32→16:00)
[2021-04-15] MEDS: METOCLOPRAMIDE HCL 5 MG/ML 2 ML VIAL IVP SCH ×4 (00:33→18:00)
[2021-04-15] MEDS: PROPOFOL 1000 MG/ISO-OSM 100 ML IV PRN ×6 (02:04→21:53)
[2021-04-15] MEDS: ACETYLCYSTEINE 10% 100 MG/ML 4 ML NEB SOLUTION NEB SCH (03:00)
[2021-04-15] MEDS: ACETAMINOPHEN 650 MG/20.3 ML SOLUTION UDCUP PEG PRN (03:34)
[2021-04-15] MEDS: FentaNYL CIT 1000MCG/0.9% NACL 100 ML IV PRN ×2 (03:56→14:27)
[2021-04-15 05:21] LABS: HEMATOCRIT 25.1 % (41-53); HEMOGLOBIN 8.2 g/dL (13.5-17.5); MEAN CORPUSCULAR HEMOGLOBIN 28.5 pg (26.0-34.0); MEAN CORPUSCULAR HGB CONC 32.8 G/dL (31.0-37.0); MEAN CORPUSCULAR VOLUME 87 fL (80-100); PLATELET COUNT (AUTO) 146 K/uL (150-450); RED BLOOD CELL COUNT(AUTO) 2.88 MIL/uL (4.50-5.90); RED CELL DISTRIBUTION WIDTH 18.1 % (11.5-14.5)
[2021-04-15 05:48] LABS: ALANINE AMINOTRANSFERASE 37 U/L (12-78); ALBUMIN 4.1 g/dL (3.4-5.0); ALKALINE PHOSPHATASE 212 U/L (46-116); ANION GAP 11 mmol/L (8-16); ASPARTATE AMINOTRANSFERASE 36 U/L (15-37); BILIRUBIN,TOTAL 2.2 mg/dL (0.1-1.0); C-REACTIVE PROTEIN QUANT 24.94 mg/dL (0.00-0.30); CALCIUM, TOTAL 7.8 mg/dL (8.8-10.5); CARBON DIOXIDE 26 mmol/L (22-29); CHLORIDE 103 mmol/L (98-107); CREATININE 0.61 mg/dL (0.60-1.30); GLOMERULAR FILTR. RATE CALC > 60 mL/min (>60); GLUCOSE,RANDOM 133 mg/dL (70-110); POTASSIUM 3.7 mmol/L (3.5-5.1); SODIUM SERUM 140 mmol/L (136-145); TOTAL PROTEIN, SERUM 6.8 g/dL (6.4-8.2); UREA NITROGEN, BLOOD 50 mg/dL (7-18)
[2021-04-15] MEDS: ALBUMIN HUMAN 25%-25GM/100ML 100 ML IV SCH ×3 (07:01→23:10)
[2021-04-15] MEDS: METOPROLOL TARTRATE 25 MG TABLET PO SCH ×2 (08:37→20:46)
[2021-04-15 08:38] LABS: BAND NEUTROPHILS % (MANUAL) 32 % (0-5); LYMPHOCYTES % (MANUAL) 4 % (22-44); MONOCYTES % (MANUAL) 4 % (2-9); SEGMENTED NEUTROPHILS % 60 % (40-70)
[2021-04-15] MEDS: SODIUM,POTASSIUM PHOSPHATES POWDER PACKET PO SCH (08:38)
[2021-04-15] MEDS: ETHYL ALCOHOL 62% ANTISEPTIC NASAL INHALANT 0.6 ML AMPUL NASAL SCH ×2 (08:38→20:47)
[2021-04-15] MEDS: PANTOPRAZOLE SODIUM 40 MG/VIAL IVP SCH (08:38)
[2021-04-15] MEDS: HYDROCORTISONE SOD SUCC 100 MG/2 ML VIAL IVP SCH (08:40)
[2021-04-15] MEDS: HYPROMELLOSE 0.5% 15 ML OPHTHALMIC SOLUTION OU SCH ×2 (08:41→20:44)
[2021-04-15] MEDS: ALBUTEROL SULFATE 2.5 MG/0.5 ML NEB SOLUTION NEB PRN (08:56)
[2021-04-15] MEDS: IPRATROPIUM BROMIDE 0.5 MG/2.5 ML NEB SOLUTION NEB PRN (08:56)
[2021-04-15] MEDS ORDERED: ACETYLCYSTEINE 10% 100 MG/ML 4 ML NEB SOLUTION NEB PRN (09:00)
[2021-04-15] MEDS ORDERED: CASPOFUNGIN ACETATE 50 MG in SODIUM CHLORIDE 0.9% 250 ML IV SCH (11:00)
[2021-04-15] MEDS: FLUCONAZOLE 400 MG/NACL ISOOSM 200 ML IV SCH (11:29)
[2021-04-15] MEDS ORDERED: FUROSEMIDE 40 MG/4 ML VIAL IVP ONE (11:45)
[2021-04-15 12:30] LABS: GLUCOSE,POINT OF CARE 144 MG/DL (70-110)
[2021-04-15 12:30] LABS: GLUCOSE,POINT OF CARE 133 MG/DL (70-110)
[2021-04-15 12:30] LABS: GLUCOSE,POINT OF CARE 111 MG/DL (70-110)
[2021-04-15] MEDS: INSULIN LISPRO 100 UNITS/ML SQ PRN (13:02)
[2021-04-15 17:38] LABS: ABG BASE EXCESS -3.5 mmol/L (-2.0-3.0); ABG CARBOXYHEMOGLOBIN 0.2 % (0.0-1.5); ABG HCO3 20.9 mmol/L (22.0-26.0); ABG METHEMOGLOBIN 0.4 % (0.0-1.5); ABG OXYGEN CONTENT 12.5 mL/dL (15.0-23.0); ABG OXYGEN SATURATION 93.7 % (95.0-98.0); ABG OXYHEMOGLOBIN 93.1 % (94.0-100.0); ABG PCO2 74 mmHg (35-45); ABG PH 7.152 (7.35-7.450); ABG TOTAL HEMOGLOBIN 9.5 G/dL (12.0-18.0); O2 DEVICE,BLOOD GAS VENTILATOR (ROOM AIR); PEEP,BG 5 cm H2O; PO2, ARTERIAL BG 66.4 mmHg (75.0-83.0); SITE, BLOOD GAS ARTERIAL LINE; SOURCE, BLOOD GAS ARTERIAL; TEMPERATURE, FAHRENHEIT, BG 98.5 FAHREN (96.0-98.6); VT, ABG 430 ml
[2021-04-15 18:01] LABS: GLUCOSE,POINT OF CARE 153 MG/DL (70-110)
[2021-04-15] MEDS ORDERED: SODIUM CHLORIDE 0.9% 500 ML IV ONE (18:06)
[2021-04-15 19:30] LABS: GLUCOSE,POINT OF CARE 81 MG/DL (70-110)
[2021-04-15] MEDS: DEXTROSE 5%-WATER 1,000 ML IV SCH (20:45)
[2021-04-15] MEDS: INSULIN GLARGINE,HUM.REC.ANLOG 100 UNITS/ML SQ SCH (20:46)
[2021-04-15] MEDS ORDERED: VANCOMYCIN HCL 1.5 GM in DEXTROSE 5%-WATER 250 ML IV ONE (23:00)
[2021-04-16 00:03] VITALS: BP 131/52
[2021-04-16] MEDS: METOCLOPRAMIDE HCL 5 MG/ML 2 ML VIAL IVP SCH ×4 (00:11→18:03)
[2021-04-16] MEDS: HEPARIN SODIUM,PORCINE 5,000 UNITS/ML VIAL SQ SCH ×3 (00:11→15:56)
[2021-04-16] MEDS: MEROPENEM 1 GM in SODIUM CHLORIDE 0.9% 100 ML IV SCH ×3 (00:12→15:56)
[2021-04-16 00:25] LABS: GLUCOSE,POINT OF CARE 77 MG/DL (70-110)
[2021-04-16] MEDS: PROPOFOL 1000 MG/ISO-OSM 100 ML IV PRN ×4 (03:15→19:59)
[2021-04-16 04:03] VITALS: BP 114/50
[2021-04-16] MEDS: PHENYLEPHRINE 200 MG/D5%-WATER 250 ML IV PRN ×2 (04:17→15:06)
[2021-04-16 05:09] LABS: HEMOGLOBIN 8.3 g/dL (13.5-17.5); MEAN CORPUSCULAR HEMOGLOBIN 27.9 pg (26.0-34.0); MEAN CORPUSCULAR VOLUME 87 fL (80-100); PLATELET COUNT (AUTO) 154 K/uL (150-450); RED BLOOD CELL COUNT(AUTO) 2.98 MIL/uL (4.50-5.90); RED CELL DISTRIBUTION WIDTH 18.6 % (11.5-14.5)
[2021-04-16 05:36] LABS: ALANINE AMINOTRANSFERASE 59 U/L (12-78); ALBUMIN 3.7 g/dL (3.4-5.0); ALKALINE PHOSPHATASE 366 U/L (46-116); ANION GAP 13 mmol/L (8-16); ASPARTATE AMINOTRANSFERASE 76 U/L (15-37); BILIRUBIN,TOTAL 3.2 mg/dL (0.1-1.0); CALCIUM, TOTAL 7.6 mg/dL (8.8-10.5); CARBON DIOXIDE 23 mmol/L (22-29); CHLORIDE 99 mmol/L (98-107); CREATININE 1.04 mg/dL (0.60-1.30); GLUCOSE,RANDOM 119 mg/dL (70-110); POTASSIUM 3.6 mmol/L (3.5-5.1); SODIUM SERUM 135 mmol/L (136-145); TOTAL PROTEIN, SERUM 6.6 g/dL (6.4-8.2); UREA NITROGEN, BLOOD 62 mg/dL (7-18)
[2021-04-16 05:37] LABS: GLOMERULAR FILTR. RATE CALC > 60 mL/min (>60)
[2021-04-16] MEDS: ALBUMIN HUMAN 25%-25GM/100ML 100 ML IV SCH (05:59)
[2021-04-16] MEDS: FentaNYL CIT 1000MCG/0.9% NACL 100 ML IV PRN ×2 (06:00→15:06)
[2021-04-16 07:06] LABS: BAND NEUTROPHILS % (MANUAL) 30 % (0-5); EOSINOPHILS % (MANUAL) 1 % (1-6); LYMPHOCYTES % (MANUAL) 5 % (22-44); MONOCYTES % (MANUAL) 4 % (2-9); SEGMENTED NEUTROPHILS % 60 % (40-70)
[2021-04-16 08:00] VITALS: BP 99/46
[2021-04-16] MEDS ORDERED: VANCOMYCIN HCL 1.5 GM in DEXTROSE 5%-WATER 250 ML IV SCH (08:00)
[2021-04-16] MEDS: ETHYL ALCOHOL 62% ANTISEPTIC NASAL INHALANT 0.6 ML AMPUL NASAL SCH ×2 (08:43→21:02)
[2021-04-16] MEDS: SODIUM,POTASSIUM PHOSPHATES POWDER PACKET PO SCH (08:43)
[2021-04-16] MEDS: PANTOPRAZOLE SODIUM 40 MG/VIAL IVP SCH (08:44)
[2021-04-16] MEDS: HYDROCORTISONE SOD SUCC 100 MG/2 ML VIAL IVP SCH (08:44)
[2021-04-16] MEDS: METOPROLOL TARTRATE 25 MG TABLET PO SCH ×2 (08:44→20:54)
[2021-04-16] MEDS: HYPROMELLOSE 0.5% 15 ML OPHTHALMIC SOLUTION OU SCH ×2 (10:16→21:02)
[2021-04-16] MEDS: FentaNYL 25 MCG/HOUR PATCH TD SCH (10:17)
[2021-04-16] MEDS: FLUCONAZOLE 400 MG/NACL ISOOSM 200 ML IV SCH (10:28)
[2021-04-16 12:00] VITALS: BP 96/45
[2021-04-16 12:18] LABS: GLUCOSE,POINT OF CARE 119 MG/DL (70-110)
[2021-04-16] MEDS ORDERED: SODIUM CHLORIDE 0.9% 250 ML IV ONE (13:52)
[2021-04-16] MEDS ORDERED: HEPARIN SODIUM,PORCINE 1,000 UNITS/ML VIAL IVP PRN (14:30)
[2021-04-16] MEDS: HEPARIN SODIUM,PORCINE 1,000 UNITS/ML VIAL IVP PRN ×2 (15:07→15:58)
[2021-04-16 16:00] VITALS: BP 90/42
[2021-04-16 17:52] LABS: GLUCOSE,POINT OF CARE 158 MG/DL (70-110)
[2021-04-16 20:00] VITALS: BP 95/43
[2021-04-16 21:03] LABS: ABG A-A DIFF O2 587.9 mmHg (10-20.0); ABG BASE EXCESS -11.6 mmol/L (-2.0-3.0); ABG CARBOXYHEMOGLOBIN 0.9 % (0.0-1.5); ABG HCO3 15.5 mmol/L (22.0-26.0); ABG METHEMOGLOBIN 0.3 % (0.0-1.5); ABG OXYGEN CONTENT 12.4 mL/dL (15.0-23.0); ABG OXYGEN SATURATION 95.2 % (95.0-98.0); ABG OXYHEMOGLOBIN 94.1 % (94.0-100.0); ABG PCO2 52 mmHg (35-45); ABG TOTAL HEMOGLOBIN 9.3 G/dL (12.0-18.0); PO2, ARTERIAL BG 75.7 mmHg (75.0-83.0); SOURCE, BLOOD GAS ARTERIAL; TEMPERATURE, FAHRENHEIT, BG 97.1 FAHREN (96.0-98.6)
[2021-04-16 21:05] LABS: ABG PH 7.145 (7.35-7.450)
[2021-04-16 21:06] LABS: O2 DEVICE,BLOOD GAS VENTILATOR (ROOM AIR); PEEP,BG 5 cm H2O; SITE, BLOOD GAS ARTERIAL LINE; SPONTANEOUS VT, BG 416 ml; VT, ABG 4630 ml
[2021-04-16] MEDS: INSULIN GLARGINE,HUM.REC.ANLOG 100 UNITS/ML SQ SCH (21:06)
[2021-04-16] MEDS: NOREPINEPHRINE 4 MG/D5%-WATER 250 ML IV PRN (21:45)
[2021-04-16 23:32] LABS: GLUCOSE,POINT OF CARE 117 MG/DL (70-110)
[2021-04-17] MEDS ORDERED: POTASSIUM CHLORIDE 10% 40 MEQ/30 ML LIQUID UDCUP GT ONE
[2021-04-17] MEDS ORDERED: DIGOXIN 250 MCG/ML 2 ML AMP IVP ONE
[2021-04-17] MEDS ORDERED: MAGNESIUM SULFATE 1 GM/2 ML VIAL IM ONE
[2021-04-17] MEDS ORDERED: AMIODARONE HCL 360 MG in DEXTROSE 5%-WATER 242.8 ML IV ONE ×2 (00:15→00:30)
[2021-04-17] MEDS ORDERED: AMIODARONE HCL 150 MG in DEXTROSE 5%-WATER 97 ML IV ONE ×4 (00:15)
[2021-04-17 00:18] LABS: GLUCOSE,POINT OF CARE 136 MG/DL (70-110)
[2021-04-17] MEDS ORDERED: MAGNESIUM SULFATE 2 GM/WATER 50 ML IV ONE (00:30)
[2021-04-17 00:31] LABS: HEMATOCRIT 26.6 % (41-53); HEMOGLOBIN 8.5 g/dL (13.5-17.5); MEAN CORPUSCULAR VOLUME 87 fL (80-100); PLATELET COUNT (AUTO) 194 K/uL (150-450); RED BLOOD CELL COUNT(AUTO) 3.04 MIL/uL (4.50-5.90); RED CELL DISTRIBUTION WIDTH 18.5 % (11.5-14.5)
[2021-04-17 00:32] LABS: ANION GAP 18 mmol/L (8-16); CALCIUM, TOTAL 7.5 mg/dL (8.8-10.5); CARBON DIOXIDE 24 mmol/L (22-29); CHLORIDE 97 mmol/L (98-107); CREATININE 1.01 mg/dL (0.60-1.30); GLUCOSE,RANDOM 114 mg/dL (70-110); POTASSIUM 3.7 mmol/L (3.5-5.1); SODIUM SERUM 139 mmol/L (136-145); UREA NITROGEN, BLOOD 45 mg/dL (7-18)
[2021-04-17 00:34] LABS: BAND NEUTROPHILS % (MANUAL) 27 % (0-5); LYMPHOCYTES % (MANUAL) 6 % (22-44); MONOCYTES % (MANUAL) 4 % (2-9); SEGMENTED NEUTROPHILS % 63 % (40-70)
[2021-04-17 00:35] LABS: GLOMERULAR FILTR. RATE CALC > 60 mL/min (>60)
[2021-04-17] MEDS: MEROPENEM 1 GM in SODIUM CHLORIDE 0.9% 100 ML IV SCH ×3 (00:58→19:01)
[2021-04-17] MEDS: HEPARIN SODIUM,PORCINE 5,000 UNITS/ML VIAL SQ SCH ×3 (01:08→19:00)
[2021-04-17] MEDS: METOCLOPRAMIDE HCL 5 MG/ML 2 ML VIAL IVP SCH ×4 (01:08→18:56)
[2021-04-17] MEDS ORDERED: DIGOXIN 250 MCG/ML 2 ML AMP IVP PRN (01:30)
[2021-04-17] MEDS: PROPOFOL 1000 MG/ISO-OSM 100 ML IV PRN ×4 (02:35→21:48)
[2021-04-17 04:00] VITALS: BP 92/43
[2021-04-17 05:22] LABS: ALBUMIN 3.3 g/dL (3.4-5.0); BILIRUBIN,TOTAL 3.3 mg/dL (0.1-1.0); CALCIUM, TOTAL 7.6 mg/dL (8.8-10.5); CREATININE 1.23 mg/dL (0.60-1.30); TOTAL PROTEIN, SERUM 6.5 g/dL (6.4-8.2)
[2021-04-17] MEDS: NOREPINEPHRINE 4 MG/D5%-WATER 250 ML IV PRN ×3 (05:59→21:49)
[2021-04-17] MEDS ORDERED: VASOPRESSIN 40 UNITS in DEXTROSE 5%-WATER 98 ML IV PRN (06:00)
[2021-04-17] MEDS ORDERED: AMIODARONE HCL 540 MG in DEXTROSE 5%-WATER 239.2 ML IV ONE ×2 (06:15→06:30)
[2021-04-17] MEDS: INSULIN LISPRO 100 UNITS/ML SQ PRN (06:23)
[2021-04-17] MEDS: PHENYLEPHRINE 200 MG/D5%-WATER 250 ML IV PRN (07:06)
[2021-04-17 08:00] VITALS: BP 110/52
[2021-04-17] MEDS: FentaNYL CIT 1000MCG/0.9% NACL 100 ML IV PRN (08:04)
[2021-04-17] MEDS: HYPROMELLOSE 0.5% 15 ML OPHTHALMIC SOLUTION OU SCH (09:00)
[2021-04-17] MEDS ORDERED: CASPOFUNGIN ACETATE 70 MG in SODIUM CHLORIDE 0.9% 250 ML IV ONE (11:00)
[2021-04-17] MEDS: HYDROCORTISONE SOD SUCC 100 MG/2 ML VIAL IVP SCH (11:04)
[2021-04-17] MEDS: PANTOPRAZOLE SODIUM 40 MG/VIAL IVP SCH (11:04)
[2021-04-17] MEDS: METOPROLOL TARTRATE 25 MG TABLET PO SCH (11:05)
[2021-04-17] MEDS: ETHYL ALCOHOL 62% ANTISEPTIC NASAL INHALANT 0.6 ML AMPUL NASAL SCH (11:09)
[2021-04-17] MEDS: SODIUM,POTASSIUM PHOSPHATES POWDER PACKET PO SCH (11:09)
[2021-04-17 12:45] LABS: GLUCOSE,POINT OF CARE 166 MG/DL (70-110)
[2021-04-17 12:45] LABS: GLUCOSE,POINT OF CARE 138 MG/DL (70-110)
[2021-04-17 20:00] VITALS: BP 90/48
[2021-04-17] MEDS ORDERED: MORPHINE SULFATE 100 MG/NS/PF 100 ML IV PRN (20:45)
[2021-04-17] MEDS ORDERED: LORazepam 2 MG/ML VIAL IVP PRN (20:45)
[2021-04-17] MEDS ORDERED: ATROPINE SULFATE 1% 5 ML OPHTHALMIC SOLUTION SL SCH (21:00)
[2021-04-17 21:48] VITALS: BP 109/51
[2021-04-17] MEDS ORDERED: DOPamine HCL/D5W 400 MG/250 ML IV BAG IV ONE (23:55)
[2021-04-17] MEDS ORDERED: EPINEPHrine 1:10,000 [1 MG/10 ML] SYRINGE IVP ONE (23:55)
[2021-04-17] MEDS ORDERED: 0.9% SODIUM CHLORIDE 1,000 ML BAG IV ONE (23:55)
[2021-04-18] MEDS ORDERED: AMIODARONE HCL 750 MG in DEXTROSE 5%-WATER 485 ML IV SCH ×2 (00:15→00:30)
[2021-04-18] MEDS ORDERED: CASPOFUNGIN ACETATE 50 MG in SODIUM CHLORIDE 0.9% 250 ML IV SCH (11:00)
== END 2021-04-17 23:56 | DRG 4 ==
LOC: EMS 23:18 → 5N 03-26 02:34 → ICU 03-26 09:10
PROVIDERS: ADMIT Hospitalist; ATTEND Hospitalist
PROC: 5A1955Z Respiratory Ventilation, Greater than 96 Consecutive Hours (ICD-10-PCS; principal; 2021-03-26)
PROC: 0BH17EZ Insertion of Endotracheal Airway into Trachea, Via Natural or Artificial Opening (ICD-10-PCS; 2021-03-26)
PROC: 05HY33Z Insertion of Infusion Device into Upper Vein, Percutaneous Approach (ICD-10-PCS; 2021-03-26)
PROC: B54CZZA Ultrasonography of Left Lower Extremity Veins, Guidance (ICD-10-PCS; 2021-03-26)
PROC: 02HV33Z Insertion of Infusion Device into Superior Vena Cava, Percutaneous Approach (ICD-10-PCS; 2021-03-26)
PROC: B548ZZA Ultrasonography of Superior Vena Cava, Guidance (ICD-10-PCS; 2021-03-26)
PROC: 04HY32Z Insertion of Monitoring Device into Lower Artery, Percutaneous Approach (ICD-10-PCS; 2021-03-26)
PROC: 4A133B1 Monitoring of Arterial Pressure, Peripheral, Percutaneous Approach (ICD-10-PCS; 2021-03-26)
PROC: 4A133J1 Monitoring of Arterial Pulse, Peripheral, Percutaneous Approach (ICD-10-PCS; 2021-03-26)
PROC: 0B113F4 Bypass Trachea to Cutaneous with Tracheostomy Device, Percutaneous Approach (ICD-10-PCS; 2021-04-10)
PROC: 30233N1 Transfusion of Nonautologous Red Blood Cells into Peripheral Vein, Percutaneous Approach (ICD-10-PCS; 2021-04-15)
DX: A41.9 Sepsis, unspecified organism (principal); J96.01 Acute respiratory failure with hypoxia; J96.02 Acute respiratory failure with hypercapnia; R65.21 Severe sepsis with septic shock; E43 Unspecified severe protein-calorie malnutrition; N17.0 Acute kidney failure with tubular necrosis; J15.1 Pneumonia due to Pseudomonas; J15.5 Pneumonia due to Escherichia coli; E87.0 Hyperosmolality and hypernatremia; E87.2 Acidosis; N17.9 Acute kidney failure, unspecified; J44.0 Chronic obstructive pulmonary disease with (acute) lower respiratory infection; E87.4 Mixed disorder of acid-base balance; J47.1 Bronchiectasis with (acute) exacerbation; I42.9 Cardiomyopathy, unspecified; B49 Unspecified mycosis; Z99.11 Dependence on respirator [ventilator] status; Z68.41 Body mass index [BMI] 40.0-44.9, adult; R62.7 Adult failure to thrive; D64.9 Anemia, unspecified; D69.6 Thrombocytopenia, unspecified; E86.0 Dehydration; E87.6 Hypokalemia; E11.65 Type 2 diabetes mellitus with hyperglycemia; E83.39 Other disorders of phosphorus metabolism; I48.0 Paroxysmal atrial fibrillation; Z66 Do not resuscitate; G71.00 Muscular dystrophy, unspecified; Z20.822 Contact with and (suspected) exposure to COVID-19; Z95.828 Presence of other vascular implants and grafts; Z86.11 Personal history of tuberculosis; Z86.718 Personal history of other venous thrombosis and embolism; Z87.01 Personal history of pneumonia (recurrent); Z79.4 Long term (current) use of insulin; Z79.51 Long term (current) use of inhaled steroids; Z79.899 Other long term (current) drug therapy; Z93.1 Gastrostomy status; Z98.42 Cataract extraction status, left eye; Z98.41 Cataract extraction status, right eye
CPT/HCPCS: 31624; 36600; 70450; 71045; 71250; 76770; 80048; 80053; 81001; 82140; 82550; 82805; 82948; 82962; 83605; 83615; 83690; 83735; 83880; 84100; 84132; 84145; 84484; 85014; 85018; 85025; 85610; 85730; 86140; 86738; 86850; 86900; 86901; 86923; 87015; 87040; 87070; 87077; 87081; 87086; 87101; 87106; 87186; 87205; 87206; 87220; 87340; 87449; 87899; 93005; 93306; 94002; 94003; 94640; 99291; C9113; G0238; G0378; G0480; G0481; J0131; J0171; J0282; J0330; J0360; J0637; J0696; J1160; J1265; J1450; J1644; J1720; J1815; J1940; J2060; J2185; J2250; J2270; J2370; J2543; J2704; J2765; J3370; J3475; J3480; J3490; J7030; J7040; J7050; J7060; J7120; P9016; P9041; P9046; Q9967; 36415-L1; 36415-TC; J7613; U0003